=== PATIENT | female | born 1995 | race Caucasian/White ===

== ENCOUNTER 2017-09-26 09:38 | Day surgery (SDC) | payer BC, SELFPAY ==
[2017-09-26] VITALS (9 sets, daily range): BP systolic 124–154; BP diastolic 63–76; PULSE 87–98; RESP 14–16; TEMP 36.4–36.9; O2SAT 95–100; BMI 35.6
--- NOTE | 2017-09-26 | PILCYST_PTH ---
PATIENT: RENETTA DUONG LOC: [facility] [place] U#:[id number] AGE/SX: 22/F ROOM: RE09/26/[address]: Dr. Brenton Alegre MD : [id number] BED: DIS: 09/26/2017 SPEC #: [id number] RECD: 09/26/17 17:31 STATUS: ENRIQUE CARY #: [id number] JOSE C: 09/26/17 00:[address]: Brenton Alegre DEPT: SURGICAL PATHOLOGY RECD BY: Shahriar Patel ENTERED: 09/27/17 11:49 SP TYPE: Pilonidal OTHR DR: Dr. Mayito River MD Tissues: PILONIDAL TISSUE Procedures: Surgery Specimen Level III HEADER OPERATION: Excision pilonidal cyst PRE-OP DIAGNOSIS: Pilonidal cyst without abscess TISSUE SUBMITTED: Pilonidal cyst MICROSCOPIC DIAGNOSIS Pilonidal cyst, excision: Consistent with pilonidal cyst with associated acute and chronic inflammation and granulation. AM:paulette 09/28/17 MICROSCOPIC DESCRIPTION Slides are reviewed. GROSS DESCRIPTION Received in fixative is one container labeled with the patient's name and designated pilonidal cyst. The specimen consists of a piece of skin with underlying tissue measuring 10 x 1 cm and up to 3.5 cm in thickness. Sections reveal a congested, focally cystic area. No mass lesion is identified. Piece Marker [employer] sections are submitted in two cassettes. / SJ:paulette 09/27/17 TC:2 CPT: 80655
[2017-09-26 10:07] LABS: Internal QC Validated? YES +Cl - CLEAR BKGD; Pregnancy, Urine Negative Negative
[2017-09-26] MEDS: Clindamycin 900 MG/50 ML BAG 75 MG IV (11:11)
--- NOTE | 2017-09-26 11:21 | DCINST_ITS ---
Discharge Diet: Light diet - advance as tolerated - If you have questions about your diet instructions, please talk to your doctor. Discharge Activity: May Not Drive - for 1 week or while taking narcotic pain medicine. May shower in (days): 1 Lifting Restrictions: 10 pounds Call your doctor if your incision/area has: Continuous Slow Oozing, Sudden Increased Bleeding, Increased Pain/ Swelling, Increased Redness, Foul Smelling Discharge Call your doctor if you observe: Fever of 101 or Higher Suture Line Care: Avoid Pulling/Pushing, Avoid Pinching/Bending Additional Dressing/Incision Instructions:: Change or remove dressing in 4 days. Leave steri-strips in place for 1 week. Allergies/Adverse Reactions: Allergies amoxicillin Allergy (Mild, Verified 09/24/17 10:03) rash Medications to take at Discharge norethindrone-e.estradiol triphasic 0.5 mg/0.75 mg/1 mg-35 mcg tablet 1 tab PO QDAY 09/04/17 Oxycodone HCl/Acetaminophen [Percocet 5/325] 1 - 2 tab PO Q4H PRN PRN 4 Days # 30 tab 09/26/17 The following prescriptions were given: Oxycodone HCl/Acetaminophen [Percocet 5/325] 1 - 2 tab PO Q4H PRN PRN 4 Days # 30 tab PRN Reason: Pain Primary Care Physician: Mayito River MD [Primary Care Provider] - Please Follow Up With: Brenton Alegre MD - [phone] When: Call to make an appointment to be seen in about 10 days.
--- NOTE | 2017-09-26 11:21 | PCM.OPRPT ---
Problem List (1) Pilonidal cyst without abscess Status: Acute Report of Operation Date of Procedure: 09/26/17 Pre-Operative Diagnosis: L05.91 Pilonidal cyst without abscess Post-Operative Diagnosis: same Surgery/Procedure Performed:: Excision of pilonidal cyst Type of Anesthesia:: General Anesthesiologist: Lopez Hayes Estimated Blood Loss (mL): <25 cc Description of Procedure: Patient was brought into the operating room. Under excellent general endotracheal intubation the patient was then placed in the prone position properly padded. The buttocks was taped apart. It was sterilely prepped and draped in the usual fashion. A 14 cm elliptical incision was made around the pilonidal area. This dissection was carried down all the way to the tailbone and the fascia of the tailbone with the use of electrocautery. I sent the specimen to pathology for permanent sectioning. I injected Exparel all around the incision and deep into the incision. I irrigated out the wound I had good hemostasis. I brought the wound together with a deep layer of 0 Vicryl interrupted sutures in the deep dermal layer of 2-0 Vicryl. I did not feel it was necessary that I bring any further together the skin with Monocryl given the fact that it was so closely approximated. Steri-Strips are applied sterile dressings were applied and the patient tolerated the procedure well. - Admit VTE Documentation VTE Present on Admission: No VTE Mechan Device Prophylaxis: SCD's VTE Pharm Prophylaxis ordered?: No Reason prophylaxis not ordered:: Treatment Not Indicated
[2017-09-26] MEDS: BUPIVACAINE LIPOSOME/PF 20 ML VIAL OPERA.SITE (11:35)
== END 2017-09-26 17:03 | disposition home or self-care (01) ==
LOC: SDC 09:39 → AC 09:41
PROVIDERS: Family Provider Family Medicine; PCP Family Medicine; Visit Provider Surgery
PROC: (CPT 11771; principal; 2017-09-26 11:05)
DX: L05.91 Pilonidal cyst without abscess (principal); M54.5 Low back pain; G89.29 Other chronic pain; Z79.899 Other long term (current) drug therapy; Z86.2 Personal history of diseases of the blood and blood-forming organs and certain disorders involving the immune mechanism
CPT/HCPCS: 00300; 11771; 81025; 88304; J7120; J2405

== ENCOUNTER 2018-02-08 16:30 | Outpatient (RCR) | payer BC, SELFPAY ==
[2018-01-17 10:31] VITALS: BP 135/86; PULSE 87; RESP 18; TEMP 36.6
--- NOTE | 2018-01-17 13:15 | HP.PCM_ITS ---
(1) Non-healing surgical wound Status: Acute Current Visit: Yes Code(s): T81.89XA - Other complications of procedures, not elsewhere classified, initial encounter History of Present Illness Date of Service: 01/17/18 Chief Complaint: Non healing surgical wound. History of Wound: Ms. Ochoa is a 22yo in apparent stable health who presents to the wound center due to non healing post surgical wound. She had a pilonidal cyst surgery in september due to recurrent pilonidal cysyt however,since surgery, she has had problems with healing. She currently packs by herself with gauze and changes these daily. She still follows up with her primary care physician and general surgeon. She denies chills, fever or otherwise feeling of unwell. Past Medical History Allergies/Adverse Reactions: Allergies amoxicillin Allergy (Mild, Verified 01/17/18 10:50) rash Home Medications: Ambulatory Orders Medication Instructions Recorded Paroxetine [Paxil] 10 mg PO DAILY 01/17/18 Smoking Status: Never smoker Review of Systems Constitutional: Denies: Anorexia, Chills, Fever Eyes: Denies: Blurred vision, Pain, Redness HEENT: Denies: Difficulty Swallowing Cardiovascular: Denies: Chest Pain, Chest Tightness Respiratory: Denies: Cough, Shortness of Breath Gastrointestinal: Denies: Abdominal Pain, Hematemesis, Vomiting Skin: Denies: Jaundice - Physical Exam Vital Signs Temp Pulse Resp BP 97.9 F 87 18 135/86 H 01/17/18 10:31 01/17/18 10:31 01/17/18 10:31 01/17/18 10:31 General: Alert, Oriented x3, Cooperative, No apparent distress HEENT: Atraumatic Oral: Moist Mucosa Neck: Supple Lungs: Clear to auscultation, Normal air movement Cardiovascular: Regular rate, Regular Rhythm Abdomen: Soft Extremities: No cyanosis, No edema Skin: Ulcer/ Wound Wound Measurements and Assessment WC - Nurse 1 - General Ulcer Measurement Start: 01/17/18 09:09 Freq: Status: Active Protocol: Activity Type Activity Date Activity User E-Sign Co-Sign Detail Recorded Client Recorded Date Recorded By Document 01/17/18 10:31 DL [id number] 01/17/18 10:46 DL 01/17/18 10:31 Wound Center Nurse 1 [Ulcer Assessment] #1 Pilonidal -Current Size (cm) - Length 4 -Current Size (cm) - Width 1 -Current Size (cm) - Depth 4.4 -Total Square Cm 4 -Photo Taken Yes -Tunneling Yes -Tunneling Position (O'clock) 12 -Tunneling Distance (cm) 4 -Exudate Amt Large (67-100%) -Exudate Type Serosanguineous -Wound Margin Distinct, Outline Attached -Granulation Amt Large (67-100%) -Granulation Quality Red -Necrosis Amt None Present (0 %) -Structure Exposed N/A -Texture (Halima-wound Skin Appearance) No Abnormality -Moisture (Halima-wound Skin Appearance No Abnormality ) -Color (Halima-wound Skin Appearance) No Abnormality -Temperature (Halima-wound Skin No Abnormality Appearance) (Pt Warm) -Ulcer Cleansing Wound Cleanser -Foul Odor after Cleansing No -Anesthetic Used 4% Lidocaine Solution Musculoskeletal: No Muscle Wasting Neurological: Cranial nerves II-XII grossly intact Psych/Mental Status: Normal Affect Debridement Note Wound debrided: Midline Buttocks Wound Grade/Stage: Stage III Type of Debridement: Excisional debridement Anesthesia Used: 4% Lidocaine Solution Depth: Down to and including healthy tissue, in the subcutaneous layer Percentage of wound debrided: 100 Instrument Used: 5mm curette Tissue Removed: Biofilm and devitalized tissue Severity: Fat Layer Exposed Amount of bleeding with debridement: Mild Bleeding Controlled with: Pressure Patient tolerated procedure well Assessment/Plan Active Problems (Last Reviewed 12/31/17 @ 10:12 by Roopa Neil) Non-healing surgical wound (Acute) Assessment: Nonhealing postsurgical wound. Plan: As stated above patient presents with a nonhealing post pilonidal cyst removal wound. Surgery was said to be in September. Current measures so far has not helped. Debridement done as documented above. Procedure was well- tolerated. Sindhu daily with Adaptic over top for now however, I believe patient will most benefit from a wound VAC. Process is underway to get this. Increased protein intake/supplements. Follow-up in 1 week. Advised to call with any questions or concerns. This note was generated with [employer] software. It may contain incorrect words, spelling, and punctuation that were not noted in checking the note before signing.
[2018-01-23 11:56] VITALS: BP 136/69; PULSE 80; RESP 16; TEMP 36.9
--- NOTE | 2018-01-23 12:19 | PCM.WC.PN ---
(1) Non-healing surgical wound Status: Acute Current Visit: Yes Code(s): T81.89XA - Other complications of procedures, not elsewhere classified, initial encounter Type of Wound Date of Service: 01/23/18 Chief Complaint: Non healing surgical wound. History of Wound: Ms. Ochoa is a 22yo in apparent stable health who presents to the wound center due to non healing post surgical wound. She had a pilonidal cyst surgery in september due to recurrent pilonidal cysyt however,since surgery, she has had problems with healing. She currently packs by herself with gauze and changes these daily. She still follows up with her primary care physician and general surgeon. She denies chills, fever or otherwise feeling of unwell. Progress of Wound: Stable. No new complaints. - Physical Exam Vital Signs Temp Pulse Resp BP 98.4 F 80 16 136/69 H 01/23/18 11:56 01/23/18 11:56 01/23/18 11:56 01/23/18 11:56 General: Alert, Oriented x3, Cooperative, No apparent distress HEENT: Atraumatic Oral: Moist Mucosa Neck: Supple Lungs: Normal air movement Abdomen: Non Tender Extremities: No cyanosis Skin: Ulcer/ Wound Wound Measurements and Assessment WC - Nurse 1 - General Ulcer Measurement Start: 01/17/18 09:09 Freq: Status: Active Protocol: Activity Type Activity Date Activity User E-Sign Co-Sign Detail Recorded Client Recorded Date Recorded By Document 01/23/18 11:56 NV [email or web address] 01/23/18 12:03 NV 01/23/18 11:56 Wound Center Nurse 1 [Ulcer Assessment] #1 Pilonidal -Combined with other wound No -Current Size (cm) - Length 4 -Current Size (cm) - Width 1.0 -Current Size (cm) - Depth 1.8 -Total Square Cm 4.0 -Photo Taken No -Tunneling No -Undermining/Tunneling No -Circular Undermining No -Exudate Amt Small (1-33%) -Exudate Type Serosanguineous -Wound Margin Thickened -Granulation Amt Large (67-100%) -Granulation Quality Red -Slough/Fibrin No -Texture (Halima-wound Skin Appearance) Assessed -Moisture (Halima-wound Skin Appearance Assessed ) -Color (Halima-wound Skin Appearance) Assessed -Temperature (Halima-wound Skin No Abnormality Appearance) (Pt Warm) -Tenderness on Palpation (Halima-wound No Skin Appearance) -Ulcer Cleansing Rinsed/ Irrigated with Saline -Foul Odor after Cleansing No -Anesthetic Used 4% Lidocaine Solution - Nurse 2 - General Ulcer CM Notes Start: 01/17/18 09:09 Freq: Status: Active Protocol: Activity Type Activity Date Activity User E-Sign Co-Sign Detail Recorded Client Recorded Date Recorded By Document 01/23/18 12:13 [id number] 01/23/18 12:18 01/23/18 12:13 Wound Center Nurse 2 [Procedure/Treatment] -Time 12:14 -Correct Patient Yes -Correct Side, Site, Position Yes -Correct Procedure Yes -Procedure Performed Yes -Type of Procedure Debridement -Clinical Debridement Subcutaneous -Post Debridement Size (cm) - Length 5.0 -Post Debridement Size (cm) - Width 1.0 -Post Debridement Size (cm) - Depth 3.5 -Total Square Cm 5.00 -Wound/Ulcer Outcome Not Healed -Ulcer Cleansing Rinsed/ Irrigated with Saline -Foul Odor after Cleansing No -Bioengineered Tissue No -Bleeding Controlled with Pressure -Treatment Response Procedure Tolerated Well [See Physician Procedure note for Specifics] Pain Scale: 0-10 Numeric [Pain] -Is Patient Pain Free? Yes Musculoskeletal: No Muscle Wasting Neurological: Cranial nerves II-XII grossly intact Psych/Mental Status: Normal Affect Debridement Note Post-Debridement Measurements/Treatment - Nurse 2 - General Ulcer CM Notes Start: 01/17/18 09:09 Freq: Status: Active Protocol: Activity Type Activity Date Activity User E-Sign Co-Sign Detail Recorded Client Recorded Date Recorded By Document 01/23/18 12:13 [id number] 01/23/18 12:18 01/23/18 12:13 Wound Center Nurse 2 #1 Pilonidal -Time 12:14 -Correct Patient Yes -Correct Side, Site, Position Yes -Correct Procedure Yes -Procedure Performed Yes -Type of Procedure Debridement -Clinical Debridement Subcutaneous -Post Debridement Size (cm) - Length 5.0 -Post Debridement Size (cm) - Width 1.0 -Post Debridement Size (cm) - Depth 3.5 -Total Square Cm 5.00 -Wound/Ulcer Outcome Not Healed -Ulcer Cleansing Rinsed/ Irrigated with Saline -Foul Odor after Cleansing No -Bioengineered Tissue No -Bleeding Controlled with Pressure -Treatment Response Procedure Tolerated Well Pain Scale: 0-10 Numeric Is Patient Pain Free? Yes Wound debrided: Midline Buttocks Wound Grade/Stage: Stage II Type of Debridement: Excisional debridement Anesthesia Used: 4% Lidocaine Solution Depth: Down to and including healthy tissue, in the subcutaneous layer Percentage of wound debrided: 100 Instrument Used: 5mm curette Tissue Removed: Devitalized tissue and Biofilm Severity: Fat Layer Exposed Amount of bleeding with debridement: Mild Bleeding Controlled with: Pressure Patient tolerated procedure well Assessment/Plan Active Problems (Last Reviewed 12/31/17 @ 10:12 by Roopa Neil) Non-healing surgical wound (Acute) Assessment: Nonhealing postsurgical wound. Plan: Debridement done as documented above. Procedure was well-tolerated. Vac now available. Will start at 80mmHg. Adaptic over wound prior to foam placement. Follow up on sunday for vac change. May continue to work if she can accomodate Vac. Increased protein intake/supplements. Follow-up in 1 week. Advised to call with any questions or concerns. This note was generated with [employer] dictation software. It may contain incorrect words, spelling, and punctuation that were not noted in checking the note before signing.
--- NOTE | 2018-01-23 12:23 | PN.PCM_ITS ---
(1) Non-healing surgical wound Status: Acute Current Visit: Yes Code(s): T81.89XA - Other complications of procedures, not elsewhere classified, initial encounter Type of Wound Date of Service: 01/23/18 Chief Complaint: Non healing surgical wound. History of Wound: Ms. Ochoa is a 22yo in apparent stable health who presents to the wound center due to non healing post surgical wound. She had a pilonidal cyst surgery in september due to recurrent pilonidal cysyt however,since surgery, she has had problems with healing. She currently packs by herself with gauze and changes these daily. She still follows up with her primary care physician and general surgeon. She denies chills, fever or otherwise feeling of unwell. Progress of Wound: Stable. No new complaints. - Physical Exam Vital Signs Temp Pulse Resp BP 98.4 F 80 16 136/69 H 01/23/18 11:56 01/23/18 11:56 01/23/18 11:56 01/23/18 11:56 General: Alert, Oriented x3, Cooperative, No apparent distress HEENT: Atraumatic Oral: Moist Mucosa Neck: Supple Lungs: Normal air movement Abdomen: Non Tender Extremities: No cyanosis Skin: Ulcer/ Wound Wound Measurements and Assessment WC - Nurse 1 - General Ulcer Measurement Start: 01/17/18 09:09 Freq: Status: Active Protocol: Activity Type Activity Date Activity User E-Sign Co-Sign Detail Recorded Client Recorded Date Recorded By Document 01/23/18 11:56 [place] [id number] 01/23/18 12:03 [place] 01/23/18 11:56 Wound Center Nurse 1 [Ulcer Assessment] #1 Pilonidal -Combined with other wound No -Current Size (cm) - Length 4 -Current Size (cm) - Width 1.0 -Current Size (cm) - Depth 1.8 -Total Square Cm 4.0 -Photo Taken No -Tunneling No -Undermining/Tunneling No -Circular Undermining No -Exudate Amt Small (1-33%) -Exudate Type Serosanguineous -Wound Margin Thickened -Granulation Amt Large (67-100%) -Granulation Quality Red -Slough/Fibrin No -Texture (Halima-wound Skin Appearance) Assessed -Moisture (Halima-wound Skin Appearance Assessed ) -Color (Halima-wound Skin Appearance) Assessed -Temperature (Halima-wound Skin No Abnormality Appearance) (Pt Warm) -Tenderness on Palpation (Halima-wound No Skin Appearance) -Ulcer Cleansing Rinsed/ Irrigated with Saline -Foul Odor after Cleansing No -Anesthetic Used 4% Lidocaine Solution - Nurse 2 - General Ulcer CM Notes Start: 01/17/18 09:09 Freq: Status: Active Protocol: Activity Type Activity Date Activity User E-Sign Co-Sign Detail Recorded Client Recorded Date Recorded By Document 01/23/18 12:13 [id number] 01/23/18 12:18 01/23/18 12:13 Wound Center Nurse 2 [Procedure/Treatment] -Time 12:14 -Correct Patient Yes -Correct Side, Site, Position Yes -Correct Procedure Yes -Procedure Performed Yes -Type of Procedure Debridement -Clinical Debridement Subcutaneous -Post Debridement Size (cm) - Length 5.0 -Post Debridement Size (cm) - Width 1.0 -Post Debridement Size (cm) - Depth 3.5 -Total Square Cm 5.00 -Wound/Ulcer Outcome Not Healed -Ulcer Cleansing Rinsed/ Irrigated with Saline -Foul Odor after Cleansing No -Bioengineered Tissue No -Bleeding Controlled with Pressure -Treatment Response Procedure Tolerated Well [See Physician Procedure note for Specifics] Pain Scale: 0-10 Numeric [Pain] -Is Patient Pain Free? Yes Musculoskeletal: No Muscle Wasting Neurological: Cranial nerves II-XII grossly intact Psych/Mental Status: Normal Affect Debridement Note Post-Debridement Measurements/Treatment - Nurse 2 - General Ulcer CM Notes Start: 01/17/18 09:09 Freq: Status: Active Protocol: Activity Type Activity Date Activity User E-Sign Co-Sign Detail Recorded Client Recorded Date Recorded By Document 01/23/18 12:13 [email or web address] 01/23/18 12:18 01/23/18 12:13 Wound Center Nurse 2 #1 Pilonidal -Time 12:14 -Correct Patient Yes -Correct Side, Site, Position Yes -Correct Procedure Yes -Procedure Performed Yes -Type of Procedure Debridement -Clinical Debridement Subcutaneous -Post Debridement Size (cm) - Length 5.0 -Post Debridement Size (cm) - Width 1.0 -Post Debridement Size (cm) - Depth 3.5 -Total Square Cm 5.00 -Wound/Ulcer Outcome Not Healed -Ulcer Cleansing Rinsed/ Irrigated with Saline -Foul Odor after Cleansing No -Bioengineered Tissue No -Bleeding Controlled with Pressure -Treatment Response Procedure Tolerated Well Pain Scale: 0-10 Numeric Is Patient Pain Free? Yes Wound debrided: Midline Buttocks Wound Grade/Stage: Stage II Type of Debridement: Excisional debridement Anesthesia Used: 4% Lidocaine Solution Depth: Down to and including healthy tissue, in the subcutaneous layer Percentage of wound debrided: 100 Instrument Used: 5mm curette Tissue Removed: Devitalized tissue and Biofilm Severity: Fat Layer Exposed Amount of bleeding with debridement: Mild Bleeding Controlled with: Pressure Patient tolerated procedure well Assessment/Plan Active Problems (Last Reviewed 12/31/17 @ 10:12 by Roopa Neil) Non-healing surgical wound (Acute) Assessment: Nonhealing postsurgical wound. Plan: Debridement done as documented above. Procedure was well-tolerated. Vac now available. Will start at 80mmHg. Adaptic over wound prior to foam placement. Follow up on sunday for vac change. May continue to work if she can accomodate Vac. Increased protein intake/supplements. Follow-up in 1 week. Advised to call with any questions or concerns. This note was generated with [employer] dictation software. It may contain incorrect words, spelling, and punctuation that were not noted in checking the note before signing.
[2018-01-25 16:49] VITALS: BP 140/89; PULSE 96; RESP 18; TEMP 36.8
[2018-01-28 10:52] VITALS: BP 126/70; PULSE 94; RESP 18; TEMP 37.3
[2018-01-31 10:30] VITALS: BP 141/74; PULSE 88; RESP 18; TEMP 36.6
--- NOTE | 2018-01-31 11:28 | PCM.WC.PN ---
(1) Non-healing surgical wound Status: Acute Current Visit: Yes Code(s): T81.89XA - Other complications of procedures, not elsewhere classified, initial encounter Type of Wound Date of Service: 01/31/18 Chief Complaint: Non healing surgical wound. History of Wound: Ms. Ochoa is a 22yo in apparent stable health who presents to the wound center due to non healing post surgical wound. She had a pilonidal cyst surgery in september due to recurrent pilonidal cysyt however,since surgery, she has had problems with healing. She currently packs by herself with gauze and changes these daily. She still follows up with her primary care physician and general surgeon. She denies chills, fever or otherwise feeling of unwell. Progress of Wound: Stable. No new complaints. - Physical Exam Vital Signs Temp Pulse Resp BP 98 F 88 18 141/74 H 01/31/18 10:30 01/31/18 10:30 01/31/18 10:30 01/31/18 10:30 General: Alert, Oriented x3, Cooperative, No apparent distress HEENT: Atraumatic Oral: Moist Mucosa Neck: Supple Lungs: Normal air movement Abdomen: Non Tender Skin: Ulcer/ Wound Wound Measurements and Assessment WC - Nurse 1 - General Ulcer Measurement Start: 01/17/18 09:09 Freq: Status: Active Protocol: Activity Type Activity Date Activity User E-Sign Co-Sign Detail Recorded Client Recorded Date Recorded By Document 01/31/18 10:30 RB [id number] 01/31/18 10:33 RB 01/31/18 10:30 Wound Center Nurse 1 [Ulcer Assessment] #1 Pilonidal -Combined with other wound No -Current Size (cm) - Length 5.4 -Current Size (cm) - Width 1 -Current Size (cm) - Depth 1.5 -Total Square Cm 5.4 -Photo Taken No -Tunneling No -Undermining/Tunneling No -Circular Undermining No -Classification - Thickness Full Thickness without Exposed Support Structure -Exudate Amt Medium (34-66%) -Exudate Type Serosanguineous -Wound Margin Distinct, Outline Attached -Granulation Amt Large (67-100%) -Slough/Fibrin Yes -Necrosis Amt Small (1-33%) -Necrotic Tissue Type Adherent Slough -Structure Exposed N/A -Texture (Halima-wound Skin Appearance) Assessed -Moisture (Halima-wound Skin Appearance Assessed ) -Color (Halima-wound Skin Appearance) Assessed -Temperature (Halima-wound Skin No Abnormality Appearance) (Pt Warm) -Tenderness on Palpation (Halima-wound No Skin Appearance) -Ulcer Cleansing Wound Cleanser -Foul Odor after Cleansing No -Anesthetic Used 4% Lidocaine Solution - Nurse 2 - General Ulcer CM Notes Start: 01/17/18 09:09 Freq: Status: Active Protocol: Activity Type Activity Date Activity User E-Sign Co-Sign Detail Recorded Client Recorded Date Recorded By Document 01/31/18 10:55 MW [id number] 01/31/18 10:57 MW 01/31/18 10:55 Wound Center Nurse 2 [Procedure/Treatment] -Time 10:55 -Correct Patient Yes -Correct Side, Site, Position Yes -Correct Procedure Yes -Procedure Performed Yes -Type of Procedure Debridement -Clinical Debridement Subcutaneous -Post Debridement Size (cm) - Length 5.0 -Post Debridement Size (cm) - Width 1.7 -Post Debridement Size (cm) - Depth 2.0 -Total Square Cm 8.50 -Wound/Ulcer Outcome Not Healed -Ulcer Cleansing Rinsed/ Irrigated with Saline -Foul Odor after Cleansing No -Bioengineered Tissue No -Bleeding Controlled with Pressure -Treatment Response Procedure Tolerated Well [See Physician Procedure note for Specifics] Pain Scale: 0-10 Numeric [Pain] -Is Patient Pain Free? Yes Musculoskeletal: No Muscle Wasting Neurological: Cranial nerves II-XII grossly intact Psych/Mental Status: Normal Affect Debridement Note Post-Debridement Measurements/Treatment - Nurse 2 - General Ulcer CM Notes Start: 01/17/18 09:09 Freq: Status: Active Protocol: Activity Type Activity Date Activity User E-Sign Co-Sign Detail Recorded Client Recorded Date Recorded By Document 01/23/18 12:13 CS [id number] 01/23/18 12:18 CS Document 01/31/18 10:55 MW [id number] 01/31/18 10:57 MW 01/23/18 01/31/18 12:13 10:55 Wound Center Nurse 2 #1 Pilonidal -Time 12:14 10:55 -Correct Patient Yes Yes -Correct Side, Site, Position Yes Yes -Correct Procedure Yes Yes -Procedure Performed Yes Yes -Type of Procedure Debridement Debridement -Clinical Debridement Subcutaneous Subcutaneous -Post Debridement Size (cm) - Length 5.0 5.0 -Post Debridement Size (cm) - Width 1.0 1.7 -Post Debridement Size (cm) - Depth 3.5 2.0 -Total Square Cm 5.00 8.50 -Wound/Ulcer Outcome Not Healed Not Healed -Ulcer Cleansing Rinsed/ Rinsed/ Irrigated with Irrigated with Saline Saline -Foul Odor after Cleansing No No -Bioengineered Tissue No No -Bleeding Controlled with Pressure Pressure -Treatment Response Procedure Procedure Tolerated Well Tolerated Well Pain Scale: 0-10 Numeric Is Patient Pain Free? Yes Yes Wound debrided: Midline buttocks Wound Grade/Stage: Stage II Type of Debridement: Excisional debridement Anesthesia Used: 4% Lidocaine Solution Depth: Down to and including healthy tissue, in the subcutaneous layer Percentage of wound debrided: 100 Instrument Used: 5mm curette Tissue Removed: Slough and devitalized tissue Severity: Fat Layer Exposed Amount of bleeding with debridement: Mild Bleeding Controlled with: Pressure Patient tolerated procedure well Assessment/Plan Active Problems (Last Reviewed 12/31/17 @ 10:12 by Roopa Neil) Non-healing surgical wound (Acute) Assessment: Nonhealing postsurgical wound. Plan: Debridement done as documented above. Procedure was well-tolerated. Has tolerated wound vac at 80mmHg, will increase to 125mmHg. Adaptic over wound prior to foam placement. Follow up here for vac change. May continue to work if she can accomodate Vac. Increased protein intake/supplements. Follow-up in 1 week. Advised to call with any questions or concerns. This note was generated with [employer] software. It may contain incorrect words, spelling, and punctuation that were not noted in checking the note before signing.
--- NOTE | 2018-01-31 11:33 | PN.PCM_ITS ---
(1) Non-healing surgical wound Status: Acute Current Visit: Yes Code(s): T81.89XA - Other complications of procedures, not elsewhere classified, initial encounter Type of Wound Date of Service: 01/31/18 Chief Complaint: Non healing surgical wound. History of Wound: Ms. Ochoa is a 22yo in apparent stable health who presents to the wound center due to non healing post surgical wound. She had a pilonidal cyst surgery in september due to recurrent pilonidal cysyt however,since surgery, she has had problems with healing. She currently packs by herself with gauze and changes these daily. She still follows up with her primary care physician and general surgeon. She denies chills, fever or otherwise feeling of unwell. Progress of Wound: Stable. No new complaints. - Physical Exam Vital Signs Temp Pulse Resp BP 98 F 88 18 141/74 H 01/31/18 10:30 01/31/18 10:30 01/31/18 10:30 01/31/18 10:30 General: Alert, Oriented x3, Cooperative, No apparent distress HEENT: Atraumatic Oral: Moist Mucosa Neck: Supple Lungs: Normal air movement Abdomen: Non Tender Skin: Ulcer/ Wound Wound Measurements and Assessment WC - Nurse 1 - General Ulcer Measurement Start: 01/17/18 09:09 Freq: Status: Active Protocol: Activity Type Activity Date Activity User E-Sign Co-Sign Detail Recorded Client Recorded Date Recorded By Document 01/31/18 10:30 RB [id number] 01/31/18 10:33 RB 01/31/18 10:30 Wound Center Nurse 1 [Ulcer Assessment] #1 Pilonidal -Combined with other wound No -Current Size (cm) - Length 5.4 -Current Size (cm) - Width 1 -Current Size (cm) - Depth 1.5 -Total Square Cm 5.4 -Photo Taken No -Tunneling No -Undermining/Tunneling No -Circular Undermining No -Classification - Thickness Full Thickness without Exposed Support Structure -Exudate Amt Medium (34-66%) -Exudate Type Serosanguineous -Wound Margin Distinct, Outline Attached -Granulation Amt Large (67-100%) -Slough/Fibrin Yes -Necrosis Amt Small (1-33%) -Necrotic Tissue Type Adherent Slough -Structure Exposed N/A -Texture (Halima-wound Skin Appearance) Assessed -Moisture (Halima-wound Skin Appearance Assessed ) -Color (Halima-wound Skin Appearance) Assessed -Temperature (Halima-wound Skin No Abnormality Appearance) (Pt Warm) -Tenderness on Palpation (Halima-wound No Skin Appearance) -Ulcer Cleansing Wound Cleanser -Foul Odor after Cleansing No -Anesthetic Used 4% Lidocaine Solution - Nurse 2 - General Ulcer CM Notes Start: 01/17/18 09:09 Freq: Status: Active Protocol: Activity Type Activity Date Activity User E-Sign Co-Sign Detail Recorded Client Recorded Date Recorded By Document 01/31/18 10:55 MW [id number] 01/31/18 10:57 MW 01/31/18 10:55 Wound Center Nurse 2 [Procedure/Treatment] -Time 10:55 -Correct Patient Yes -Correct Side, Site, Position Yes -Correct Procedure Yes -Procedure Performed Yes -Type of Procedure Debridement -Clinical Debridement Subcutaneous -Post Debridement Size (cm) - Length 5.0 -Post Debridement Size (cm) - Width 1.7 -Post Debridement Size (cm) - Depth 2.0 -Total Square Cm 8.50 -Wound/Ulcer Outcome Not Healed -Ulcer Cleansing Rinsed/ Irrigated with Saline -Foul Odor after Cleansing No -Bioengineered Tissue No -Bleeding Controlled with Pressure -Treatment Response Procedure Tolerated Well [See Physician Procedure note for Specifics] Pain Scale: 0-10 Numeric [Pain] -Is Patient Pain Free? Yes Musculoskeletal: No Muscle Wasting Neurological: Cranial nerves II-XII grossly intact Psych/Mental Status: Normal Affect Debridement Note Post-Debridement Measurements/Treatment - Nurse 2 - General Ulcer CM Notes Start: 01/17/18 09:09 Freq: Status: Active Protocol: Activity Type Activity Date Activity User E-Sign Co-Sign Detail Recorded Client Recorded Date Recorded By Document 01/23/18 12:13 CS [id number] 01/23/18 12:18 CS Document 01/31/18 10:55 MW [id number] 01/31/18 10:57 MW 01/23/18 01/31/18 12:13 10:55 Wound Center Nurse 2 #1 Pilonidal -Time 12:14 10:55 -Correct Patient Yes Yes -Correct Side, Site, Position Yes Yes -Correct Procedure Yes Yes -Procedure Performed Yes Yes -Type of Procedure Debridement Debridement -Clinical Debridement Subcutaneous Subcutaneous -Post Debridement Size (cm) - Length 5.0 5.0 -Post Debridement Size (cm) - Width 1.0 1.7 -Post Debridement Size (cm) - Depth 3.5 2.0 -Total Square Cm 5.00 8.50 -Wound/Ulcer Outcome Not Healed Not Healed -Ulcer Cleansing Rinsed/ Rinsed/ Irrigated with Irrigated with Saline Saline -Foul Odor after Cleansing No No -Bioengineered Tissue No No -Bleeding Controlled with Pressure Pressure -Treatment Response Procedure Procedure Tolerated Well Tolerated Well Pain Scale: 0-10 Numeric Is Patient Pain Free? Yes Yes Wound debrided: Midline buttocks Wound Grade/Stage: Stage II Type of Debridement: Excisional debridement Anesthesia Used: 4% Lidocaine Solution Depth: Down to and including healthy tissue, in the subcutaneous layer Percentage of wound debrided: 100 Instrument Used: 5mm curette Tissue Removed: Slough and devitalized tissue Severity: Fat Layer Exposed Amount of bleeding with debridement: Mild Bleeding Controlled with: Pressure Patient tolerated procedure well Assessment/Plan Active Problems (Last Reviewed 12/31/17 @ 10:12 by Roopa Neil) Non-healing surgical wound (Acute) Assessment: Nonhealing postsurgical wound. Plan: Debridement done as documented above. Procedure was well-tolerated. Has tolerated wound vac at 80mmHg, will increase to 125mmHg. Adaptic over wound prior to foam placement. Follow up here for vac change. May continue to work if she can accomodate Vac. Increased protein intake/supplements. Follow-up in 1 week. Advised to call with any questions or concerns. This note was generated with [employer] software. It may contain incorrect words, spelling, and punctuation that were not noted in checking the note before signing.
[2018-02-04 12:46] VITALS: BP 139/77; PULSE 107; RESP 16; TEMP 37.3
[2018-02-06 10:12] VITALS: BP 132/76; PULSE 90; RESP 16; TEMP 37.1
--- NOTE | 2018-02-06 11:55 | PCM.WC.PN ---
(1) Non-healing surgical wound Status: Acute Current Visit: Yes Code(s): T81.89XA - Other complications of procedures, not elsewhere classified, initial encounter Type of Wound Date of Service: 02/06/18 Chief Complaint: Non healing surgical wound. History of Wound: Ms. Ochoa is a 22yo in apparent stable health who presents to the wound center due to non healing post surgical wound. She had a pilonidal cyst surgery in september due to recurrent pilonidal cysyt however,since surgery, she has had problems with healing. She currently packs by herself with gauze and changes these daily. She still follows up with her primary care physician and general surgeon. She denies chills, fever or otherwise feeling of unwell. Progress of Wound: Improving. - Physical Exam Vital Signs Temp Pulse Resp BP 98.7 F 90 16 132/76 H 02/06/18 10:12 02/06/18 10:12 02/06/18 10:12 02/06/18 10:12 General: Alert, Oriented x3, Cooperative, No apparent distress HEENT: Atraumatic Oral: Moist Mucosa Neck: Supple Lungs: Normal air movement Cardiovascular: Regular rate Abdomen: Non Tender Extremities: No cyanosis Skin: Ulcer/ Wound Wound Measurements and Assessment WC - Nurse 1 - General Ulcer Measurement Start: 01/17/18 09:09 Freq: Status: Active Protocol: Activity Type Activity Date Activity User E-Sign Co-Sign Detail Recorded Client Recorded Date Recorded By Document 02/06/18 10:12 [id number] 02/06/18 10:29 02/06/18 10:12 Wound Center Nurse 1 [Ulcer Assessment] #1 Pilonidal -Combined with other wound No -Current Size (cm) - Length 4.8 -Current Size (cm) - Width 1.4 -Current Size (cm) - Depth 1.7 -Total Square Cm 6.72 -Exudate Amt Medium (34-66%) -Exudate Type Serosanguineous -Granulation Amt Medium (34-66%) -Granulation Quality Red -Necrosis Amt Medium (34-66%) -Necrotic Tissue Type Adherent Slough -Structure Exposed None/Limited to Skin Breakdown -Texture (Halima-wound Skin Appearance) No Abnormality Assessed -Moisture (Halima-wound Skin Appearance No Abnormality ) Assessed -Color (Halima-wound Skin Appearance) No Abnormality Assessed -Temperature (Halima-wound Skin No Abnormality Appearance) (Pt Warm) [Edema Assessment] -Lower Limb Edema Present NA WC - Nurse 2 - General Ulcer CM Notes Start: 01/17/18 09:09 Freq: Status: Active Protocol: Activity Type Activity Date Activity User E-Sign Co-Sign Detail Recorded Client Recorded Date Recorded By Document 02/06/18 10:36 MW [id number] 02/06/18 10:38 MW 02/06/18 10:36 Wound Center Nurse 2 [Procedure/Treatment] #1 Pilonidal -Time 10:37 -Correct Patient Yes -Correct Side, Site, Position Yes -Correct Procedure Yes -Procedure Performed Yes -Type of Procedure Debridement -Clinical Debridement Subcutaneous -Post Debridement Size (cm) - Length 4.5 -Post Debridement Size (cm) - Width 1.5 -Post Debridement Size (cm) - Depth 1.9 -Total Square Cm 6.75 -Wound/Ulcer Outcome Not Healed -Ulcer Cleansing Rinsed/ Irrigated with Saline -Foul Odor after Cleansing No -Bioengineered Tissue No -Bleeding Controlled with Pressure -Treatment Response Procedure Tolerated Well [See Physician Procedure note for Specifics] Pain Scale: 0-10 Numeric [Pain] -Is Patient Pain Free? Yes Musculoskeletal: No Muscle Wasting Neurological: Cranial nerves II-XII grossly intact Psych/Mental Status: Normal Affect Debridement Note Post-Debridement Measurements/Treatment - Nurse 2 - General Ulcer CM Notes Start: 01/17/18 09:09 Freq: Status: Active Protocol: Activity Type Activity Date Activity User E-Sign Co-Sign Detail Recorded Client Recorded Date Recorded By Document 01/23/18 12:13 CS [id number] 01/23/18 12:18 CS Document 01/31/18 10:55 MW [id number] 01/31/18 10:57 MW Document 02/06/18 10:36 MW [id number] 02/06/18 10:38 MW 01/23/18 01/31/18 02/06/18 12:13 10:55 10:36 Wound Center Nurse 2 #1 Pilonidal -Time 12:14 10:55 10:37 -Correct Patient Yes Yes Yes -Correct Side, Site, Position Yes Yes Yes -Correct Procedure Yes Yes Yes -Procedure Performed Yes Yes Yes -Type of Procedure Debridement Debridement Debridement -Clinical Debridement Subcutaneous Subcutaneous Subcutaneous -Post Debridement Size (cm) - Length 5.0 5.0 4.5 -Post Debridement Size (cm) - Width 1.0 1.7 1.5 -Post Debridement Size (cm) - Depth 3.5 2.0 1.9 -Total Square Cm 5.00 8.50 6.75 -Wound/Ulcer Outcome Not Healed Not Healed Not Healed -Ulcer Cleansing Rinsed/ Rinsed/ Rinsed/ Irrigated with Irrigated with Irrigated with Saline Saline Saline -Foul Odor after Cleansing No No No -Bioengineered Tissue No No No -Bleeding Controlled with Pressure Pressure Pressure -Treatment Response Procedure Procedure Procedure Tolerated Well Tolerated Well Tolerated Well Pain Scale: 0-10 Numeric Is Patient Pain Free? Yes Yes Yes Wound debrided: Midline Buttock Wound Grade/Stage: Stage III Type of Debridement: Excisional debridement Anesthesia Used: 4% Lidocaine Solution Depth: Down to and including healthy tissue, in the subcutaneous layer Percentage of wound debrided: 100 Instrument Used: 5mm curette Tissue Removed: Biofilm and devitalized tissue Severity: Fat Layer Exposed Amount of bleeding with debridement: Mild Bleeding Controlled with: Pressure Patient tolerated procedure well Assessment/Plan Active Problems (Last Reviewed 12/31/17 @ 10:12 by Roopa Neil) Non-healing surgical wound (Acute) Assessment: Nonhealing postsurgical wound. Plan: Debridement done as documented above. Procedure was well-tolerated. Has tolerated wound vac at 125mmHg, will increase to 150mmHg. Adaptic over wound prior to foam placement. Follow up here for vac change. May continue to work if she can accomodate Vac. Increased protein intake/supplements. Follow-up in 1 week. Advised to call with any questions or concerns. This note was generated with [employer] software. It may contain incorrect words, spelling, and punctuation that were not noted in checking the note before signing.
[2018-02-08 16:40] VITALS: BP 161/75; PULSE 116; RESP 16; TEMP 37
== END 2018-02-08 23:59 ==
LOC: WC 16:30
PROVIDERS: Family Provider Family Medicine; PCP Family Medicine; Visit Provider Internal Medicine
DX: T81.89XA Other complications of procedures, not elsewhere classified, initial encounter (principal); L05.91 Pilonidal cyst without abscess
CPT/HCPCS: 11042; 97605; 99211; 99212; 99213; G0463

== ENCOUNTER 2018-02-27 10:00 | Outpatient (RCR) | payer BC, SELFPAY ==
[2018-02-09 01:42] VITALS: BP 161/75; PULSE 116; RESP 16; TEMP 37
[2018-02-13 10:23] VITALS: BP 142/81; PULSE 90; RESP 18; TEMP 37.2
--- NOTE | 2018-02-13 10:43 | PCM.WC.PN ---
(1) Non-healing surgical wound Status: Acute Current Visit: Yes Code(s): T81.89XA - Other complications of procedures, not elsewhere classified, initial encounter Type of Wound Date of Service: 02/13/18 Chief Complaint: Non healing surgical wound. History of Wound: Ms. Ochoa is a 22yo in apparent stable health who presents to the wound center due to non healing post surgical wound. She had a pilonidal cyst surgery in september due to recurrent pilonidal cysyt however,since surgery, she has had problems with healing. She currently packs by herself with gauze and changes these daily. She still follows up with her primary care physician and general surgeon. She denies chills, fever or otherwise feeling of unwell. Progress of Wound: Improving. - Physical Exam Vital Signs Temp Pulse Resp BP 98.9 F 90 18 142/81 H 02/13/18 10:23 02/13/18 10:23 02/13/18 10:23 02/13/18 10:23 General: Alert, Oriented x3, Cooperative, No apparent distress HEENT: Atraumatic Oral: Moist Mucosa Neck: Supple Lungs: Normal air movement Cardiovascular: Regular rate Extremities: No cyanosis Skin: Ulcer/ Wound Wound Measurements and Assessment WC - Nurse 1 - General Ulcer Measurement Start: 02/13/18 10:23 Freq: Status: Active Protocol: Activity Type Activity Date Activity User E-Sign Co-Sign Detail Recorded Client Recorded Date Recorded By Document 02/13/18 10:23 [id number] 02/13/18 10:32 RB 02/13/18 10:23 Wound Center Nurse 1 [Ulcer Assessment] #1 Pilonidal -Combined with other wound No -Current Size (cm) - Length 5 -Current Size (cm) - Width 1.5 -Current Size (cm) - Depth 1 -Total Square Cm 7.5 -Photo Taken No -Tunneling No -Undermining/Tunneling No -Circular Undermining No -Classification - Thickness Full Thickness without Exposed Support Structure -Exudate Amt Small (1-33%) -Exudate Type Serosanguineous -Wound Margin Distinct, Outline Attached -Granulation Amt Large (67-100%) -Granulation Quality Red -Slough/Fibrin Yes -Necrosis Amt Small (1-33%) -Necrotic Tissue Type Adherent Slough -Structure Exposed N/A -Texture (Halima-wound Skin Appearance) Assessed -Moisture (Halima-wound Skin Appearance Assessed ) -Color (Halima-wound Skin Appearance) Assessed -Temperature (Halima-wound Skin No Abnormality Appearance) (Pt Warm) -Tenderness on Palpation (Halima-wound No Skin Appearance) -Ulcer Cleansing Rinsed/ Irrigated with Saline -Foul Odor after Cleansing No -Anesthetic Used 5% Lidocaine Gel WC - Nurse 2 - General Ulcer CM Notes Start: 02/13/18 10:23 Freq: Status: Active Protocol: Activity Type Activity Date Activity User E-Sign Co-Sign Detail Recorded Client Recorded Date Recorded By Document 02/13/18 10:42 MW [id number] 02/13/18 10:43 MW 02/13/18 10:42 Wound Center Nurse 2 [Procedure/Treatment] -Time 10:42 -Correct Patient Yes -Correct Side, Site, Position Yes -Correct Procedure Yes -Procedure Performed Yes -Type of Procedure Debridement -Clinical Debridement Subcutaneous -Post Debridement Size (cm) - Length 4.7 -Post Debridement Size (cm) - Width 1.0 -Post Debridement Size (cm) - Depth 1.4 -Total Square Cm 4.70 -Wound/Ulcer Outcome Not Healed -Ulcer Cleansing Rinsed/ Irrigated with Saline -Foul Odor after Cleansing No -Bioengineered Tissue No -Bleeding Controlled with Pressure -Treatment Response Procedure Tolerated Well [See Physician Procedure note for Specifics] Pain Scale: 0-10 Numeric [Pain] -Is Patient Pain Free? Yes Musculoskeletal: No Muscle Wasting Neurological: Cranial nerves II-XII grossly intact Psych/Mental Status: Normal Affect Debridement Note Post-Debridement Measurements/Treatment WC - Nurse 2 - General Ulcer CM Notes Start: 02/13/18 10:23 Freq: Status: Active Protocol: Activity Type Activity Date Activity User E-Sign Co-Sign Detail Recorded Client Recorded Date Recorded By Document 02/13/18 10:42 MW [id number] 02/13/18 10:43 MW 02/13/18 10:42 Wound Center Nurse 2 #1 Pilonidal -Time 10:42 -Correct Patient Yes -Correct Side, Site, Position Yes -Correct Procedure Yes -Procedure Performed Yes -Type of Procedure Debridement -Clinical Debridement Subcutaneous -Post Debridement Size (cm) - Length 4.7 -Post Debridement Size (cm) - Width 1.0 -Post Debridement Size (cm) - Depth 1.4 -Total Square Cm 4.70 -Wound/Ulcer Outcome Not Healed -Ulcer Cleansing Rinsed/ Irrigated with Saline -Foul Odor after Cleansing No -Bioengineered Tissue No -Bleeding Controlled with Pressure -Treatment Response Procedure Tolerated Well Pain Scale: 0-10 Numeric Is Patient Pain Free? Yes Wound debrided: Midline Buttocks Wound Grade/Stage: Stage III Type of Debridement: Excisional debridement Anesthesia Used: 4% Lidocaine Solution Depth: Down to and including healthy tissue, in the subcutaneous layer Percentage of wound debrided: 100 Instrument Used: 5mm curette Tissue Removed: Biofilm and devitalized tissue Severity: Fat Layer Exposed Amount of bleeding with debridement: Mild Bleeding Controlled with: Pressure Patient tolerated procedure well Assessment/Plan Active Problems (Last Reviewed 12/31/17 @ 10:12 by Roopa Neil) Non-healing surgical wound (Acute) Assessment: Nonhealing postsurgical wound. Plan: Debridement done as documented above. Procedure was well-tolerated. Has tolerated wound vac at 150mmHg. Will continue. Continue adaptic over wound prior to foam placement. Follow up here for vac change. May continue to work if she can accomodate Vac. Has tolerated well so far. Increased protein intake/supplements. recommended. Follow-up in 1 week. Advised to call with any questions or concerns. This note was generated with [employer] dictation software. It may contain incorrect words, spelling, and punctuation that were not noted in checking the note before signing.
--- NOTE | 2018-02-13 10:46 | PN.PCM_ITS ---
(1) Non-healing surgical wound Status: Acute Current Visit: Yes Code(s): T81.89XA - Other complications of procedures, not elsewhere classified, initial encounter Type of Wound Date of Service: 02/13/18 Chief Complaint: Non healing surgical wound. History of Wound: Ms. Ochoa is a 22yo in apparent stable health who presents to the wound center due to non healing post surgical wound. She had a pilonidal cyst surgery in september due to recurrent pilonidal cysyt however,since surgery, she has had problems with healing. She currently packs by herself with gauze and changes these daily. She still follows up with her primary care physician and general surgeon. She denies chills, fever or otherwise feeling of unwell. Progress of Wound: Improving. - Physical Exam Vital Signs Temp Pulse Resp BP 98.9 F 90 18 142/81 H 02/13/18 10:23 02/13/18 10:23 02/13/18 10:23 02/13/18 10:23 General: Alert, Oriented x3, Cooperative, No apparent distress HEENT: Atraumatic Oral: Moist Mucosa Neck: Supple Lungs: Normal air movement Cardiovascular: Regular rate Extremities: No cyanosis Skin: Ulcer/ Wound Wound Measurements and Assessment WC - Nurse 1 - General Ulcer Measurement Start: 02/13/18 10:23 Freq: Status: Active Protocol: Activity Type Activity Date Activity User E-Sign Co-Sign Detail Recorded Client Recorded Date Recorded By Document 02/13/18 10:23 [id number] 02/13/18 10:32 RB 02/13/18 10:23 Wound Center Nurse 1 [Ulcer Assessment] #1 Pilonidal -Combined with other wound No -Current Size (cm) - Length 5 -Current Size (cm) - Width 1.5 -Current Size (cm) - Depth 1 -Total Square Cm 7.5 -Photo Taken No -Tunneling No -Undermining/Tunneling No -Circular Undermining No -Classification - Thickness Full Thickness without Exposed Support Structure -Exudate Amt Small (1-33%) -Exudate Type Serosanguineous -Wound Margin Distinct, Outline Attached -Granulation Amt Large (67-100%) -Granulation Quality Red -Slough/Fibrin Yes -Necrosis Amt Small (1-33%) -Necrotic Tissue Type Adherent Slough -Structure Exposed N/A -Texture (Halima-wound Skin Appearance) Assessed -Moisture (Halima-wound Skin Appearance Assessed ) -Color (Halima-wound Skin Appearance) Assessed -Temperature (Halima-wound Skin No Abnormality Appearance) (Pt Warm) -Tenderness on Palpation (Halima-wound No Skin Appearance) -Ulcer Cleansing Rinsed/ Irrigated with Saline -Foul Odor after Cleansing No -Anesthetic Used 5% Lidocaine Gel WC - Nurse 2 - General Ulcer CM Notes Start: 02/13/18 10:23 Freq: Status: Active Protocol: Activity Type Activity Date Activity User E-Sign Co-Sign Detail Recorded Client Recorded Date Recorded By Document 02/13/18 10:42 MW [id number] 02/13/18 10:43 MW 02/13/18 10:42 Wound Center Nurse 2 [Procedure/Treatment] -Time 10:42 -Correct Patient Yes -Correct Side, Site, Position Yes -Correct Procedure Yes -Procedure Performed Yes -Type of Procedure Debridement -Clinical Debridement Subcutaneous -Post Debridement Size (cm) - Length 4.7 -Post Debridement Size (cm) - Width 1.0 -Post Debridement Size (cm) - Depth 1.4 -Total Square Cm 4.70 -Wound/Ulcer Outcome Not Healed -Ulcer Cleansing Rinsed/ Irrigated with Saline -Foul Odor after Cleansing No -Bioengineered Tissue No -Bleeding Controlled with Pressure -Treatment Response Procedure Tolerated Well [See Physician Procedure note for Specifics] Pain Scale: 0-10 Numeric [Pain] -Is Patient Pain Free? Yes Musculoskeletal: No Muscle Wasting Neurological: Cranial nerves II-XII grossly intact Psych/Mental Status: Normal Affect Debridement Note Post-Debridement Measurements/Treatment WC - Nurse 2 - General Ulcer CM Notes Start: 02/13/18 10:23 Freq: Status: Active Protocol: Activity Type Activity Date Activity User E-Sign Co-Sign Detail Recorded Client Recorded Date Recorded By Document 02/13/18 10:42 MW [id number] 02/13/18 10:43 MW 02/13/18 10:42 Wound Center Nurse 2 #1 Pilonidal -Time 10:42 -Correct Patient Yes -Correct Side, Site, Position Yes -Correct Procedure Yes -Procedure Performed Yes -Type of Procedure Debridement -Clinical Debridement Subcutaneous -Post Debridement Size (cm) - Length 4.7 -Post Debridement Size (cm) - Width 1.0 -Post Debridement Size (cm) - Depth 1.4 -Total Square Cm 4.70 -Wound/Ulcer Outcome Not Healed -Ulcer Cleansing Rinsed/ Irrigated with Saline -Foul Odor after Cleansing No -Bioengineered Tissue No -Bleeding Controlled with Pressure -Treatment Response Procedure Tolerated Well Pain Scale: 0-10 Numeric Is Patient Pain Free? Yes Wound debrided: Midline Buttocks Wound Grade/Stage: Stage III Type of Debridement: Excisional debridement Anesthesia Used: 4% Lidocaine Solution Depth: Down to and including healthy tissue, in the subcutaneous layer Percentage of wound debrided: 100 Instrument Used: 5mm curette Tissue Removed: Biofilm and devitalized tissue Severity: Fat Layer Exposed Amount of bleeding with debridement: Mild Bleeding Controlled with: Pressure Patient tolerated procedure well Assessment/Plan Active Problems (Last Reviewed 12/31/17 @ 10:12 by Roopa Neil) Non-healing surgical wound (Acute) Assessment: Nonhealing postsurgical wound. Plan: Debridement done as documented above. Procedure was well-tolerated. Has tolerated wound vac at 150mmHg. Will continue. Continue adaptic over wound prior to foam placement. Follow up here for vac change. May continue to work if she can accomodate Vac. Has tolerated well so far. Increased protein intake/ supplements. recommended. Follow-up in 1 week. Advised to call with any questions or concerns. This note was generated with [employer] dictation software. It may contain incorrect words, spelling, and punctuation that were not noted in checking the note before signing.
[2018-02-15 11:05] VITALS: BP 129/82; PULSE 92; RESP 16; TEMP 36.4
[2018-02-18 15:33] VITALS: BP 117/70; PULSE 98; TEMP 37.2
[2018-02-20 10:18] VITALS: BP 136/79; PULSE 88; RESP 18; TEMP 36.4
--- NOTE | 2018-02-20 10:36 | PN.PCM_ITS ---
(1) Non-healing surgical wound Status: Acute Current Visit: Yes Code(s): T81.89XA - Other complications of procedures, not elsewhere classified, initial encounter Type of Wound Date of Service: 02/20/18 Chief Complaint: Non healing surgical wound. History of Wound: Ms. Ochoa is a 22yo in apparent stable health who presents to the wound center due to non healing post surgical wound. She had a pilonidal cyst surgery in september due to recurrent pilonidal cysyt however,since surgery, she has had problems with healing. She currently packs by herself with gauze and changes these daily. She still follows up with her primary care physician and general surgeon. She denies chills, fever or otherwise feeling of unwell. Progress of Wound: Improving. - Physical Exam Vital Signs Temp Pulse Resp BP 97.5 F L 88 18 136/79 H 02/20/18 10:18 02/20/18 10:18 02/20/18 10:18 02/20/18 10:18 General: Alert, Oriented x3, Cooperative, No apparent distress HEENT: Atraumatic Oral: Moist Mucosa Neck: Supple Lungs: Normal air movement Cardiovascular: Regular Rhythm Abdomen: Non Tender Extremities: No cyanosis Skin: Ulcer/ Wound Wound Measurements and Assessment WC - Nurse 1 - General Ulcer Measurement Start: 02/13/18 10:23 Freq: Status: Active Protocol: Activity Type Activity Date Activity User E-Sign Co-Sign Detail Recorded Client Recorded Date Recorded By Document 02/18/18 15:33 AN [id number] 02/18/18 15:49 AN Document 02/20/18 10:18 DL [id number] 02/20/18 10:25 DL 02/18/18 02/20/18 15:33 10:18 Wound Center Nurse 1 [Ulcer Assessment] #1 Pilonidal -Combined with other wound No -Current Size (cm) - Length 4 -Current Size (cm) - Width 0.8 -Current Size (cm) - Depth 0.1 -Total Square Cm 3.2 -Photo Taken No -Epithelialization None Present -Classification - Thickness Full Thickness with Exposed Support Structure -Exudate Amt Small (1-33%) Small (1-33%) -Exudate Type Serosanguineous Sanguineous -Wound Margin Distinct, Distinct, Outline Outline Attached Attached -Granulation Amt Large (67-100%) Large (67-100%) -Granulation Quality Red Red -Necrosis Amt None Present (0 None Present (0 %) %) -Structure Exposed None/Limited to N/A Skin Breakdown -Texture (Halima-wound Skin Appearance) Rash Scarring -Moisture (Halima-wound Skin Appearance No Abnormality No Abnormality ) -Color (Halima-wound Skin Appearance) Erythema No Abnormality -Temperature (Halima-wound Skin No Abnormality No Abnormality Appearance) (Pt Warm) (Pt Warm) -Tenderness on Palpation (Halima-wound Yes Skin Appearance) -Ulcer Cleansing Rinsed/ Wound Cleanser Irrigated with Saline -Foul Odor after Cleansing Yes, Due to No Product Use -Anesthetic Used 4% Lidocaine Solution WC - Nurse 2 - General Ulcer CM Notes Start: 02/13/18 10:23 Freq: Status: Active Protocol: Activity Type Activity Date Activity User E-Sign Co-Sign Detail Recorded Client Recorded Date Recorded By Document 02/20/18 10:30 MW [id number] 02/20/18 10:32 MW 02/20/18 10:30 Wound Center Nurse 2 [Procedure/Treatment] -Time 10:30 -Correct Patient Yes -Correct Side, Site, Position Yes -Correct Procedure Yes -Procedure Performed Yes -Type of Procedure Debridement -Clinical Debridement Subcutaneous -Post Debridement Size (cm) - Length 4.7 -Post Debridement Size (cm) - Width 0.6 -Post Debridement Size (cm) - Depth 1.0 -Total Square Cm 2.82 -Wound/Ulcer Outcome Not Healed -Ulcer Cleansing Rinsed/ Irrigated with Saline -Foul Odor after Cleansing No -Bioengineered Tissue No -Bleeding Controlled with Pressure -Treatment Response Procedure Tolerated Well [See Physician Procedure note for Specifics] Pain Scale: 0-10 Numeric [Pain] -Is Patient Pain Free? Yes Musculoskeletal: No Muscle Wasting Neurological: Cranial nerves II-XII grossly intact Psych/Mental Status: Normal Affect Debridement Note Post-Debridement Measurements/Treatment - Nurse 2 - General Ulcer CM Notes Start: 02/13/18 10:23 Freq: Status: Active Protocol: Activity Type Activity Date Activity User E-Sign Co-Sign Detail Recorded Client Recorded Date Recorded By Document 02/13/18 10:42 MW [id number] 02/13/18 10:43 MW Document 02/20/18 10:30 MW [id number] 02/20/18 10:32 MW 02/13/18 02/20/18 10:42 10:30 Wound Center Nurse 2 #1 Pilonidal -Time 10:42 10:30 -Correct Patient Yes Yes -Correct Side, Site, Position Yes Yes -Correct Procedure Yes Yes -Procedure Performed Yes Yes -Type of Procedure Debridement Debridement -Clinical Debridement Subcutaneous Subcutaneous -Post Debridement Size (cm) - Length 4.7 4.7 -Post Debridement Size (cm) - Width 1.0 0.6 -Post Debridement Size (cm) - Depth 1.4 1.0 -Total Square Cm 4.70 2.82 -Wound/Ulcer Outcome Not Healed Not Healed -Ulcer Cleansing Rinsed/ Rinsed/ Irrigated with Irrigated with Saline Saline -Foul Odor after Cleansing No No -Bioengineered Tissue No No -Bleeding Controlled with Pressure Pressure -Treatment Response Procedure Procedure Tolerated Well Tolerated Well Pain Scale: 0-10 Numeric Is Patient Pain Free? Yes Yes Wound debrided: Midline Buttocks Wound Grade/Stage: Stage III Type of Debridement: Excisional debridement Anesthesia Used: 4% Lidocaine Solution Depth: Down to and including healthy tissue, in the subcutaneous layer Percentage of wound debrided: 100 Instrument Used: 5mm curette Tissue Removed: Slough and devitalized tissue Severity: Fat Layer Exposed Amount of bleeding with debridement: Mild Bleeding Controlled with: Pressure Patient tolerated procedure well Assessment/Plan Active Problems (Last Reviewed 12/31/17 @ 10:12 by Roopa Neil) Non-healing surgical wound (Acute) Assessment: Nonhealing postsurgical wound. Plan: Wound is improving. Debridement done as documented above. Procedure was well-tolerated. Continue wound Vac at 150mmHg. Continue adaptic over wound prior to foam placement. Follow up here for vac change. May continue to work if she can accomodate Vac. Has tolerated well so far. Increased protein intake/ supplements. recommended. Follow-up in 1 week. Advised to call with any questions or concerns. This note was generated with [employer] software. It may contain incorrect words, spelling, and punctuation that were not noted in checking the note before signing.
[2018-02-22 11:37] VITALS: BP 118/80; PULSE 72; RESP 18; TEMP 36.6
[2018-02-25 11:14] VITALS: BP 125/86; PULSE 78; RESP 16; TEMP 36.6
[2018-02-27 10:11] VITALS: BP 126/86; PULSE 93; RESP 16; TEMP 37
--- NOTE | 2018-02-27 10:28 | PCM.WC.PN ---
(1) Non-healing surgical wound Status: Acute Current Visit: Yes Code(s): T81.89XA - Other complications of procedures, not elsewhere classified, initial encounter Type of Wound Date of Service: 02/27/18 Chief Complaint: Non healing surgical wound. History of Wound: Ms. Ochoa is a 22yo in apparent stable health who presents to the wound center due to non healing post surgical wound. She had a pilonidal cyst surgery in september due to recurrent pilonidal cysyt however,since surgery, she has had problems with healing. She currently packs by herself with gauze and changes these daily. She still follows up with her primary care physician and general surgeon. She denies chills, fever or otherwise feeling of unwell. Progress of Wound: Stable. Did not reapply wound vac on moanday due to damaris wound irritation. - Physical Exam Vital Signs Temp Pulse Resp BP 98.6 F 93 16 126/86 H 02/27/18 10:11 02/27/18 10:11 02/27/18 10:11 02/27/18 10:11 General: Alert, Oriented x3, Cooperative, No apparent distress HEENT: Atraumatic Oral: Moist Mucosa Neck: Supple Lungs: Normal air movement Cardiovascular: Regular rate, Regular Rhythm Abdomen: Soft, Non Tender Extremities: No cyanosis Skin: Ulcer/ Wound Wound Measurements and Assessment WC - Nurse 1 - General Ulcer Measurement Start: 02/13/18 10:23 Freq: Status: Active Protocol: Activity Type Activity Date Activity User E-Sign Co-Sign Detail Recorded Client Recorded Date Recorded By Document 02/25/18 11:14 DL [id number] 02/25/18 11:16 DL Document 02/27/18 10:11 DV [id number] 02/27/18 10:18 DV 02/25/18 02/27/18 11:14 10:11 Wound Center Nurse 1 [Ulcer Assessment] #1 Pilonidal -Combined with other wound No -Current Size (cm) - Length 4.7 -Current Size (cm) - Width 1.0 -Current Size (cm) - Depth 0.1 -Total Square Cm 4.70 -Date of Last Picture (Recall this 02/27/18 field) -Photo Taken Yes -Epithelialization Small 1-33% -Tunneling No -Undermining/Tunneling No -Classification - Thickness Full Thickness without Exposed Support Structure -Exudate Amt Small (1-33%) Small (1-33%) -Exudate Type Serosanguineous Serosanguineous -Wound Margin Distinct, Flat & Intact Outline Attached -Granulation Amt Large (67-100%) Large (67-100%) -Granulation Quality Red Red -Slough/Fibrin Yes -Necrosis Amt None Present (0 Medium (34-66%) %) -Necrotic Tissue Type Adherent Slough -Structure Exposed N/A None/Limited to Skin Breakdown -Texture (Damaris-wound Skin Appearance) Excoriation Assessed Scarring Scarring -Moisture (Damaris-wound Skin Appearance No Abnormality Assessed ) Weeping -Color (Damaris-wound Skin Appearance) No Abnormality No Abnormality Assessed -Temperature (Damaris-wound Skin No Abnormality No Abnormality Appearance) (Pt Warm) (Pt Warm) -Ulcer Cleansing Wound Cleanser Rinsed/ Irrigated with Saline -Foul Odor after Cleansing No No -Anesthetic Used 4% Lidocaine 5% Lidocaine Solution Gel [Edema Assessment] -Lower Limb Edema Present No WC - Nurse 2 - General Ulcer CM Notes Start: 02/13/18 10:23 Freq: Status: Active Protocol: Activity Type Activity Date Activity User E-Sign Co-Sign Detail Recorded Client Recorded Date Recorded By Document 02/27/18 10:24 MW [id number] 02/27/18 10:25 MW 02/27/18 10:24 Wound Center Nurse 2 [Procedure/Treatment] #1 Pilonidal -Time 10:24 -Correct Patient Yes -Correct Side, Site, Position Yes -Correct Procedure Yes -Procedure Performed Yes -Type of Procedure Debridement -Clinical Debridement Subcutaneous -Post Debridement Size (cm) - Length 4.5 -Post Debridement Size (cm) - Width 1.0 -Post Debridement Size (cm) - Depth 0.7 -Total Square Cm 4.50 -Wound/Ulcer Outcome Not Healed -Ulcer Cleansing Rinsed/ Irrigated with Saline -Foul Odor after Cleansing No -Bioengineered Tissue No -Bleeding Controlled with Pressure -Treatment Response Procedure Tolerated Well [See Physician Procedure note for Specifics] Pain Scale: 0-10 Numeric [Pain] -Is Patient Pain Free? Yes Musculoskeletal: No Muscle Wasting Neurological: Cranial nerves II-XII grossly intact Psych/Mental Status: Normal Affect Debridement Note Post-Debridement Measurements/Treatment WC - Nurse 2 - General Ulcer CM Notes Start: 02/13/18 10:23 Freq: Status: Active Protocol: Activity Type Activity Date Activity User E-Sign Co-Sign Detail Recorded Client Recorded Date Recorded By Document 02/13/18 10:42 MW [id number] 02/13/18 10:43 MW Document 02/20/18 10:30 MW [id number] 02/20/18 10:32 MW Document 02/27/18 10:24 MW [id number] 02/27/18 10:25 MW 02/13/18 02/20/18 02/27/18 10:42 10:30 10:24 Wound Center Nurse 2 #1 Pilonidal -Time 10:42 10:30 10:24 -Correct Patient Yes Yes Yes -Correct Side, Site, Position Yes Yes Yes -Correct Procedure Yes Yes Yes -Procedure Performed Yes Yes Yes -Type of Procedure Debridement Debridement Debridement -Clinical Debridement Subcutaneous Subcutaneous Subcutaneous -Post Debridement Size (cm) - Length 4.7 4.7 4.5 -Post Debridement Size (cm) - Width 1.0 0.6 1.0 -Post Debridement Size (cm) - Depth 1.4 1.0 0.7 -Total Square Cm 4.70 2.82 4.50 -Wound/Ulcer Outcome Not Healed Not Healed Not Healed -Ulcer Cleansing Rinsed/ Rinsed/ Rinsed/ Irrigated with Irrigated with Irrigated with Saline Saline Saline -Foul Odor after Cleansing No No No -Bioengineered Tissue No No No -Bleeding Controlled with Pressure Pressure Pressure -Treatment Response Procedure Procedure Procedure Tolerated Well Tolerated Well Tolerated Well Pain Scale: 0-10 Numeric Is Patient Pain Free? Yes Yes Yes Wound debrided: Midline Buttock Wound Grade/Stage: Stage III Type of Debridement: Excisional debridement Anesthesia Used: 4% Lidocaine Solution Depth: Down to and including healthy tissue, in the subcutaneous layer Percentage of wound debrided: 100 Instrument Used: 3mm curette Tissue Removed: Slough and devitalized tissue Severity: Fat Layer Exposed Amount of bleeding with debridement: Mild Bleeding Controlled with: Pressure Patient tolerated procedure well Assessment/Plan Active Problems (Last Reviewed 12/31/17 @ 10:12 by Roopa Neil) Non-healing surgical wound (Acute) Assessment: Nonhealing postsurgical wound. Plan: Wound is improving. Debridement done as documented above. Procedure was well-tolerated. DC wound Vac for now. May move to a Snap Vac. For now, wiill switch to pomogran with adaptic over top. Change every other day. Increased protein intake/supplements also recommended. Follow-up in 1 week. Advised to call with any questions or concerns. This note was generated with [employer] dictation software. It may contain incorrect words, spelling, and punctuation that were not noted in checking the note before signing.
--- NOTE | 2018-02-27 10:31 | PN.PCM_ITS ---
(1) Non-healing surgical wound Status: Acute Current Visit: Yes Code(s): T81.89XA - Other complications of procedures, not elsewhere classified, initial encounter Type of Wound Date of Service: 02/27/18 Chief Complaint: Non healing surgical wound. History of Wound: Ms. Ochoa is a 22yo in apparent stable health who presents to the wound center due to non healing post surgical wound. She had a pilonidal cyst surgery in september due to recurrent pilonidal cysyt however,since surgery, she has had problems with healing. She currently packs by herself with gauze and changes these daily. She still follows up with her primary care physician and general surgeon. She denies chills, fever or otherwise feeling of unwell. Progress of Wound: Stable. Did not reapply wound vac on moanday due to damaris wound irritation. - Physical Exam Vital Signs Temp Pulse Resp BP 98.6 F 93 16 126/86 H 02/27/18 10:11 02/27/18 10:11 02/27/18 10:11 02/27/18 10:11 General: Alert, Oriented x3, Cooperative, No apparent distress HEENT: Atraumatic Oral: Moist Mucosa Neck: Supple Lungs: Normal air movement Cardiovascular: Regular rate, Regular Rhythm Abdomen: Soft, Non Tender Extremities: No cyanosis Skin: Ulcer/ Wound Wound Measurements and Assessment WC - Nurse 1 - General Ulcer Measurement Start: 02/13/18 10:23 Freq: Status: Active Protocol: Activity Type Activity Date Activity User E-Sign Co-Sign Detail Recorded Client Recorded Date Recorded By Document 02/25/18 11:14 DL [id number] 02/25/18 11:16 DL Document 02/27/18 10:11 DV [id number] 02/27/18 10:18 DV 02/25/18 02/27/18 11:14 10:11 Wound Center Nurse 1 [Ulcer Assessment] #1 Pilonidal -Combined with other wound No -Current Size (cm) - Length 4.7 -Current Size (cm) - Width 1.0 -Current Size (cm) - Depth 0.1 -Total Square Cm 4.70 -Date of Last Picture (Recall this 02/27/18 field) -Photo Taken Yes -Epithelialization Small 1-33% -Tunneling No -Undermining/Tunneling No -Classification - Thickness Full Thickness without Exposed Support Structure -Exudate Amt Small (1-33%) Small (1-33%) -Exudate Type Serosanguineous Serosanguineous -Wound Margin Distinct, Flat & Intact Outline Attached -Granulation Amt Large (67-100%) Large (67-100%) -Granulation Quality Red Red -Slough/Fibrin Yes -Necrosis Amt None Present (0 Medium (34-66%) %) -Necrotic Tissue Type Adherent Slough -Structure Exposed N/A None/Limited to Skin Breakdown -Texture (Damaris-wound Skin Appearance) Excoriation Assessed Scarring Scarring -Moisture (Damaris-wound Skin Appearance No Abnormality Assessed ) Weeping -Color (Damaris-wound Skin Appearance) No Abnormality No Abnormality Assessed -Temperature (Damaris-wound Skin No Abnormality No Abnormality Appearance) (Pt Warm) (Pt Warm) -Ulcer Cleansing Wound Cleanser Rinsed/ Irrigated with Saline -Foul Odor after Cleansing No No -Anesthetic Used 4% Lidocaine 5% Lidocaine Solution Gel [Edema Assessment] -Lower Limb Edema Present No WC - Nurse 2 - General Ulcer CM Notes Start: 02/13/18 10:23 Freq: Status: Active Protocol: Activity Type Activity Date Activity User E-Sign Co-Sign Detail Recorded Client Recorded Date Recorded By Document 02/27/18 10:24 MW [id number] 02/27/18 10:25 MW 02/27/18 10:24 Wound Center Nurse 2 [Procedure/Treatment] #1 Pilonidal -Time 10:24 -Correct Patient Yes -Correct Side, Site, Position Yes -Correct Procedure Yes -Procedure Performed Yes -Type of Procedure Debridement -Clinical Debridement Subcutaneous -Post Debridement Size (cm) - Length 4.5 -Post Debridement Size (cm) - Width 1.0 -Post Debridement Size (cm) - Depth 0.7 -Total Square Cm 4.50 -Wound/Ulcer Outcome Not Healed -Ulcer Cleansing Rinsed/ Irrigated with Saline -Foul Odor after Cleansing No -Bioengineered Tissue No -Bleeding Controlled with Pressure -Treatment Response Procedure Tolerated Well [See Physician Procedure note for Specifics] Pain Scale: 0-10 Numeric [Pain] -Is Patient Pain Free? Yes Musculoskeletal: No Muscle Wasting Neurological: Cranial nerves II-XII grossly intact Psych/Mental Status: Normal Affect Debridement Note Post-Debridement Measurements/Treatment WC - Nurse 2 - General Ulcer CM Notes Start: 02/13/18 10:23 Freq: Status: Active Protocol: Activity Type Activity Date Activity User E-Sign Co-Sign Detail Recorded Client Recorded Date Recorded By Document 02/13/18 10:42 MW [id number] 02/13/18 10:43 MW Document 02/20/18 10:30 MW [id number] 02/20/18 10:32 MW Document 02/27/18 10:24 MW [id number] 02/27/18 10:25 MW 02/13/18 02/20/18 02/27/18 10:42 10:30 10:24 Wound Center Nurse 2 #1 Pilonidal -Time 10:42 10:30 10:24 -Correct Patient Yes Yes Yes -Correct Side, Site, Position Yes Yes Yes -Correct Procedure Yes Yes Yes -Procedure Performed Yes Yes Yes -Type of Procedure Debridement Debridement Debridement -Clinical Debridement Subcutaneous Subcutaneous Subcutaneous -Post Debridement Size (cm) - Length 4.7 4.7 4.5 -Post Debridement Size (cm) - Width 1.0 0.6 1.0 -Post Debridement Size (cm) - Depth 1.4 1.0 0.7 -Total Square Cm 4.70 2.82 4.50 -Wound/Ulcer Outcome Not Healed Not Healed Not Healed -Ulcer Cleansing Rinsed/ Rinsed/ Rinsed/ Irrigated with Irrigated with Irrigated with Saline Saline Saline -Foul Odor after Cleansing No No No -Bioengineered Tissue No No No -Bleeding Controlled with Pressure Pressure Pressure -Treatment Response Procedure Procedure Procedure Tolerated Well Tolerated Well Tolerated Well Pain Scale: 0-10 Numeric Is Patient Pain Free? Yes Yes Yes Wound debrided: Midline Buttock Wound Grade/Stage: Stage III Type of Debridement: Excisional debridement Anesthesia Used: 4% Lidocaine Solution Depth: Down to and including healthy tissue, in the subcutaneous layer Percentage of wound debrided: 100 Instrument Used: 3mm curette Tissue Removed: Slough and devitalized tissue Severity: Fat Layer Exposed Amount of bleeding with debridement: Mild Bleeding Controlled with: Pressure Patient tolerated procedure well Assessment/Plan Active Problems (Last Reviewed 12/31/17 @ 10:12 by Roopa Neil) Non-healing surgical wound (Acute) Assessment: Nonhealing postsurgical wound. Plan: Wound is improving. Debridement done as documented above. Procedure was well-tolerated. DC wound Vac for now. May move to a Snap Vac. For now, wiill switch to pomogran with adaptic over top. Change every other day. Increased protein intake/supplements also recommended. Follow-up in 1 week. Advised to call with any questions or concerns. This note was generated with [employer] dictation software. It may contain incorrect words, spelling, and punctuation that were not noted in checking the note before signing.
== END 2018-03-10 23:59 ==
LOC: WC 10:00
PROVIDERS: Family Provider Family Medicine; PCP Family Medicine; Visit Provider Internal Medicine
DX: T81.89XA Other complications of procedures, not elsewhere classified, initial encounter (principal); L05.91 Pilonidal cyst without abscess
CPT/HCPCS: 11042; 97605; 99211; 99212; 99213; G0463

== ENCOUNTER 2018-04-08 10:30 | Outpatient (RCR) | payer BC, SELFPAY ==
[2018-03-11 01:16] VITALS: BP 126/86; PULSE 93; RESP 16; TEMP 37
[2018-03-13 10:34] VITALS: BP 134/92; PULSE 84; RESP 18; TEMP 37.2
--- NOTE | 2018-03-13 11:27 | PCM.WC.PN ---
(1) Non-healing surgical wound Status: Acute Current Visit: No Code(s): T81.89XA - Other complications of procedures, not elsewhere classified, initial encounter Type of Wound Chief Complaint: Non healing surgical wound. History of Wound: Ms. Ochoa is a 22yo in apparent stable health who presents to the wound center due to non healing post surgical wound. She had a pilonidal cyst surgery in september due to recurrent pilonidal cysyt however,since surgery, she has had problems with healing. She currently packs by herself with gauze and changes these daily. She still follows up with her primary care physician and general surgeon. She denies chills, fever or otherwise feeling of unwell. Progress of Wound: Has not been here in 2 weeks due to her grandma passing. Wound appears to have worsened. Snap VAC now approved. - Physical Exam Vital Signs Temp Pulse Resp BP 98.9 F 84 18 134/92 H 03/13/18 10:34 03/13/18 10:34 03/13/18 10:34 03/13/18 10:34 General: Alert, Oriented x3, Cooperative, No apparent distress HEENT: Atraumatic Oral: Moist Mucosa Neck: Supple Lungs: Normal air movement Abdomen: Non Tender Extremities: No edema Skin: Ulcer/ Wound Wound Measurements and Assessment WC - Nurse 1 - General Ulcer Measurement Start: 03/13/18 10:34 Freq: Status: Active Protocol: Activity Type Activity Date Activity User E-Sign Co-Sign Detail Recorded Client Recorded Date Recorded By Document 03/13/18 10:34 [facility] [id number] 03/13/18 10:37 [facility] 03/13/18 10:34 Wound Center Nurse 1 [Ulcer Assessment] #1 Pilonidal -Combined with other wound No -Current Size (cm) - Length 4.8 -Current Size (cm) - Width 1.2 -Current Size (cm) - Depth 0.8 -Total Square Cm 5.76 -Photo Taken No -Epithelialization None Present -Tunneling Yes -Tunneling Position (O'clock) 12 -Tunneling Distance (cm) 3.5 -Undermining/Tunneling No -Circular Undermining No -Exudate Amt None Present (0 %) -Wound Margin Distinct, Outline Attached -Granulation Amt Large (67-100%) -Granulation Quality Red -Slough/Fibrin No -Necrosis Amt None Present (0 %) -Texture (Halima-wound Skin Appearance) Assessed Scarring -Moisture (Halima-wound Skin Appearance No Abnormality ) Assessed -Color (Halima-wound Skin Appearance) No Abnormality Assessed -Temperature (Halima-wound Skin No Abnormality Appearance) (Pt Warm) -Tenderness on Palpation (Halima-wound No Skin Appearance) -Ulcer Cleansing Rinsed/ Irrigated with Saline -Foul Odor after Cleansing No -Anesthetic Used 4% Lidocaine Solution 5% Lidocaine Gel WC - Nurse 2 - General Ulcer CM Notes Start: 03/13/18 10:34 Freq: Status: Active Protocol: Activity Type Activity Date Activity User E-Sign Co-Sign Detail Recorded Client Recorded Date Recorded By Document 03/13/18 10:50 MW [id number] 03/13/18 10:55 MW 03/13/18 10:50 Wound Center Nurse 2 [Procedure/Treatment] -Time 10:50 -Correct Patient Yes -Correct Side, Site, Position Yes -Correct Procedure Yes -Procedure Performed Yes -Type of Procedure Debridement -Clinical Debridement Subcutaneous -Post Debridement Size (cm) - Length 4.8 -Post Debridement Size (cm) - Width 1.0 -Post Debridement Size (cm) - Depth 1.5 -Total Square Cm 4.80 -Wound/Ulcer Outcome Not Healed -Ulcer Cleansing Rinsed/ Irrigated with Saline -Foul Odor after Cleansing No -Bioengineered Tissue No -Bleeding Controlled with Pressure -Other tunnel @12- 4. 0cm -Treatment Response Procedure Tolerated Well [See Physician Procedure note for Specifics] Pain Scale: 0-10 Numeric [Pain] -Is Patient Pain Free? Yes Musculoskeletal: No Muscle Wasting Neurological: Cranial nerves II-XII grossly intact Psych/Mental Status: Normal Affect Debridement Note Post-Debridement Measurements/Treatment WC - Nurse 2 - General Ulcer CM Notes Start: 03/13/18 10:34 Freq: Status: Active Protocol: Activity Type Activity Date Activity User E-Sign Co-Sign Detail Recorded Client Recorded Date Recorded By Document 03/13/18 10:50 MW [id number] 03/13/18 10:55 MW 03/13/18 10:50 Wound Center Nurse 2 #1 Pilonidal -Time 10:50 -Correct Patient Yes -Correct Side, Site, Position Yes -Correct Procedure Yes -Procedure Performed Yes -Type of Procedure Debridement -Clinical Debridement Subcutaneous -Post Debridement Size (cm) - Length 4.8 -Post Debridement Size (cm) - Width 1.0 -Post Debridement Size (cm) - Depth 1.5 -Total Square Cm 4.80 -Wound/Ulcer Outcome Not Healed -Ulcer Cleansing Rinsed/ Irrigated with Saline -Foul Odor after Cleansing No -Bioengineered Tissue No -Bleeding Controlled with Pressure -Other tunnel @12- 4. 0cm -Treatment Response Procedure Tolerated Well Pain Scale: 0-10 Numeric Is Patient Pain Free? Yes Wound debrided: Midline buttock Wound Grade/Stage: Stage III Type of Debridement: Excisional debridement Anesthesia Used: 4% Lidocaine Solution Depth: Down to and including healthy tissue, in the subcutaneous layer Percentage of wound debrided: 100 Instrument Used: 3mm curette Tissue Removed: Biofilm and devitalized tissue Severity: Fat Layer Exposed Amount of bleeding with debridement: Mild Bleeding Controlled with: Pressure Patient tolerated procedure well Assessment/Plan Assessment: Nonhealing postsurgical wound. Plan: Tunneling now present with deepest tunnel at 4cm. Has about 3 tunnels. Now approved for snap VAC. Debridement done as documented above. Procedure was well-tolerated. Apply snap with foam. Follow-up on Sunday for change and also on Sunday. Increased protein intake/supplements also recommended. Follow-up with me in 1 week. Advised to call with any questions or concerns. This note was generated with [employer] software. It may contain incorrect words, spelling, and punctuation that were not noted in checking the note before signing.
--- NOTE | 2018-03-13 11:32 | PN.PCM_ITS ---
(1) Non-healing surgical wound Status: Acute Current Visit: No Code(s): T81.89XA - Other complications of procedures, not elsewhere classified, initial encounter Type of Wound Chief Complaint: Non healing surgical wound. History of Wound: Ms. Ochoa is a 22yo in apparent stable health who presents to the wound center due to non healing post surgical wound. She had a pilonidal cyst surgery in september due to recurrent pilonidal cysyt however,since surgery, she has had problems with healing. She currently packs by herself with gauze and changes these daily. She still follows up with her primary care physician and general surgeon. She denies chills, fever or otherwise feeling of unwell. Progress of Wound: Has not been here in 2 weeks due to her grandma passing. Wound appears to have worsened. Snap VAC now approved. - Physical Exam Vital Signs Temp Pulse Resp BP 98.9 F 84 18 134/92 H 03/13/18 10:34 03/13/18 10:34 03/13/18 10:34 03/13/18 10:34 General: Alert, Oriented x3, Cooperative, No apparent distress HEENT: Atraumatic Oral: Moist Mucosa Neck: Supple Lungs: Normal air movement Abdomen: Non Tender Extremities: No edema Skin: Ulcer/ Wound Wound Measurements and Assessment WC - Nurse 1 - General Ulcer Measurement Start: 03/13/18 10:34 Freq: Status: Active Protocol: Activity Type Activity Date Activity User E-Sign Co-Sign Detail Recorded Client Recorded Date Recorded By Document 03/13/18 10:34 [facility] [id number] 03/13/18 10:37 [facility] 03/13/18 10:34 Wound Center Nurse 1 [Ulcer Assessment] #1 Pilonidal -Combined with other wound No -Current Size (cm) - Length 4.8 -Current Size (cm) - Width 1.2 -Current Size (cm) - Depth 0.8 -Total Square Cm 5.76 -Photo Taken No -Epithelialization None Present -Tunneling Yes -Tunneling Position (O'clock) 12 -Tunneling Distance (cm) 3.5 -Undermining/Tunneling No -Circular Undermining No -Exudate Amt None Present (0 %) -Wound Margin Distinct, Outline Attached -Granulation Amt Large (67-100%) -Granulation Quality Red -Slough/Fibrin No -Necrosis Amt None Present (0 %) -Texture (Halima-wound Skin Appearance) Assessed Scarring -Moisture (Halima-wound Skin Appearance No Abnormality ) Assessed -Color (Halima-wound Skin Appearance) No Abnormality Assessed -Temperature (Halima-wound Skin No Abnormality Appearance) (Pt Warm) -Tenderness on Palpation (Halima-wound No Skin Appearance) -Ulcer Cleansing Rinsed/ Irrigated with Saline -Foul Odor after Cleansing No -Anesthetic Used 4% Lidocaine Solution 5% Lidocaine Gel WC - Nurse 2 - General Ulcer CM Notes Start: 03/13/18 10:34 Freq: Status: Active Protocol: Activity Type Activity Date Activity User E-Sign Co-Sign Detail Recorded Client Recorded Date Recorded By Document 03/13/18 10:50 MW [id number] 03/13/18 10:55 MW 03/13/18 10:50 Wound Center Nurse 2 [Procedure/Treatment] -Time 10:50 -Correct Patient Yes -Correct Side, Site, Position Yes -Correct Procedure Yes -Procedure Performed Yes -Type of Procedure Debridement -Clinical Debridement Subcutaneous -Post Debridement Size (cm) - Length 4.8 -Post Debridement Size (cm) - Width 1.0 -Post Debridement Size (cm) - Depth 1.5 -Total Square Cm 4.80 -Wound/Ulcer Outcome Not Healed -Ulcer Cleansing Rinsed/ Irrigated with Saline -Foul Odor after Cleansing No -Bioengineered Tissue No -Bleeding Controlled with Pressure -Other tunnel @12- 4. 0cm -Treatment Response Procedure Tolerated Well [See Physician Procedure note for Specifics] Pain Scale: 0-10 Numeric [Pain] -Is Patient Pain Free? Yes Musculoskeletal: No Muscle Wasting Neurological: Cranial nerves II-XII grossly intact Psych/Mental Status: Normal Affect Debridement Note Post-Debridement Measurements/Treatment WC - Nurse 2 - General Ulcer CM Notes Start: 03/13/18 10:34 Freq: Status: Active Protocol: Activity Type Activity Date Activity User E-Sign Co-Sign Detail Recorded Client Recorded Date Recorded By Document 03/13/18 10:50 MW [id number] 03/13/18 10:55 MW 03/13/18 10:50 Wound Center Nurse 2 #1 Pilonidal -Time 10:50 -Correct Patient Yes -Correct Side, Site, Position Yes -Correct Procedure Yes -Procedure Performed Yes -Type of Procedure Debridement -Clinical Debridement Subcutaneous -Post Debridement Size (cm) - Length 4.8 -Post Debridement Size (cm) - Width 1.0 -Post Debridement Size (cm) - Depth 1.5 -Total Square Cm 4.80 -Wound/Ulcer Outcome Not Healed -Ulcer Cleansing Rinsed/ Irrigated with Saline -Foul Odor after Cleansing No -Bioengineered Tissue No -Bleeding Controlled with Pressure -Other tunnel @12- 4. 0cm -Treatment Response Procedure Tolerated Well Pain Scale: 0-10 Numeric Is Patient Pain Free? Yes Wound debrided: Midline buttock Wound Grade/Stage: Stage III Type of Debridement: Excisional debridement Anesthesia Used: 4% Lidocaine Solution Depth: Down to and including healthy tissue, in the subcutaneous layer Percentage of wound debrided: 100 Instrument Used: 3mm curette Tissue Removed: Biofilm and devitalized tissue Severity: Fat Layer Exposed Amount of bleeding with debridement: Mild Bleeding Controlled with: Pressure Patient tolerated procedure well Assessment/Plan Assessment: Nonhealing postsurgical wound. Plan: Tunneling now present with deepest tunnel at 4cm. Has about 3 tunnels. Now approved for snap VAC. Debridement done as documented above. Procedure was well-tolerated. Apply snap with foam. Follow-up on Sunday for change and also on Sunday. Increased protein intake/supplements also recommended. Follow-up with me in 1 week. Advised to call with any questions or concerns. This note was generated with [employer] software. It may contain incorrect words, spelling, and punctuation that were not noted in checking the note before signing.
[2018-03-15 15:37] VITALS: BP 126/75; RESP 18; TEMP 36.6
[2018-03-20 09:28] VITALS: BP 129/76; PULSE 96; RESP 16; TEMP 36.8
--- NOTE | 2018-03-20 09:53 | PCM.WC.PN ---
(1) Non-healing surgical wound Status: Acute Current Visit: No Code(s): T81.89XA - Other complications of procedures, not elsewhere classified, initial encounter Type of Wound Chief Complaint: Non healing surgical wound. History of Wound: Ms. Ochoa is a 22yo in apparent stable health who presents to the wound center due to non healing post surgical wound. She had a pilonidal cyst surgery in september due to recurrent pilonidal cysyt however,since surgery, she has had problems with healing. She currently packs by herself with gauze and changes these daily. She still follows up with her primary care physician and general surgeon. She denies chills, fever or otherwise feeling of unwell. Progress of Wound: Stable. Has tolereated the SNAP vac. - Physical Exam Vital Signs Temp Pulse Resp BP 98.2 F 96 16 129/76 H 03/20/18 09:28 03/20/18 09:28 03/20/18 09:28 03/20/18 09:28 General: Alert, Oriented x3, Cooperative, No apparent distress HEENT: Atraumatic Oral: Moist Mucosa Neck: Supple Lungs: Normal air movement Abdomen: Non Tender Extremities: No cyanosis Skin: Ulcer/ Wound Wound Measurements and Assessment WC - Nurse 1 - General Ulcer Measurement Start: 03/13/18 10:34 Freq: Status: Active Protocol: Activity Type Activity Date Activity User E-Sign Co-Sign Detail Recorded Client Recorded Date Recorded By Document 03/20/18 09:28 [id number] 03/20/18 09:33 03/20/18 09:28 Wound Center Nurse 1 [Ulcer Assessment] #1 Pilonidal -Combined with other wound No -Current Size (cm) - Length 4.8 -Current Size (cm) - Width 1.0 -Current Size (cm) - Depth 1.2 -Total Square Cm 4.80 -Photo Taken No -Epithelialization Small 1-33% -Tunneling Yes -Tunneling Position (O'clock) 12 -Tunneling Distance (cm) 1.2 -Undermining/Tunneling No -Circular Undermining No -Exudate Amt Medium (34-66%) -Exudate Type Serous -Wound Margin Distinct, Outline Attached -Granulation Amt Medium (34-66%) -Granulation Quality Red -Slough/Fibrin Yes -Necrosis Amt None Present (0 %) -Necrotic Tissue Type Adherent Slough -Structure Exposed None/Limited to Skin Breakdown -Texture (Halima-wound Skin Appearance) Scarring -Moisture (Halima-wound Skin Appearance No Abnormality ) Assessed -Color (Halima-wound Skin Appearance) No Abnormality Assessed -Temperature (Halima-wound Skin No Abnormality Appearance) (Pt Warm) -Tenderness on Palpation (Halima-wound Yes Skin Appearance) -Ulcer Cleansing Wound Cleanser -Foul Odor after Cleansing No -Anesthetic Used 5% Lidocaine Gel [Edema Assessment] -Lower Limb Edema Present NA - Nurse 2 - General Ulcer CM Notes Start: 03/13/18 10:34 Freq: Status: Active Protocol: Activity Type Activity Date Activity User E-Sign Co-Sign Detail Recorded Client Recorded Date Recorded By Document 03/20/18 09:42 MW [id number] 03/20/18 09:47 MW 03/20/18 09:42 Wound Center Nurse 2 [Procedure/Treatment] #1 Pilonidal -Time 09:44 -Correct Patient Yes -Correct Side, Site, Position Yes -Correct Procedure Yes -Procedure Performed Yes -Type of Procedure Debridement -Clinical Debridement Subcutaneous -Post Debridement Size (cm) - Length 5.0 -Post Debridement Size (cm) - Width 1.0 -Post Debridement Size (cm) - Depth 1.3 -Total Square Cm 5.00 -Wound/Ulcer Outcome Not Healed -Ulcer Cleansing Rinsed/ Irrigated with Saline -Foul Odor after Cleansing No -Bioengineered Tissue No -Bleeding Controlled with Pressure -Other tunnel @ 12, 3. 0cm -Treatment Response Procedure Tolerated Well [See Physician Procedure note for Specifics] Pain Scale: 0-10 Numeric [Pain] -Is Patient Pain Free? Yes Musculoskeletal: No Muscle Wasting Neurological: Cranial nerves II-XII grossly intact Psych/Mental Status: Normal Affect Debridement Note Post-Debridement Measurements/Treatment - Nurse 2 - General Ulcer CM Notes Start: 03/13/18 10:34 Freq: Status: Active Protocol: Activity Type Activity Date Activity User E-Sign Co-Sign Detail Recorded Client Recorded Date Recorded By Document 03/13/18 10:50 MW [id number] 03/13/18 10:55 MW Document 03/20/18 09:42 MW [id number] 03/20/18 09:47 MW 03/13/18 03/20/18 10:50 09:42 Wound Center Nurse 2 #1 Pilonidal -Time 10:50 09:44 -Correct Patient Yes Yes -Correct Side, Site, Position Yes Yes -Correct Procedure Yes Yes -Procedure Performed Yes Yes -Type of Procedure Debridement Debridement -Clinical Debridement Subcutaneous Subcutaneous -Post Debridement Size (cm) - Length 4.8 5.0 -Post Debridement Size (cm) - Width 1.0 1.0 -Post Debridement Size (cm) - Depth 1.5 1.3 -Total Square Cm 4.80 5.00 -Wound/Ulcer Outcome Not Healed Not Healed -Ulcer Cleansing Rinsed/ Rinsed/ Irrigated with Irrigated with Saline Saline -Foul Odor after Cleansing No No -Bioengineered Tissue No No -Bleeding Controlled with Pressure Pressure -Other tunnel @12- 4. tunnel @ 12, 3. 0cm 0cm -Treatment Response Procedure Procedure Tolerated Well Tolerated Well Pain Scale: 0-10 Numeric Is Patient Pain Free? Yes Yes Wound debrided: Midline Buttock Wound Grade/Stage: Stage III Type of Debridement: Excisional debridement Anesthesia Used: 4% Lidocaine Solution Depth: Down to and including healthy tissue, in the subcutaneous layer Percentage of wound debrided: 100 Instrument Used: 7mm curette Tissue Removed: Slough and devitalized tissue Severity: Fat Layer Exposed Amount of bleeding with debridement: Mild Bleeding Controlled with: Pressure Patient tolerated procedure well Assessment/Plan Assessment: Nonhealing postsurgical wound. Plan: Now down to 2 tunnels with deepest at 12'O clock measuring 3 cm. Debridement done as documented above. Procedure was well tolerated. Continue SNAP vac. Follow up on Sunday for change. Increased protein intake/supplements also recommended. Follow-up with me in 1 week. Advised to call with any questions or concerns. This note was generated with [employer] software. It may contain incorrect words, spelling, and punctuation that were not noted in checking the note before signing.
--- NOTE | 2018-03-20 09:58 | PN.PCM_ITS ---
(1) Non-healing surgical wound Status: Acute Current Visit: No Code(s): T81.89XA - Other complications of procedures, not elsewhere classified, initial encounter Type of Wound Chief Complaint: Non healing surgical wound. History of Wound: Ms. Ochoa is a 22yo in apparent stable health who presents to the wound center due to non healing post surgical wound. She had a pilonidal cyst surgery in september due to recurrent pilonidal cysyt however,since surgery, she has had problems with healing. She currently packs by herself with gauze and changes these daily. She still follows up with her primary care physician and general surgeon. She denies chills, fever or otherwise feeling of unwell. Progress of Wound: Stable. Has tolereated the SNAP vac. - Physical Exam Vital Signs Temp Pulse Resp BP 98.2 F 96 16 129/76 H 03/20/18 09:28 03/20/18 09:28 03/20/18 09:28 03/20/18 09:28 General: Alert, Oriented x3, Cooperative, No apparent distress HEENT: Atraumatic Oral: Moist Mucosa Neck: Supple Lungs: Normal air movement Abdomen: Non Tender Extremities: No cyanosis Skin: Ulcer/ Wound Wound Measurements and Assessment WC - Nurse 1 - General Ulcer Measurement Start: 03/13/18 10:34 Freq: Status: Active Protocol: Activity Type Activity Date Activity User E-Sign Co-Sign Detail Recorded Client Recorded Date Recorded By Document 03/20/18 09:28 [id number] 03/20/18 09:33 03/20/18 09:28 Wound Center Nurse 1 [Ulcer Assessment] #1 Pilonidal -Combined with other wound No -Current Size (cm) - Length 4.8 -Current Size (cm) - Width 1.0 -Current Size (cm) - Depth 1.2 -Total Square Cm 4.80 -Photo Taken No -Epithelialization Small 1-33% -Tunneling Yes -Tunneling Position (O'clock) 12 -Tunneling Distance (cm) 1.2 -Undermining/Tunneling No -Circular Undermining No -Exudate Amt Medium (34-66%) -Exudate Type Serous -Wound Margin Distinct, Outline Attached -Granulation Amt Medium (34-66%) -Granulation Quality Red -Slough/Fibrin Yes -Necrosis Amt None Present (0 %) -Necrotic Tissue Type Adherent Slough -Structure Exposed None/Limited to Skin Breakdown -Texture (Halima-wound Skin Appearance) Scarring -Moisture (Halima-wound Skin Appearance No Abnormality ) Assessed -Color (Halima-wound Skin Appearance) No Abnormality Assessed -Temperature (Halima-wound Skin No Abnormality Appearance) (Pt Warm) -Tenderness on Palpation (Halima-wound Yes Skin Appearance) -Ulcer Cleansing Wound Cleanser -Foul Odor after Cleansing No -Anesthetic Used 5% Lidocaine Gel [Edema Assessment] -Lower Limb Edema Present NA - Nurse 2 - General Ulcer CM Notes Start: 03/13/18 10:34 Freq: Status: Active Protocol: Activity Type Activity Date Activity User E-Sign Co-Sign Detail Recorded Client Recorded Date Recorded By Document 03/20/18 09:42 MW [id number] 03/20/18 09:47 MW 03/20/18 09:42 Wound Center Nurse 2 [Procedure/Treatment] #1 Pilonidal -Time 09:44 -Correct Patient Yes -Correct Side, Site, Position Yes -Correct Procedure Yes -Procedure Performed Yes -Type of Procedure Debridement -Clinical Debridement Subcutaneous -Post Debridement Size (cm) - Length 5.0 -Post Debridement Size (cm) - Width 1.0 -Post Debridement Size (cm) - Depth 1.3 -Total Square Cm 5.00 -Wound/Ulcer Outcome Not Healed -Ulcer Cleansing Rinsed/ Irrigated with Saline -Foul Odor after Cleansing No -Bioengineered Tissue No -Bleeding Controlled with Pressure -Other tunnel @ 12, 3. 0cm -Treatment Response Procedure Tolerated Well [See Physician Procedure note for Specifics] Pain Scale: 0-10 Numeric [Pain] -Is Patient Pain Free? Yes Musculoskeletal: No Muscle Wasting Neurological: Cranial nerves II-XII grossly intact Psych/Mental Status: Normal Affect Debridement Note Post-Debridement Measurements/Treatment - Nurse 2 - General Ulcer CM Notes Start: 03/13/18 10:34 Freq: Status: Active Protocol: Activity Type Activity Date Activity User E-Sign Co-Sign Detail Recorded Client Recorded Date Recorded By Document 03/13/18 10:50 MW [id number] 03/13/18 10:55 MW Document 03/20/18 09:42 MW [id number] 03/20/18 09:47 MW 03/13/18 03/20/18 10:50 09:42 Wound Center Nurse 2 #1 Pilonidal -Time 10:50 09:44 -Correct Patient Yes Yes -Correct Side, Site, Position Yes Yes -Correct Procedure Yes Yes -Procedure Performed Yes Yes -Type of Procedure Debridement Debridement -Clinical Debridement Subcutaneous Subcutaneous -Post Debridement Size (cm) - Length 4.8 5.0 -Post Debridement Size (cm) - Width 1.0 1.0 -Post Debridement Size (cm) - Depth 1.5 1.3 -Total Square Cm 4.80 5.00 -Wound/Ulcer Outcome Not Healed Not Healed -Ulcer Cleansing Rinsed/ Rinsed/ Irrigated with Irrigated with Saline Saline -Foul Odor after Cleansing No No -Bioengineered Tissue No No -Bleeding Controlled with Pressure Pressure -Other tunnel @12- 4. tunnel @ 12, 3. 0cm 0cm -Treatment Response Procedure Procedure Tolerated Well Tolerated Well Pain Scale: 0-10 Numeric Is Patient Pain Free? Yes Yes Wound debrided: Midline Buttock Wound Grade/Stage: Stage III Type of Debridement: Excisional debridement Anesthesia Used: 4% Lidocaine Solution Depth: Down to and including healthy tissue, in the subcutaneous layer Percentage of wound debrided: 100 Instrument Used: 7mm curette Tissue Removed: Slough and devitalized tissue Severity: Fat Layer Exposed Amount of bleeding with debridement: Mild Bleeding Controlled with: Pressure Patient tolerated procedure well Assessment/Plan Assessment: Nonhealing postsurgical wound. Plan: Now down to 2 tunnels with deepest at 12'O clock measuring 3 cm. Debridement done as documented above. Procedure was well tolerated. Continue SNAP vac. Follow up on Sunday for change. Increased protein intake/supplements also recommended. Follow-up with me in 1 week. Advised to call with any questions or concerns. This note was generated with [employer] software. It may contain incorrect words, spelling, and punctuation that were not noted in checking the note before signing.
[2018-03-25 10:43] VITALS: BP 125/83; PULSE 84; RESP 16; TEMP 36.4
[2018-03-27 10:51] VITALS: BP 128/90; PULSE 82; RESP 18; TEMP 36.8
--- NOTE | 2018-03-27 13:22 | PCM.WC.PN ---
(1) Non-healing surgical wound Status: Acute Current Visit: No Code(s): T81.89XA - Other complications of procedures, not elsewhere classified, initial encounter Type of Wound Chief Complaint: Non healing surgical wound. History of Wound: Ms. Ochoa is a 22yo in apparent stable health who presents to the wound center due to non healing post surgical wound. She had a pilonidal cyst surgery in september due to recurrent pilonidal cysyt however,since surgery, she has had problems with healing. She currently packs by herself with gauze and changes these daily. She still follows up with her primary care physician and general surgeon. She denies chills, fever or otherwise feeling of unwell. Progress of Wound: Stable. No new complaints at this time. - Physical Exam Vital Signs Temp Pulse Resp BP 98.2 F 82 18 128/90 H 03/27/18 10:51 03/27/18 10:51 03/27/18 10:51 03/27/18 10:51 General: Alert, Oriented x3, Cooperative, No apparent distress HEENT: Atraumatic Oral: Moist Mucosa Neck: Supple Lungs: Normal air movement Abdomen: Non Tender Extremities: No cyanosis Skin: Ulcer/ Wound Wound Measurements and Assessment WC - Nurse 1 - General Ulcer Measurement Start: 03/13/18 10:34 Freq: Status: Active Protocol: Activity Type Activity Date Activity User E-Sign Co-Sign Detail Recorded Client Recorded Date Recorded By Document 03/27/18 10:51 ESTHER [id number] 03/27/18 11:02 ESTHER 03/27/18 10:51 Wound Center Nurse 1 [Ulcer Assessment] #1 Pilonidal -Combined with other wound No -Current Size (cm) - Length 4.5 -Current Size (cm) - Width 1.0 -Current Size (cm) - Depth 0.2 -Total Square Cm 4.50 -Photo Taken Yes -Epithelialization Small 1-33% -Tunneling Yes -Tunneling Position (O'clock) 12 -Tunneling Distance (cm) 4 -Tunneling Position #2 (O'clock) 6 -Tunneling Distance #2 (cm) 0.9 -Undermining/Tunneling No -Circular Undermining No -Exudate Amt Large (67-100%) -Exudate Type Serosanguineous -Wound Margin Flat & Intact -Granulation Amt Large (67-100%) -Granulation Quality Red -Slough/Fibrin Yes -Necrosis Amt Small (1-33%) -Necrotic Tissue Type Adherent Slough -Structure Exposed N/A -Texture (Halima-wound Skin Appearance) Assessed -Moisture (Halima-wound Skin Appearance Assessed ) Dry/Scaly -Color (Halima-wound Skin Appearance) Assessed -Temperature (Halima-wound Skin No Abnormality Appearance) (Pt Warm) -Tenderness on Palpation (Halima-wound No Skin Appearance) -Ulcer Cleansing Wound Cleanser -Foul Odor after Cleansing No -Anesthetic Used 4% Lidocaine Solution [Edema Assessment] -Lower Limb Edema Present NA - Nurse 2 - General Ulcer CM Notes Start: 03/13/18 10:34 Freq: Status: Active Protocol: Activity Type Activity Date Activity User E-Sign Co-Sign Detail Recorded Client Recorded Date Recorded By Document 03/27/18 11:12 MW [id number] 03/27/18 11:14 MW 03/27/18 11:12 Wound Center Nurse 2 [Procedure/Treatment] #1 Pilonidal -Time 11:12 -Correct Patient Yes -Correct Side, Site, Position Yes -Correct Procedure Yes -Procedure Performed Yes -Type of Procedure Debridement -Clinical Debridement Subcutaneous -Post Debridement Size (cm) - Length 5.0 -Post Debridement Size (cm) - Width 0.7 -Post Debridement Size (cm) - Depth 1.5 -Total Square Cm 3.50 -Wound/Ulcer Outcome Not Healed -Ulcer Cleansing Rinsed/ Irrigated with Saline -Foul Odor after Cleansing No -Bioengineered Tissue No -Bleeding Controlled with Pressure -Other TUNNEL @ 12 - 1 .5CM -Treatment Response Procedure Tolerated Well [See Physician Procedure note for Specifics] Pain Scale: 0-10 Numeric [Pain] -Is Patient Pain Free? Yes Musculoskeletal: No Muscle Wasting Neurological: Cranial nerves II-XII grossly intact Psych/Mental Status: Normal Affect Debridement Note Post-Debridement Measurements/Treatment - Nurse 2 - General Ulcer CM Notes Start: 03/13/18 10:34 Freq: Status: Active Protocol: Activity Type Activity Date Activity User E-Sign Co-Sign Detail Recorded Client Recorded Date Recorded By Document 03/13/18 10:50 MW [id number] 03/13/18 10:55 MW Document 03/20/18 09:42 MW [id number] 03/20/18 09:47 MW Document 03/27/18 11:12 MW [id number] 03/27/18 11:14 MW 03/13/18 03/20/18 03/27/18 10:50 09:42 11:12 Wound Center Nurse 2 #1 Pilonidal -Time 10: 09:44 11:12 -Correct Patient Yes Yes Yes -Correct Side, Site, Position Yes Yes Yes -Correct Procedure Yes Yes Yes -Procedure Performed Yes Yes Yes -Type of Procedure Debridement Debridement Debridement -Clinical Debridement Subcutaneous Subcutaneous Subcutaneous -Post Debridement Size (cm) - Length 4.8 5.0 5.0 -Post Debridement Size (cm) - Width 1.0 1.0 0.7 -Post Debridement Size (cm) - Depth 1.5 1.3 1.5 -Total Square Cm 4.80 5.00 3.50 -Wound/Ulcer Outcome Not Healed Not Healed Not Healed -Ulcer Cleansing Rinsed/ Rinsed/ Rinsed/ Irrigated with Irrigated with Irrigated with Saline Saline Saline -Foul Odor after Cleansing No No No -Bioengineered Tissue No No No -Bleeding Controlled with Pressure Pressure Pressure -Other tunnel @12- 4. tunnel @ 12, 3. TUNNEL @ 12 - 1 0cm 0cm .5CM -Treatment Response Procedure Procedure Procedure Tolerated Well Tolerated Well Tolerated Well Pain Scale: 0-10 Numeric Is Patient Pain Free? Yes Yes Yes Wound debrided: Midline buttock Wound Grade/Stage: Stage III Type of Debridement: Excisional debridement Anesthesia Used: 4% Lidocaine Solution Depth: Down to and including healthy tissue, in the subcutaneous layer Percentage of wound debrided: 100 Instrument Used: 7mm curette Tissue Removed: Slough and devitalized tissue Severity: Fat Layer Exposed Amount of bleeding with debridement: Mild Bleeding Controlled with: Pressure Patient tolerated procedure well Assessment/Plan Assessment: Nonhealing postsurgical wound. Plan: No primarily down to 1 tunnel still at the 12 o'clock position measuring about 3.8 cm. Debridement done as documented above. Procedure was well tolerated. Continue SNAP vac. Follow up on Sunday for change. Increased protein intake/supplements also recommended. Follow-up with me in 1 week. Advised to call with any questions or concerns. This note was generated with [employer] software. It may contain incorrect words, spelling, and punctuation that were not noted in checking the note before signing.
[2018-04-01 11:25] VITALS: BP 158/69; PULSE 104; RESP 16; TEMP 36.8
--- NOTE | 2018-04-01 11:29 | WC ---
Applied new disposable vac with new plunger
[2018-04-04 10:30] VITALS: RESP 18; TEMP 37
--- NOTE | 2018-04-04 11:17 | PN.PCM_ITS ---
(1) Non-healing surgical wound Status: Chronic Current Visit: Yes Code(s): T81.89XA - Other complications of procedures, not elsewhere classified, initial encounter Type of Wound Chief Complaint: Non healing surgical wound. History of Wound: Ms. Ochoa is a 22yo in apparent stable health who presents to the wound center due to non healing post surgical wound. She had a pilonidal cyst surgery in september due to recurrent pilonidal cysyt however,since surgery, she has had problems with healing. She currently packs by herself with gauze and changes these daily. She still follows up with her primary care physician and general surgeon. She denies chills, fever or otherwise feeling of unwell. Progress of Wound: Snap VAC was not reapplied on Sunday due to problems with hold. Otherwise no complaints at this time. - Physical Exam Vital Signs Temp Pulse Resp BP 98.6 F 104 H 18 158/69 H 04/04/18 10:30 04/01/18 11:25 04/04/18 10:30 04/01/18 11:25 General: Alert, Oriented x3, Cooperative, No apparent distress HEENT: Atraumatic, Normocephalic Oral: Moist Mucosa Neck: Supple Lungs: Normal air movement Extremities: No cyanosis Skin: Ulcer/ Wound Wound Measurements and Assessment WC - Nurse 1 - General Ulcer Measurement Start: 03/13/18 10:34 Freq: Status: Active Protocol: Activity Type Activity Date Activity User E-Sign Co-Sign Detail Recorded Client Recorded Date Recorded By Document 04/04/18 10:30 [id number] 04/04/18 10:43 04/04/18 10:30 Wound Center Nurse 1 [Ulcer Assessment] #1 Pilonidal -Combined with other wound No -Photo Taken No -Epithelialization Small 1-33% -Tunneling No -Undermining/Tunneling No -Circular Undermining No -Classification - Thickness Full Thickness without Exposed Support Structure -Exudate Amt Small (1-33%) -Exudate Type Serosanguineous -Wound Margin Well Defined, Not Attached -Granulation Amt None Present (0 %) WC - Nurse 2 - General Ulcer CM Notes Start: 03/13/18 10:34 Freq: Status: Active Protocol: Activity Type Activity Date Activity User E-Sign Co-Sign Detail Recorded Client Recorded Date Recorded By Document 04/04/18 10:52 MW [id number] 04/04/18 10:56 MW 04/04/18 10:52 Wound Center Nurse 2 [Procedure/Treatment] -Time 10:53 -Correct Patient Yes -Correct Side, Site, Position Yes -Correct Procedure Yes -Procedure Performed Yes -Type of Procedure Debridement -Clinical Debridement Subcutaneous -Post Debridement Size (cm) - Length 5.0 -Post Debridement Size (cm) - Width 0.7 -Post Debridement Size (cm) - Depth 1.9 -Total Square Cm 3.50 -Wound/Ulcer Outcome Not Healed -Ulcer Cleansing Rinsed/ Irrigated with Saline -Foul Odor after Cleansing No -Bioengineered Tissue No -Bleeding Controlled with Pressure -Treatment Response Procedure Tolerated Well [See Physician Procedure note for Specifics] Pain Scale: 0-10 Numeric [Pain] -Is Patient Pain Free? Yes Neurological: Cranial nerves II-XII grossly intact Psych/Mental Status: Normal Affect Debridement Note Post-Debridement Measurements/Treatment WC - Nurse 2 - General Ulcer CM Notes Start: 03/13/18 10:34 Freq: Status: Active Protocol: Activity Type Activity Date Activity User E-Sign Co-Sign Detail Recorded Client Recorded Date Recorded By Document 03/13/18 10:50 MW [id number] 03/13/18 10:55 MW Document 03/20/18 09:42 MW [id number] 03/20/18 09:47 MW Document 03/27/18 11:12 MW [id number] 03/27/18 11:14 MW Document 04/04/18 10:52 MW [id number] 04/04/18 10:56 MW 03/13/18 03/20/18 03/27/18 10:50 09:42 11:12 Wound Center Nurse 2 #1 Pilonidal -Time 10:50 09:44 11:12 -Correct Patient Yes Yes Yes -Correct Side, Site, Position Yes Yes Yes -Correct Procedure Yes Yes Yes -Procedure Performed Yes Yes Yes -Type of Procedure Debridement Debridement Debridement -Clinical Debridement Subcutaneous Subcutaneous Subcutaneous -Post Debridement Size (cm) - Length 4.8 5.0 5.0 -Post Debridement Size (cm) - Width 1.0 1.0 0.7 -Post Debridement Size (cm) - Depth 1.5 1.3 1.5 -Total Square Cm 4.80 5.00 3.50 -Wound/Ulcer Outcome Not Healed Not Healed Not Healed -Ulcer Cleansing Rinsed/ Rinsed/ Rinsed/ Irrigated with Irrigated with Irrigated with Saline Saline Saline -Foul Odor after Cleansing No No No -Bioengineered Tissue No No No -Bleeding Controlled with Pressure Pressure Pressure -Other tunnel @12- 4. tunnel @ 12, 3. TUNNEL @ 12 - 1 0cm 0cm .5CM -Treatment Response Procedure Procedure Procedure Tolerated Well Tolerated Well Tolerated Well Pain Scale: 0-10 Numeric Is Patient Pain Free? Yes Yes Yes 04/04/18 10:52 Wound Center Nurse 2 #1 Pilonidal -Time 10:53 -Correct Patient Yes -Correct Side, Site, Position Yes -Correct Procedure Yes -Procedure Performed Yes -Type of Procedure Debridement -Clinical Debridement Subcutaneous -Post Debridement Size (cm) - Length 5.0 -Post Debridement Size (cm) - Width 0.7 -Post Debridement Size (cm) - Depth 1.9 -Total Square Cm 3.50 -Wound/Ulcer Outcome Not Healed -Ulcer Cleansing Rinsed/ Irrigated with Saline -Foul Odor after Cleansing No -Bioengineered Tissue No -Bleeding Controlled with Pressure -Other -Treatment Response Procedure Tolerated Well Pain Scale: 0-10 Numeric Is Patient Pain Free? Yes Wound debrided: Midline buttock Wound Grade/Stage: Stage III Type of Debridement: Excisional debridement Anesthesia Used: 4% Lidocaine Solution Depth: Down to and including healthy tissue, in the subcutaneous layer Percentage of wound debrided: 100 Instrument Used: 7mm curette Tissue Removed: Devitalized tissue and biofilm Severity: Fat Layer Exposed Amount of bleeding with debridement: Mild Bleeding Controlled with: Pressure Patient tolerated procedure well Assessment/Plan Active Problems (Last Reviewed 12/31/17 @ 10:12 by Roopa Neil) Non-healing surgical wound (Chronic) Assessment: Nonhealing postsurgical wound. Plan: Tunnel at 12:00 now down to 3 cm. Debridement done as documented above. Procedure was well tolerated. Continue SNAP vac. Follow up on Sunday for change. Increased protein intake/supplements also recommended. Follow-up with me in 1 week. Advised to call with any questions or concerns. This note was generated with [employer] software. It may contain incorrect words, spelling, and punctuation that were not noted in checking the note before signing.
[2018-04-08 10:46] VITALS: BP 127/76; PULSE 103; RESP 16; TEMP 36.9
== END 2018-04-10 23:59 ==
LOC: WC 10:30
PROVIDERS: Family Provider Family Medicine; PCP Family Medicine; Visit Provider Internal Medicine
DX: T81.89XA Other complications of procedures, not elsewhere classified, initial encounter (principal); L05.91 Pilonidal cyst without abscess
CPT/HCPCS: 11042; 97606; 97607; 99212; G0463

== ENCOUNTER 2018-05-08 10:30 | Outpatient (RCR) | payer BC, SELFPAY ==
[2018-04-11 01:16] VITALS: BP 127/76; PULSE 103; RESP 16; TEMP 36.9
[2018-04-11 09:13] VITALS: BP 129/80; PULSE 79; RESP 16; TEMP 37.2
--- NOTE | 2018-04-11 10:46 | PCM.WC.PN ---
(1) Non-healing surgical wound Status: Chronic Current Visit: No Code(s): T81.89XA - Other complications of procedures, not elsewhere classified, initial encounter Type of Wound Chief Complaint: Non healing surgical wound. History of Wound: Ms. Ochoa is a 22yo in apparent stable health who presents to the wound center due to non healing post surgical wound. She had a pilonidal cyst surgery in september due to recurrent pilonidal cysyt however,since surgery, she has had problems with healing. She currently packs by herself with gauze and changes these daily. She still follows up with her primary care physician and general surgeon. She denies chills, fever or otherwise feeling of unwell. Progress of Wound: Stable. Tolerating snap better. - Physical Exam Vital Signs Temp Pulse Resp BP 98.9 F 79 16 129/80 H 04/11/18 09:13 04/11/18 09:13 04/11/18 09:13 04/11/18 09:13 General: Alert, Oriented x3, Cooperative, No apparent distress HEENT: Atraumatic, Normocephalic Oral: Moist Mucosa Neck: Supple Lungs: Normal air movement Abdomen: Soft, Non Tender Extremities: No cyanosis Skin: Ulcer/ Wound Wound Measurements and Assessment WC - Nurse 1 - General Ulcer Measurement Start: 04/11/18 09:13 Freq: Status: Active Protocol: Activity Type Activity Date Activity User E-Sign Co-Sign Detail Recorded Client Recorded Date Recorded By Document 04/11/18 09:13 [id number] 04/11/18 09:24 04/11/18 09:13 Wound Center Nurse 1 [Ulcer Assessment] #1 Pilonidal -Combined with other wound No -Current Size (cm) - Length 4 -Current Size (cm) - Width 1.3 -Current Size (cm) - Depth 1.3 -Total Square Cm 5.2 -Photo Taken No -Epithelialization Small 1-33% -Tunneling No -Undermining/Tunneling Yes -Undermining/Tunneling Starts (O' 12 clock) -Undermining/Tunneling Ends (O'clock) 1 -Maximum Distance (cm) 1.6 -Circular Undermining No -Exudate Amt Medium (34-66%) -Exudate Type Serous -Wound Margin Distinct, Outline Attached -Granulation Amt Large (67-100%) -Granulation Quality [place] Red -Slough/Fibrin Yes -Necrosis Amt None Present (0 %) -Necrotic Tissue Type Adherent Slough -Structure Exposed None/Limited to Skin Breakdown -Texture (Halima-wound Skin Appearance) Assessed Scarring -Moisture (Halima-wound Skin Appearance No Abnormality ) Assessed -Color (Halima-wound Skin Appearance) No Abnormality Assessed -Temperature (Halima-wound Skin No Abnormality Appearance) (Pt Warm) -Tenderness on Palpation (Halima-wound Yes Skin Appearance) -Ulcer Cleansing Wound Cleanser -Foul Odor after Cleansing No -Anesthetic Used 4% Lidocaine Solution [Edema Assessment] -Lower Limb Edema Present NA - Nurse 2 - General Ulcer CM Notes Start: 04/11/18 09:13 Freq: Status: Active Protocol: Activity Type Activity Date Activity User E-Sign Co-Sign Detail Recorded Client Recorded Date Recorded By Document 04/11/18 09:31 MW [id number] 04/11/18 09:36 MW 04/11/18 09:31 Wound Center Nurse 2 [Procedure/Treatment] #1 Pilonidal -Time 09:31 -Correct Patient Yes -Correct Side, Site, Position Yes -Correct Procedure Yes -Procedure Performed Yes -Type of Procedure Debridement -Clinical Debridement Subcutaneous -Post Debridement Size (cm) - Length 4.5 -Post Debridement Size (cm) - Width 1.0 -Post Debridement Size (cm) - Depth 0.7 -Total Square Cm 4.50 -Wound/Ulcer Outcome Not Healed -Ulcer Cleansing Rinsed/ Irrigated with Saline -Foul Odor after Cleansing No -Bioengineered Tissue No -Bleeding Controlled with Pressure -Other TUNNEL @ 12 - 2 .8CM -Treatment Response Procedure Tolerated Well [See Physician Procedure note for Specifics] Pain Scale: 0-10 Numeric [Pain] -Is Patient Pain Free? Yes Musculoskeletal: No Muscle Wasting Neurological: Cranial nerves II-XII grossly intact Psych/Mental Status: Normal Affect Debridement Note Post-Debridement Measurements/Treatment - Nurse 2 - General Ulcer CM Notes Start: 04/11/18 09:13 Freq: Status: Active Protocol: Activity Type Activity Date Activity User E-Sign Co-Sign Detail Recorded Client Recorded Date Recorded By Document 04/11/18 09:31 MW [id number] 04/11/18 09:36 MW 04/11/18 09:31 Wound Center Nurse 2 #1 Pilonidal -Time 09:31 -Correct Patient Yes -Correct Side, Site, Position Yes -Correct Procedure Yes -Procedure Performed Yes -Type of Procedure Debridement -Clinical Debridement Subcutaneous -Post Debridement Size (cm) - Length 4.5 -Post Debridement Size (cm) - Width 1.0 -Post Debridement Size (cm) - Depth 0.7 -Total Square Cm 4.50 -Wound/Ulcer Outcome Not Healed -Ulcer Cleansing Rinsed/ Irrigated with Saline -Foul Odor after Cleansing No -Bioengineered Tissue No -Bleeding Controlled with Pressure -Other TUNNEL @ 12 - 2 .8CM -Treatment Response Procedure Tolerated Well Pain Scale: 0-10 Numeric Is Patient Pain Free? Yes Wound debrided: Midline buttock Wound Grade/Stage: Stage III Type of Debridement: Excisional debridement Anesthesia Used: 4% Lidocaine Solution Depth: Down to and including healthy tissue, in the subcutaneous layer Percentage of wound debrided: 100 Instrument Used: 7mm curette Tissue Removed: Slough and devitalized tissue Severity: Fat Layer Exposed Amount of bleeding with debridement: Mild Bleeding Controlled with: Pressure Patient tolerated procedure well Assessment/Plan Assessment: Nonhealing postsurgical wound. Plan: Debridement done as documented above. Procedure was well tolerated. Continue SNAP vac. Follow up on Sunday for change. Increased protein intake/supplements also recommended. Follow-up with me in 1 week. Advised to call with any questions or concerns. This note was generated with [employer] software. It may contain incorrect words, spelling, and punctuation that were not noted in checking the note before signing.
[2018-04-15 12:09] VITALS: BP 132/67; PULSE 73; RESP 18; TEMP 36.6
[2018-04-18 10:10] VITALS: BP 112/54; PULSE 87; RESP 16; TEMP 37.3
--- NOTE | 2018-04-18 11:31 | PN.PCM_ITS ---
(1) Non-healing surgical wound Status: Chronic Current Visit: Yes Code(s): T81.89XA - Other complications of procedures, not elsewhere classified, initial encounter Type of Wound Chief Complaint: Non healing surgical wound. History of Wound: Ms. Ochoa is a 22yo in apparent stable health who presents to the wound center due to non healing post surgical wound. She had a pilonidal cyst surgery in september due to recurrent pilonidal cysyt however,since surgery, she has had problems with healing. She currently packs by herself with gauze and changes these daily. She still follows up with her primary care physician and general surgeon. She denies chills, fever or otherwise feeling of unwell. Progress of Wound: Stable. No new complaints at this time - Physical Exam Vital Signs Temp Pulse Resp BP 99.1 F 87 16 112/54 L 04/18/18 10:10 04/18/18 10:10 04/18/18 10:10 04/18/18 10:10 General: Alert, Oriented x3, Cooperative, No apparent distress HEENT: Atraumatic Oral: Moist Mucosa Neck: Supple Lungs: Normal air movement Abdomen: Soft, Non Tender Extremities: No cyanosis Skin: Ulcer/ Wound Wound Measurements and Assessment WC - Nurse 1 - General Ulcer Measurement Start: 04/11/18 09:13 Freq: Status: Active Protocol: Activity Type Activity Date Activity User E-Sign Co-Sign Detail Recorded Client Recorded Date Recorded By Document 04/15/18 12:09 DL [id number] 04/15/18 12:11 DL Document 04/18/18 10:10 [id number] 04/18/18 10:17 CS 04/15/18 04/18/18 12:09 10:10 Wound Center Nurse 1 [Ulcer Assessment] #1 Pilonidal -Combined with other wound No -Current Size (cm) - Length 3.5 -Current Size (cm) - Width 1 -Current Size (cm) - Depth 0.3 -Total Square Cm 3.5 -Date of Last Picture (Recall this 04/18/18 field) -Photo Taken Yes -Epithelialization None Present -Tunneling No -Tunneling Position (O'clock) 12 -Tunneling Distance (cm) 0.9 -Tunneling Position #2 (O'clock) 1 -Undermining/Tunneling No -Circular Undermining No -Exudate Amt Medium (34-66%) -Exudate Type Serosanguineous -Wound Margin Distinct, Outline Attached -Granulation Amt Medium (34-66%) -Granulation Quality Red -Slough/Fibrin Yes -Necrosis Amt None Present (0 %) -Necrotic Tissue Type Adherent Slough -Structure Exposed None/Limited to Skin Breakdown -Texture (Halima-wound Skin Appearance) No Abnormality Scarring -Moisture (Halima-wound Skin Appearance No Abnormality No Abnormality ) Assessed -Color (Halima-wound Skin Appearance) No Abnormality No Abnormality Assessed -Temperature (Halima-wound Skin No Abnormality No Abnormality Appearance) (Pt Warm) (Pt Warm) -Tenderness on Palpation (Halima-wound Yes Skin Appearance) -Ulcer Cleansing Wound Cleanser soap -Foul Odor after Cleansing No No -Anesthetic Used 4% Lidocaine Solution [Edema Assessment] -Lower Limb Edema Present NA WC - Nurse 2 - General Ulcer CM Notes Start: 04/11/18 09:13 Freq: Status: Active Protocol: Activity Type Activity Date Activity User E-Sign Co-Sign Detail Recorded Client Recorded Date Recorded By Document 04/18/18 10:36 MW [id number] 04/18/18 10:44 MW 04/18/18 10:36 Wound Center Nurse 2 [Procedure/Treatment] #1 Pilonidal -Time 10:36 -Correct Patient Yes -Correct Side, Site, Position Yes -Correct Procedure Yes -Procedure Performed Yes -Type of Procedure Debridement -Clinical Debridement Subcutaneous -Post Debridement Size (cm) - Length 4.5 -Post Debridement Size (cm) - Width 1.0 -Post Debridement Size (cm) - Depth 1.0 -Total Square Cm 4.50 -Wound/Ulcer Outcome Not Healed -Ulcer Cleansing Rinsed/ Irrigated with Saline -Foul Odor after Cleansing No -Bioengineered Tissue No -Bleeding Controlled with Pressure -Other tunnel @ 12- 1. 7cm -Treatment Response Procedure Tolerated Well [See Physician Procedure note for Specifics] Pain Scale: 0-10 Numeric [Pain] -Is Patient Pain Free? Yes Musculoskeletal: No Muscle Wasting Neurological: Cranial nerves II-XII grossly intact Psych/Mental Status: Normal Affect Debridement Note Post-Debridement Measurements/Treatment WC - Nurse 2 - General Ulcer CM Notes Start: 04/11/18 09:13 Freq: Status: Active Protocol: Activity Type Activity Date Activity User E-Sign Co-Sign Detail Recorded Client Recorded Date Recorded By Document 04/11/18 09:31 MW [id number] 04/11/18 09:36 MW Document 04/18/18 10:36 MW [id number] 04/18/18 10:44 MW 04/11/18 04/18/18 09:31 10:36 Wound Center Nurse 2 #1 Pilonidal -Time 09:31 10:36 -Correct Patient Yes Yes -Correct Side, Site, Position Yes Yes -Correct Procedure Yes Yes -Procedure Performed Yes Yes -Type of Procedure Debridement Debridement -Clinical Debridement Subcutaneous Subcutaneous -Post Debridement Size (cm) - Length 4.5 4.5 -Post Debridement Size (cm) - Width 1.0 1.0 -Post Debridement Size (cm) - Depth 0.7 1.0 -Total Square Cm 4.50 4.50 -Wound/Ulcer Outcome Not Healed Not Healed -Ulcer Cleansing Rinsed/ Rinsed/ Irrigated with Irrigated with Saline Saline -Foul Odor after Cleansing No No -Bioengineered Tissue No No -Bleeding Controlled with Pressure Pressure -Other TUNNEL @ 12 - 2 tunnel @ 12- 1. .8CM 7cm -Treatment Response Procedure Procedure Tolerated Well Tolerated Well Pain Scale: 0-10 Numeric Is Patient Pain Free? Yes Yes Wound debrided: Midline buttock Wound Grade/Stage: Stage III Type of Debridement: Excisional debridement Anesthesia Used: 4% Lidocaine Solution Depth: Down to and including healthy tissue, in the subcutaneous layer Percentage of wound debrided: 100 Instrument Used: 3mm curette Tissue Removed: Devitalized tissue and biofilm Severity: Fat Layer Exposed Amount of bleeding with debridement: Mild Bleeding Controlled with: Pressure Patient tolerated procedure well Assessment/Plan Active Problems (Last Reviewed 12/31/17 @ 10:12 by Roopa Neil) Non-healing surgical wound (Chronic) Assessment: Nonhealing postsurgical wound. Plan: Improving. Now has an island. Tunnel also reducing in size. Debridement done as documented above. Procedure was well tolerated. Continue SNAP vac. Follow up on Sunday for change. Increased protein intake/supplements also recommended. Follow-up with me in 1 week. Advised to call with any questions or concerns. This note was generated with [employer] software. It may contain incorrect words, spelling, and punctuation that were not noted in checking the note before signing.
[2018-04-22 16:07] VITALS: BP 107/64; PULSE 78; RESP 18; TEMP 36
[2018-04-24 08:38] VITALS: BP 120/69; PULSE 84; RESP 18; TEMP 35.8
--- NOTE | 2018-04-24 10:34 | PCM.WC.PN ---
(1) Non-healing surgical wound Status: Chronic Current Visit: Yes Code(s): T81.89XA - Other complications of procedures, not elsewhere classified, initial encounter Type of Wound Chief Complaint: Non healing surgical wound. History of Wound: Ms. Ochoa is a 22yo in apparent stable health who presents to the wound center due to non healing post surgical wound. She had a pilonidal cyst surgery in september due to recurrent pilonidal cysyt however,since surgery, she has had problems with healing. She currently packs by herself with gauze and changes these daily. She still follows up with her primary care physician and general surgeon. She denies chills, fever or otherwise feeling of unwell. Progress of Wound: Stable. No new complaints at this time - Physical Exam Vital Signs Temp Pulse Resp BP 96.4 F L 84 18 120/69 04/24/18 08:38 04/24/18 08:38 04/24/18 08:38 04/24/18 08:38 General: Alert, Oriented x3, Cooperative, No apparent distress HEENT: Atraumatic Oral: Moist Mucosa Neck: Supple Lungs: Normal air movement Cardiovascular: Regular rate Extremities: No cyanosis Skin: Ulcer/ Wound Wound Measurements and Assessment WC - Nurse 1 - General Ulcer Measurement Start: 04/11/18 09:13 Freq: Status: Active Protocol: Activity Type Activity Date Activity User E-Sign Co-Sign Detail Recorded Client Recorded Date Recorded By Document 04/22/18 16:07 [id number] 04/22/18 16:11 Document 04/24/18 08:38 [id number] 04/24/18 08:43 04/22/18 04/24/18 16:07 08:38 Wound Center Nurse 1 [Ulcer Assessment] #1 Pilonidal -Combined with other wound No No -Current Size (cm) - Length 0.8 5.7 -Current Size (cm) - Width 0.7 0.5 -Current Size (cm) - Depth 1.5 1.3 -Total Square Cm 0.56 2.85 -Photo Taken No No -Epithelialization Large 67-100% -Tunneling No No -Undermining/Tunneling No No -Circular Undermining No No -Exudate Amt Large (67-100%) Medium (34-66%) -Exudate Type Serosanguineous Serosanguineous -Wound Margin Flat & Intact Distinct, Outline Attached -Granulation Amt Large (67-100%) Medium (34-66%) -Granulation Quality Red Red -Slough/Fibrin Yes Yes -Necrosis Amt Small (1-33%) Small (1-33%) -Necrotic Tissue Type Adherent Slough Adherent Slough -Structure Exposed N/A N/A -Texture (Halima-wound Skin Appearance) Assessed Assessed -Moisture (Halima-wound Skin Appearance Assessed Assessed ) Dry/Scaly -Color (Halima-wound Skin Appearance) Assessed Assessed -Temperature (Halima-wound Skin No Abnormality No Abnormality Appearance) (Pt Warm) (Pt Warm) -Tenderness on Palpation (Halima-wound No No Skin Appearance) -Ulcer Cleansing Wound Cleanser Wound Cleanser -Foul Odor after Cleansing No No -Anesthetic Used 4% Lidocaine 4% Lidocaine Solution Solution [Edema Assessment] -Lower Limb Edema Present NA NA - Nurse 2 - General Ulcer CM Notes Start: 04/11/18 09:13 Freq: Status: Active Protocol: Activity Type Activity Date Activity User E-Sign Co-Sign Detail Recorded Client Recorded Date Recorded By Document 04/24/18 09:27 [id number] 04/24/18 09:28 04/24/18 09:27 Wound Center Nurse 2 [Procedure/Treatment] #1 Pilonidal -Time 09:27 -Correct Patient Yes -Correct Side, Site, Position Yes -Correct Procedure Yes -Procedure Performed Yes -Type of Procedure Debridement -Clinical Debridement Subcutaneous -Post Debridement Size (cm) - Length 5 -Post Debridement Size (cm) - Width 0.5 -Post Debridement Size (cm) - Depth 1.5 -Total Square Cm 2.5 -Wound/Ulcer Outcome Not Healed -Ulcer Cleansing Not Cleansed -Foul Odor after Cleansing No -Bioengineered Tissue No -Bleeding Controlled with NA -Treatment Response Procedure Tolerated Well [See Physician Procedure note for Specifics] Pain Scale: 0-10 Numeric [Pain] -Is Patient Pain Free? Yes Musculoskeletal: No Muscle Wasting Neurological: Cranial nerves II-XII grossly intact Psych/Mental Status: Normal Affect Debridement Note Post-Debridement Measurements/Treatment WC - Nurse 2 - General Ulcer CM Notes Start: 04/11/18 09:13 Freq: Status: Active Protocol: Activity Type Activity Date Activity User E-Sign Co-Sign Detail Recorded Client Recorded Date Recorded By Document 04/11/18 09:31 MW [id number] 04/11/18 09:36 MW Document 04/18/18 10:36 MW [id number] 04/18/18 10:44 MW Document 04/24/18 09:27 CS [id number] 04/24/18 09:28 CS 04/11/18 04/18/18 04/24/18 09:31 10:36 09:27 Wound Center Nurse 2 #1 Pilonidal -Time 09: 10:36 09:27 -Correct Patient Yes Yes Yes -Correct Side, Site, Position Yes Yes Yes -Correct Procedure Yes Yes Yes -Procedure Performed Yes Yes Yes -Type of Procedure Debridement Debridement Debridement -Clinical Debridement Subcutaneous Subcutaneous Subcutaneous -Post Debridement Size (cm) - Length 4.5 4.5 5 -Post Debridement Size (cm) - Width 1.0 1.0 0.5 -Post Debridement Size (cm) - Depth 0.7 1.0 1.5 -Total Square Cm 4.50 4.50 2.5 -Wound/Ulcer Outcome Not Healed Not Healed Not Healed -Ulcer Cleansing Rinsed/ Rinsed/ Not Cleansed Irrigated with Irrigated with Saline Saline -Foul Odor after Cleansing No No No -Bioengineered Tissue No No No -Bleeding Controlled with Pressure Pressure NA -Other TUNNEL @ 12 - 2 tunnel @ 12- 1. .8CM 7cm -Treatment Response Procedure Procedure Procedure Tolerated Well Tolerated Well Tolerated Well Pain Scale: 0-10 Numeric Is Patient Pain Free? Yes Yes Yes Wound debrided: Midline buttock Wound Grade/Stage: Stage III Type of Debridement: Excisional debridement Anesthesia Used: 4% Lidocaine Solution Depth: Down to and including healthy tissue, in the subcutaneous layer Percentage of wound debrided: 100 Instrument Used: 3mm curette Tissue Removed: Slough and devitalized tissue Severity: Fat Layer Exposed Amount of bleeding with debridement: Mild Bleeding Controlled with: Pressure Patient tolerated procedure well Assessment/Plan Active Problems (Last Reviewed 12/31/17 @ 10:12 by Roopa Neil) Non-healing surgical wound (Chronic) Assessment: Nonhealing postsurgical wound. Plan: No significant concerns at this time. Stable wound. Debridement done as documented above. Procedure was well tolerated. Continue SNAP vac. Follow up on Sunday for change. Increased protein intake/supplements also recommended. Follow-up with me in 1 week. Advised to call with any questions or concerns. This note was generated with [employer] software. It may contain incorrect words, spelling, and punctuation that were not noted in checking the note before signing.
--- NOTE | 2018-04-24 10:45 | PN.PCM_ITS ---
(1) Non-healing surgical wound Status: Chronic Current Visit: Yes Code(s): T81.89XA - Other complications of procedures, not elsewhere classified, initial encounter Type of Wound Chief Complaint: Non healing surgical wound. History of Wound: Ms. Ochoa is a 22yo in apparent stable health who presents to the wound center due to non healing post surgical wound. She had a pilonidal cyst surgery in september due to recurrent pilonidal cysyt however,since surgery, she has had problems with healing. She currently packs by herself with gauze and changes these daily. She still follows up with her primary care physician and general surgeon. She denies chills, fever or otherwise feeling of unwell. Progress of Wound: Stable. No new complaints at this time - Physical Exam Vital Signs Temp Pulse Resp BP 96.4 F L 84 18 120/69 04/24/18 08:38 04/24/18 08:38 04/24/18 08:38 04/24/18 08:38 General: Alert, Oriented x3, Cooperative, No apparent distress HEENT: Atraumatic Oral: Moist Mucosa Neck: Supple Lungs: Normal air movement Cardiovascular: Regular rate Extremities: No cyanosis Skin: Ulcer/ Wound Wound Measurements and Assessment WC - Nurse 1 - General Ulcer Measurement Start: 04/11/18 09:13 Freq: Status: Active Protocol: Activity Type Activity Date Activity User E-Sign Co-Sign Detail Recorded Client Recorded Date Recorded By Document 04/22/18 16:07 [id number] 04/22/18 16:11 Document 04/24/18 08:38 [id number] 04/24/18 08:43 04/22/18 04/24/18 16:07 08:38 Wound Center Nurse 1 [Ulcer Assessment] #1 Pilonidal -Combined with other wound No No -Current Size (cm) - Length 0.8 5.7 -Current Size (cm) - Width 0.7 0.5 -Current Size (cm) - Depth 1.5 1.3 -Total Square Cm 0.56 2.85 -Photo Taken No No -Epithelialization Large 67-100% -Tunneling No No -Undermining/Tunneling No No -Circular Undermining No No -Exudate Amt Large (67-100%) Medium (34-66%) -Exudate Type Serosanguineous Serosanguineous -Wound Margin Flat & Intact Distinct, Outline Attached -Granulation Amt Large (67-100%) Medium (34-66%) -Granulation Quality Red Red -Slough/Fibrin Yes Yes -Necrosis Amt Small (1-33%) Small (1-33%) -Necrotic Tissue Type Adherent Slough Adherent Slough -Structure Exposed N/A N/A -Texture (Halima-wound Skin Appearance) Assessed Assessed -Moisture (Halima-wound Skin Appearance Assessed Assessed ) Dry/Scaly -Color (Halima-wound Skin Appearance) Assessed Assessed -Temperature (Halima-wound Skin No Abnormality No Abnormality Appearance) (Pt Warm) (Pt Warm) -Tenderness on Palpation (Halima-wound No No Skin Appearance) -Ulcer Cleansing Wound Cleanser Wound Cleanser -Foul Odor after Cleansing No No -Anesthetic Used 4% Lidocaine 4% Lidocaine Solution Solution [Edema Assessment] -Lower Limb Edema Present NA NA - Nurse 2 - General Ulcer CM Notes Start: 04/11/18 09:13 Freq: Status: Active Protocol: Activity Type Activity Date Activity User E-Sign Co-Sign Detail Recorded Client Recorded Date Recorded By Document 04/24/18 09:27 [id number] 04/24/18 09:28 04/24/18 09:27 Wound Center Nurse 2 [Procedure/Treatment] #1 Pilonidal -Time 09:27 -Correct Patient Yes -Correct Side, Site, Position Yes -Correct Procedure Yes -Procedure Performed Yes -Type of Procedure Debridement -Clinical Debridement Subcutaneous -Post Debridement Size (cm) - Length 5 -Post Debridement Size (cm) - Width 0.5 -Post Debridement Size (cm) - Depth 1.5 -Total Square Cm 2.5 -Wound/Ulcer Outcome Not Healed -Ulcer Cleansing Not Cleansed -Foul Odor after Cleansing No -Bioengineered Tissue No -Bleeding Controlled with NA -Treatment Response Procedure Tolerated Well [See Physician Procedure note for Specifics] Pain Scale: 0-10 Numeric [Pain] -Is Patient Pain Free? Yes Musculoskeletal: No Muscle Wasting Neurological: Cranial nerves II-XII grossly intact Psych/Mental Status: Normal Affect Debridement Note Post-Debridement Measurements/Treatment WC - Nurse 2 - General Ulcer CM Notes Start: 04/11/18 09:13 Freq: Status: Active Protocol: Activity Type Activity Date Activity User E-Sign Co-Sign Detail Recorded Client Recorded Date Recorded By Document 04/11/18 09:31 MW [id number] 04/11/18 09:36 MW Document 04/18/18 10:36 MW [id number] 04/18/18 10:44 MW Document 04/24/18 09:27 CS [id number] 04/24/18 09:28 CS 04/11/18 04/18/18 04/24/18 09:31 10:36 09:27 Wound Center Nurse 2 #1 Pilonidal -Time 09: 10:36 09:27 -Correct Patient Yes Yes Yes -Correct Side, Site, Position Yes Yes Yes -Correct Procedure Yes Yes Yes -Procedure Performed Yes Yes Yes -Type of Procedure Debridement Debridement Debridement -Clinical Debridement Subcutaneous Subcutaneous Subcutaneous -Post Debridement Size (cm) - Length 4.5 4.5 5 -Post Debridement Size (cm) - Width 1.0 1.0 0.5 -Post Debridement Size (cm) - Depth 0.7 1.0 1.5 -Total Square Cm 4.50 4.50 2.5 -Wound/Ulcer Outcome Not Healed Not Healed Not Healed -Ulcer Cleansing Rinsed/ Rinsed/ Not Cleansed Irrigated with Irrigated with Saline Saline -Foul Odor after Cleansing No No No -Bioengineered Tissue No No No -Bleeding Controlled with Pressure Pressure NA -Other TUNNEL @ 12 - 2 tunnel @ 12- 1. .8CM 7cm -Treatment Response Procedure Procedure Procedure Tolerated Well Tolerated Well Tolerated Well Pain Scale: 0-10 Numeric Is Patient Pain Free? Yes Yes Yes Wound debrided: Midline buttock Wound Grade/Stage: Stage III Type of Debridement: Excisional debridement Anesthesia Used: 4% Lidocaine Solution Depth: Down to and including healthy tissue, in the subcutaneous layer Percentage of wound debrided: 100 Instrument Used: 3mm curette Tissue Removed: Slough and devitalized tissue Severity: Fat Layer Exposed Amount of bleeding with debridement: Mild Bleeding Controlled with: Pressure Patient tolerated procedure well Assessment/Plan Active Problems (Last Reviewed 12/31/17 @ 10:12 by Roopa Neil) Non-healing surgical wound (Chronic) Assessment: Nonhealing postsurgical wound. Plan: No significant concerns at this time. Stable wound. Debridement done as documented above. Procedure was well tolerated. Continue SNAP vac. Follow up on Sunday for change. Increased protein intake/supplements also recommended. Follow-up with me in 1 week. Advised to call with any questions or concerns. This note was generated with [employer] software. It may contain incorrect words, spelling, and punctuation that were not noted in checking the note before signing.
[2018-04-29 12:41] VITALS: BP 139/75; PULSE 100; RESP 16; TEMP 37.6
[2018-05-01 08:42] VITALS: BP 119/61; PULSE 82; RESP 14; TEMP 36.5
--- NOTE | 2018-05-01 08:53 | PCM.WC.PN ---
(1) Non-healing surgical wound Status: Chronic Current Visit: Yes Code(s): T81.89XA - Other complications of procedures, not elsewhere classified, initial encounter Type of Wound Chief Complaint: Non healing surgical wound. History of Wound: Ms. Ochoa is a 22yo in apparent stable health who presents to the wound center due to non healing post surgical wound. She had a pilonidal cyst surgery in september due to recurrent pilonidal cysyt however,since surgery, she has had problems with healing. She currently packs by herself with gauze and changes these daily. She still follows up with her primary care physician and general surgeon. She denies chills, fever or otherwise feeling of unwell. Progress of Wound: Improving. No new complaints at this time. - Physical Exam Vital Signs Temp Pulse Resp BP 97.7 F L 82 14 119/61 05/01/18 08:42 05/01/18 08:42 05/01/18 08:42 05/01/18 08:42 General: Alert, Oriented x3, Cooperative, No apparent distress HEENT: Atraumatic Oral: Moist Mucosa Neck: Supple Lungs: Normal air movement Cardiovascular: Regular rate Abdomen: Bowel Sounds Present Extremities: No cyanosis Skin: Ulcer/ Wound Wound Measurements and Assessment WC - Nurse 1 - General Ulcer Measurement Start: 04/11/18 09:13 Freq: Status: Active Protocol: Activity Type Activity Date Activity User E-Sign Co-Sign Detail Recorded Client Recorded Date Recorded By Document 05/01/18 08:42 [id number] 05/01/18 08:44 05/01/18 08:42 Wound Center Nurse 1 [Ulcer Assessment] #1 Pilonidal -Combined with other wound No -Current Size (cm) - Length 4 -Current Size (cm) - Width 1.3 -Current Size (cm) - Depth 0.3 -Total Square Cm 5.2 -Photo Taken No -Epithelialization Medium 34-66% -Tunneling No -Undermining/Tunneling No -Circular Undermining No -Exudate Amt Medium (34-66%) -Exudate Type Serous -Wound Margin Distinct, Outline Attached -Granulation Amt Medium (34-66%) -Granulation Quality Red -Slough/Fibrin Yes -Necrosis Amt None Present (0 %) -Necrotic Tissue Type Adherent Slough -Structure Exposed None/Limited to Skin Breakdown -Texture (Halima-wound Skin Appearance) Scarring -Moisture (Halima-wound Skin Appearance No Abnormality ) Assessed -Color (Halima-wound Skin Appearance) No Abnormality Assessed -Temperature (Halima-wound Skin No Abnormality Appearance) (Pt Warm) -Tenderness on Palpation (Halima-wound Yes Skin Appearance) -Ulcer Cleansing Rinsed/ Irrigated with Saline -Foul Odor after Cleansing No -Anesthetic Used 4% Lidocaine Solution [Edema Assessment] -Lower Limb Edema Present NA - Nurse 2 - General Ulcer CM Notes Start: 04/11/18 09:13 Freq: Status: Active Protocol: Activity Type Activity Date Activity User E-Sign Co-Sign Detail Recorded Client Recorded Date Recorded By Document 05/01/18 08:51 MW [id number] 05/01/18 08:52 MW 05/01/18 08:51 Wound Center Nurse 2 [Procedure/Treatment] #1 Pilonidal -Time 08:51 -Correct Patient Yes -Correct Side, Site, Position Yes -Correct Procedure Yes -Procedure Performed Yes -Type of Procedure Debridement -Clinical Debridement Subcutaneous -Post Debridement Size (cm) - Length 4.0 -Post Debridement Size (cm) - Width 0.7 -Post Debridement Size (cm) - Depth 1.0 -Total Square Cm 2.80 -Wound/Ulcer Outcome Not Healed -Ulcer Cleansing Rinsed/ Irrigated with Saline -Foul Odor after Cleansing No -Bioengineered Tissue No -Bleeding Controlled with Pressure -Treatment Response Procedure Tolerated Well [See Physician Procedure note for Specifics] Pain Scale: 0-10 Numeric [Pain] -Is Patient Pain Free? Yes Musculoskeletal: No Muscle Wasting Neurological: Cranial nerves II-XII grossly intact Psych/Mental Status: Normal Affect Debridement Note Post-Debridement Measurements/Treatment - Nurse 2 - General Ulcer CM Notes Start: 04/11/18 09:13 Freq: Status: Active Protocol: Activity Type Activity Date Activity User E-Sign Co-Sign Detail Recorded Client Recorded Date Recorded By Document 04/11/18 09:31 MW [id number] 04/11/18 09:36 MW Document 04/18/18 10:36 MW [id number] 04/18/18 10:44 MW Document 04/24/18 09:27 CS [id number] 04/24/18 09:28 CS Document 05/01/18 08:51 MW [id number] 05/01/18 08:52 MW 04/11/18 04/18/18 04/24/18 09:31 10:36 09:27 Wound Center Nurse 2 #1 Pilonidal -Time 09:31 10:36 09:27 -Correct Patient Yes Yes Yes -Correct Side, Site, Position Yes Yes Yes -Correct Procedure Yes Yes Yes -Procedure Performed Yes Yes Yes -Type of Procedure Debridement Debridement Debridement -Clinical Debridement Subcutaneous Subcutaneous Subcutaneous -Post Debridement Size (cm) - Length 4.5 4.5 5 -Post Debridement Size (cm) - Width 1.0 1.0 0.5 -Post Debridement Size (cm) - Depth 0.7 1.0 1.5 -Total Square Cm 4.50 4.50 2.5 -Wound/Ulcer Outcome Not Healed Not Healed Not Healed -Ulcer Cleansing Rinsed/ Rinsed/ Not Cleansed Irrigated with Irrigated with Saline Saline -Foul Odor after Cleansing No No No -Bioengineered Tissue No No No -Bleeding Controlled with Pressure Pressure NA -Other TUNNEL @ 12 - 2 tunnel @ 12- 1. .8CM 7cm -Treatment Response Procedure Procedure Procedure Tolerated Well Tolerated Well Tolerated Well Pain Scale: 0-10 Numeric Is Patient Pain Free? Yes Yes Yes 05/01/18 08:51 Wound Center Nurse 2 #1 Pilonidal -Time 08:51 -Correct Patient Yes -Correct Side, Site, Position Yes -Correct Procedure Yes -Procedure Performed Yes -Type of Procedure Debridement -Clinical Debridement Subcutaneous -Post Debridement Size (cm) - Length 4.0 -Post Debridement Size (cm) - Width 0.7 -Post Debridement Size (cm) - Depth 1.0 -Total Square Cm 2.80 -Wound/Ulcer Outcome Not Healed -Ulcer Cleansing Rinsed/ Irrigated with Saline -Foul Odor after Cleansing No -Bioengineered Tissue No -Bleeding Controlled with Pressure -Other -Treatment Response Procedure Tolerated Well Pain Scale: 0-10 Numeric Is Patient Pain Free? Yes Wound debrided: Midline Buttock Wound Grade/Stage: Stage II Type of Debridement: Excisional debridement Anesthesia Used: 4% Lidocaine Solution Depth: Down to and including healthy tissue, in the subcutaneous layer Percentage of wound debrided: 100 Instrument Used: 3mm curette Tissue Removed: Slough and devitalized tissue Severity: Fat Layer Exposed Amount of bleeding with debridement: Mild Bleeding Controlled with: Pressure Patient tolerated procedure well Assessment/Plan Active Problems (Last Reviewed 12/31/17 @ 10:12 by Roopa Neil) Non-healing surgical wound (Chronic) Assessment: Nonhealing postsurgical wound. Plan: Improving. Tunnel at 12 is closed. Debridement done as documented above. Procedure was well tolerated. Continue SNAP vac until completely healed. Follow up on Sunday for change. She had regressed in the past on discontinuing the wound Vac. Increased protein intake/supplements also recommended. Follow-up with me in 1 week. Advised to call with any questions or concerns. This note was generated with [employer] dictation software. It may contain incorrect words, spelling, and punctuation that were not noted in checking the note before signing.
--- NOTE | 2018-05-01 08:57 | PN.PCM_ITS ---
(1) Non-healing surgical wound Status: Chronic Current Visit: Yes Code(s): T81.89XA - Other complications of procedures, not elsewhere classified, initial encounter Type of Wound Chief Complaint: Non healing surgical wound. History of Wound: Ms. Ochoa is a 22yo in apparent stable health who presents to the wound center due to non healing post surgical wound. She had a pilonidal cyst surgery in september due to recurrent pilonidal cysyt however,since surgery, she has had problems with healing. She currently packs by herself with gauze and changes these daily. She still follows up with her primary care physician and general surgeon. She denies chills, fever or otherwise feeling of unwell. Progress of Wound: Improving. No new complaints at this time. - Physical Exam Vital Signs Temp Pulse Resp BP 97.7 F L 82 14 119/61 05/01/18 08:42 05/01/18 08:42 05/01/18 08:42 05/01/18 08:42 General: Alert, Oriented x3, Cooperative, No apparent distress HEENT: Atraumatic Oral: Moist Mucosa Neck: Supple Lungs: Normal air movement Cardiovascular: Regular rate Abdomen: Bowel Sounds Present Extremities: No cyanosis Skin: Ulcer/ Wound Wound Measurements and Assessment WC - Nurse 1 - General Ulcer Measurement Start: 04/11/18 09:13 Freq: Status: Active Protocol: Activity Type Activity Date Activity User E-Sign Co-Sign Detail Recorded Client Recorded Date Recorded By Document 05/01/18 08:42 [id number] 05/01/18 08:44 05/01/18 08:42 Wound Center Nurse 1 [Ulcer Assessment] #1 Pilonidal -Combined with other wound No -Current Size (cm) - Length 4 -Current Size (cm) - Width 1.3 -Current Size (cm) - Depth 0.3 -Total Square Cm 5.2 -Photo Taken No -Epithelialization Medium 34-66% -Tunneling No -Undermining/Tunneling No -Circular Undermining No -Exudate Amt Medium (34-66%) -Exudate Type Serous -Wound Margin Distinct, Outline Attached -Granulation Amt Medium (34-66%) -Granulation Quality Red -Slough/Fibrin Yes -Necrosis Amt None Present (0 %) -Necrotic Tissue Type Adherent Slough -Structure Exposed None/Limited to Skin Breakdown -Texture (Halima-wound Skin Appearance) Scarring -Moisture (Halima-wound Skin Appearance No Abnormality ) Assessed -Color (Halima-wound Skin Appearance) No Abnormality Assessed -Temperature (Halima-wound Skin No Abnormality Appearance) (Pt Warm) -Tenderness on Palpation (Halima-wound Yes Skin Appearance) -Ulcer Cleansing Rinsed/ Irrigated with Saline -Foul Odor after Cleansing No -Anesthetic Used 4% Lidocaine Solution [Edema Assessment] -Lower Limb Edema Present NA - Nurse 2 - General Ulcer CM Notes Start: 04/11/18 09:13 Freq: Status: Active Protocol: Activity Type Activity Date Activity User E-Sign Co-Sign Detail Recorded Client Recorded Date Recorded By Document 05/01/18 08:51 MW [id number] 05/01/18 08:52 MW 05/01/18 08:51 Wound Center Nurse 2 [Procedure/Treatment] #1 Pilonidal -Time 08:51 -Correct Patient Yes -Correct Side, Site, Position Yes -Correct Procedure Yes -Procedure Performed Yes -Type of Procedure Debridement -Clinical Debridement Subcutaneous -Post Debridement Size (cm) - Length 4.0 -Post Debridement Size (cm) - Width 0.7 -Post Debridement Size (cm) - Depth 1.0 -Total Square Cm 2.80 -Wound/Ulcer Outcome Not Healed -Ulcer Cleansing Rinsed/ Irrigated with Saline -Foul Odor after Cleansing No -Bioengineered Tissue No -Bleeding Controlled with Pressure -Treatment Response Procedure Tolerated Well [See Physician Procedure note for Specifics] Pain Scale: 0-10 Numeric [Pain] -Is Patient Pain Free? Yes Musculoskeletal: No Muscle Wasting Neurological: Cranial nerves II-XII grossly intact Psych/Mental Status: Normal Affect Debridement Note Post-Debridement Measurements/Treatment - Nurse 2 - General Ulcer CM Notes Start: 04/11/18 09:13 Freq: Status: Active Protocol: Activity Type Activity Date Activity User E-Sign Co-Sign Detail Recorded Client Recorded Date Recorded By Document 04/11/18 09:31 MW [id number] 04/11/18 09:36 MW Document 04/18/18 10:36 MW [id number] 04/18/18 10:44 MW Document 04/24/18 09:27 CS [id number] 04/24/18 09:28 CS Document 05/01/18 08:51 MW [id number] 05/01/18 08:52 MW 04/11/18 04/18/18 04/24/18 09:31 10:36 09:27 Wound Center Nurse 2 #1 Pilonidal -Time 09:31 10:36 09:27 -Correct Patient Yes Yes Yes -Correct Side, Site, Position Yes Yes Yes -Correct Procedure Yes Yes Yes -Procedure Performed Yes Yes Yes -Type of Procedure Debridement Debridement Debridement -Clinical Debridement Subcutaneous Subcutaneous Subcutaneous -Post Debridement Size (cm) - Length 4.5 4.5 5 -Post Debridement Size (cm) - Width 1.0 1.0 0.5 -Post Debridement Size (cm) - Depth 0.7 1.0 1.5 -Total Square Cm 4.50 4.50 2.5 -Wound/Ulcer Outcome Not Healed Not Healed Not Healed -Ulcer Cleansing Rinsed/ Rinsed/ Not Cleansed Irrigated with Irrigated with Saline Saline -Foul Odor after Cleansing No No No -Bioengineered Tissue No No No -Bleeding Controlled with Pressure Pressure NA -Other TUNNEL @ 12 - 2 tunnel @ 12- 1. .8CM 7cm -Treatment Response Procedure Procedure Procedure Tolerated Well Tolerated Well Tolerated Well Pain Scale: 0-10 Numeric Is Patient Pain Free? Yes Yes Yes 05/01/18 08:51 Wound Center Nurse 2 #1 Pilonidal -Time 08:51 -Correct Patient Yes -Correct Side, Site, Position Yes -Correct Procedure Yes -Procedure Performed Yes -Type of Procedure Debridement -Clinical Debridement Subcutaneous -Post Debridement Size (cm) - Length 4.0 -Post Debridement Size (cm) - Width 0.7 -Post Debridement Size (cm) - Depth 1.0 -Total Square Cm 2.80 -Wound/Ulcer Outcome Not Healed -Ulcer Cleansing Rinsed/ Irrigated with Saline -Foul Odor after Cleansing No -Bioengineered Tissue No -Bleeding Controlled with Pressure -Other -Treatment Response Procedure Tolerated Well Pain Scale: 0-10 Numeric Is Patient Pain Free? Yes Wound debrided: Midline Buttock Wound Grade/Stage: Stage II Type of Debridement: Excisional debridement Anesthesia Used: 4% Lidocaine Solution Depth: Down to and including healthy tissue, in the subcutaneous layer Percentage of wound debrided: 100 Instrument Used: 3mm curette Tissue Removed: Slough and devitalized tissue Severity: Fat Layer Exposed Amount of bleeding with debridement: Mild Bleeding Controlled with: Pressure Patient tolerated procedure well Assessment/Plan Active Problems (Last Reviewed 12/31/17 @ 10:12 by Roopa Neil) Non-healing surgical wound (Chronic) Assessment: Nonhealing postsurgical wound. Plan: Improving. Tunnel at 12 is closed. Debridement done as documented above. Procedure was well tolerated. Continue SNAP vac until completely healed. Follow up on Sunday for change. She had regressed in the past on discontinuing the wound Vac. Increased protein intake/supplements also recommended. Follow-up with me in 1 week. Advised to call with any questions or concerns. This note was generated with [employer] dictation software. It may contain incorrect words, spelling, and punctuation that were not noted in checking the note before signing.
[2018-05-06 15:33] VITALS: BP 141/71; PULSE 98; RESP 18; TEMP 36.3
[2018-05-08 10:42] VITALS: BP 107/69; PULSE 85; RESP 14; TEMP 37.7
--- NOTE | 2018-05-08 12:19 | PCM.WC.PN ---
(1) Non-healing surgical wound Status: Chronic Current Visit: Yes Code(s): T81.89XA - Other complications of procedures, not elsewhere classified, initial encounter Type of Wound Chief Complaint: Non healing surgical wound. History of Wound: Ms. Ochoa is a 22yo in apparent stable health who presents to the wound center due to non healing post surgical wound. She had a pilonidal cyst surgery in september due to recurrent pilonidal cysyt however,since surgery, she has had problems with healing. She currently packs by herself with gauze and changes these daily. She still follows up with her primary care physician and general surgeon. She denies chills, fever or otherwise feeling of unwell. Progress of Wound: Improving. No new complaints at this time. - Physical Exam Vital Signs Temp Pulse Resp BP 99.8 F H 85 14 107/69 05/08/18 10:42 05/08/18 10:42 05/08/18 10:42 05/08/18 10:42 General: Alert, Oriented x3, Cooperative, No apparent distress HEENT: Atraumatic, Normocephalic Oral: Moist Mucosa Neck: Supple Lungs: Normal air movement Cardiovascular: Regular rate Abdomen: Non Tender Extremities: No cyanosis Skin: Ulcer/ Wound Wound Measurements and Assessment WC - Nurse 1 - General Ulcer Measurement Start: 04/11/18 09:13 Freq: Status: Active Protocol: Activity Type Activity Date Activity User E-Sign Co-Sign Detail Recorded Client Recorded Date Recorded By Document 05/06/18 15:33 DL [id number] 05/06/18 15:58 DL Document 05/08/18 10:42 [id number] 05/08/18 10:48 05/06/18 05/08/18 15:33 10:42 Wound Center Nurse 1 [Ulcer Assessment] #1 Pilonidal -Combined with other wound No -Current Size (cm) - Length 2.1 -Current Size (cm) - Width 1.7 -Current Size (cm) - Depth 0.1 -Total Square Cm 3.57 -Photo Taken No No -Epithelialization Medium 34-66% -Tunneling No -Undermining/Tunneling No -Circular Undermining No -Exudate Amt Small (1-33%) -Exudate Type Serosanguineous Sanguineous -Wound Margin Flat & Intact Distinct, Outline Attached -Granulation Amt Large (67-100%) Large (67-100%) -Granulation Quality Red Pale Red -Slough/Fibrin Yes -Necrosis Amt None Present (0 None Present (0 %) %) -Necrotic Tissue Type Adherent Slough -Structure Exposed N/A None/Limited to Skin Breakdown -Texture (Halima-wound Skin Appearance) Scarring Scarring -Moisture (Halima-wound Skin Appearance No Abnormality No Abnormality ) Assessed -Color (Halima-wound Skin Appearance) No Abnormality No Abnormality Assessed -Temperature (Halima-wound Skin No Abnormality No Abnormality Appearance) (Pt Warm) (Pt Warm) -Tenderness on Palpation (Halima-wound Yes No Skin Appearance) -Ulcer Cleansing Wound Cleanser soap -Foul Odor after Cleansing Yes No -Anesthetic Used 4% Lidocaine Solution [Edema Assessment] -Lower Limb Edema Present NA WC - Nurse 2 - General Ulcer CM Notes Start: 04/11/18 09:13 Freq: Status: Active Protocol: Activity Type Activity Date Activity User E-Sign Co-Sign Detail Recorded Client Recorded Date Recorded By Document 05/08/18 11:05 MW [id number] 05/08/18 11:09 MW 05/08/18 11:05 Wound Center Nurse 2 [Procedure/Treatment] #1 Pilonidal -Time 11:06 -Correct Patient Yes -Correct Side, Site, Position Yes -Correct Procedure Yes -Procedure Performed Yes -Type of Procedure Debridement -Clinical Debridement Subcutaneous -Post Debridement Size (cm) - Length 2.2 -Post Debridement Size (cm) - Width 1.1 -Post Debridement Size (cm) - Depth 0.8 -Total Square Cm 2.42 -Wound/Ulcer Outcome Not Healed -Ulcer Cleansing Rinsed/ Irrigated with Saline -Foul Odor after Cleansing No -Bioengineered Tissue No -Bleeding Controlled with Pressure -Treatment Response Procedure Tolerated Well [See Physician Procedure note for Specifics] Pain Scale: 0-10 Numeric [Pain] -Is Patient Pain Free? Yes Musculoskeletal: No Muscle Wasting Neurological: Cranial nerves II-XII grossly intact Psych/Mental Status: Normal Affect Debridement Note Post-Debridement Measurements/Treatment WC - Nurse 2 - General Ulcer CM Notes Start: 04/11/18 09:13 Freq: Status: Active Protocol: Activity Type Activity Date Activity User E-Sign Co-Sign Detail Recorded Client Recorded Date Recorded By Document 04/11/18 09:31 MW [id number] 04/11/18 09:36 MW Document 04/18/18 10:36 MW [id number] 04/18/18 10:44 MW Document 04/24/18 09:27 CS [id number] 04/24/18 09:28 CS Document 05/01/18 08:51 MW [id number] 05/01/18 08:52 MW Document 05/08/18 11:05 MW [id number] 05/08/18 11:09 MW 04/11/18 04/18/18 04/24/18 09:31 10:36 09:27 Wound Center Nurse 2 #1 Pilonidal -Time 09:31 10:36 09:27 -Correct Patient Yes Yes Yes -Correct Side, Site, Position Yes Yes Yes -Correct Procedure Yes Yes Yes -Procedure Performed Yes Yes Yes -Type of Procedure Debridement Debridement Debridement -Clinical Debridement Subcutaneous Subcutaneous Subcutaneous -Post Debridement Size (cm) - Length 4.5 4.5 5 -Post Debridement Size (cm) - Width 1.0 1.0 0.5 -Post Debridement Size (cm) - Depth 0.7 1.0 1.5 -Total Square Cm 4.50 4.50 2.5 -Wound/Ulcer Outcome Not Healed Not Healed Not Healed -Ulcer Cleansing Rinsed/ Rinsed/ Not Cleansed Irrigated with Irrigated with Saline Saline -Foul Odor after Cleansing No No No -Bioengineered Tissue No No No -Bleeding Controlled with Pressure Pressure NA -Other TUNNEL @ 12 - 2 tunnel @ 12- 1. .8CM 7cm -Treatment Response Procedure Procedure Procedure Tolerated Well Tolerated Well Tolerated Well Pain Scale: 0-10 Numeric Is Patient Pain Free? Yes Yes Yes 05/01/18 05/08/18 08:51 11:05 Wound Center Nurse 2 #1 Pilonidal -Time 08:51 11:06 -Correct Patient Yes Yes -Correct Side, Site, Position Yes Yes -Correct Procedure Yes Yes -Procedure Performed Yes Yes -Type of Procedure Debridement Debridement -Clinical Debridement Subcutaneous Subcutaneous -Post Debridement Size (cm) - Length 4.0 2.2 -Post Debridement Size (cm) - Width 0.7 1.1 -Post Debridement Size (cm) - Depth 1.0 0.8 -Total Square Cm 2.80 2.42 -Wound/Ulcer Outcome Not Healed Not Healed -Ulcer Cleansing Rinsed/ Rinsed/ Irrigated with Irrigated with Saline Saline -Foul Odor after Cleansing No No -Bioengineered Tissue No No -Bleeding Controlled with Pressure Pressure -Other -Treatment Response Procedure Procedure Tolerated Well Tolerated Well Pain Scale: 0-10 Numeric Is Patient Pain Free? Yes Yes Wound debrided: Midline Buttocks Wound Grade/Stage: Stage III Type of Debridement: Excisional debridement Anesthesia Used: 4% Lidocaine Solution Depth: Down to and including healthy tissue, in the subcutaneous layer Percentage of wound debrided: 100 Instrument Used: 3mm curette Tissue Removed: Slough and devitalized Severity: Fat Layer Exposed Amount of bleeding with debridement: Mild Bleeding Controlled with: Pressure Patient tolerated procedure well Assessment/Plan Active Problems (Last Reviewed 12/31/17 @ 10:12 by Roopa Neil) Non-healing surgical wound (Chronic) Assessment: Nonhealing postsurgical wound. Plan: Continues to show good improvement. Tunnel remains closed. Debridement done as documented above. Procedure was well tolerated. Continue SNAP vac until completely healed. Follow up on Sunday for change. She had regressed in the past on discontinuing the wound Vac. Increased protein intake/supplements also recommended. Follow-up with me in 2 weeks. Advised to call with any questions or concerns. This note was generated with [employer] dictation software. It may contain incorrect words, spelling, and punctuation that were not noted in checking the note before signing.
--- NOTE | 2018-05-08 12:24 | PN.PCM_ITS ---
(1) Non-healing surgical wound Status: Chronic Current Visit: Yes Code(s): T81.89XA - Other complications of procedures, not elsewhere classified, initial encounter Type of Wound Chief Complaint: Non healing surgical wound. History of Wound: Ms. Ochoa is a 22yo in apparent stable health who presents to the wound center due to non healing post surgical wound. She had a pilonidal cyst surgery in september due to recurrent pilonidal cysyt however,since surgery, she has had problems with healing. She currently packs by herself with gauze and changes these daily. She still follows up with her primary care physician and general surgeon. She denies chills, fever or otherwise feeling of unwell. Progress of Wound: Improving. No new complaints at this time. - Physical Exam Vital Signs Temp Pulse Resp BP 99.8 F H 85 14 107/69 05/08/18 10:42 05/08/18 10:42 05/08/18 10:42 05/08/18 10:42 General: Alert, Oriented x3, Cooperative, No apparent distress HEENT: Atraumatic, Normocephalic Oral: Moist Mucosa Neck: Supple Lungs: Normal air movement Cardiovascular: Regular rate Abdomen: Non Tender Extremities: No cyanosis Skin: Ulcer/ Wound Wound Measurements and Assessment WC - Nurse 1 - General Ulcer Measurement Start: 04/11/18 09:13 Freq: Status: Active Protocol: Activity Type Activity Date Activity User E-Sign Co-Sign Detail Recorded Client Recorded Date Recorded By Document 05/06/18 15:33 DL [id number] 05/06/18 15:58 DL Document 05/08/18 10:42 [id number] 05/08/18 10:48 05/06/18 05/08/18 15:33 10:42 Wound Center Nurse 1 [Ulcer Assessment] #1 Pilonidal -Combined with other wound No -Current Size (cm) - Length 2.1 -Current Size (cm) - Width 1.7 -Current Size (cm) - Depth 0.1 -Total Square Cm 3.57 -Photo Taken No No -Epithelialization Medium 34-66% -Tunneling No -Undermining/Tunneling No -Circular Undermining No -Exudate Amt Small (1-33%) -Exudate Type Serosanguineous Sanguineous -Wound Margin Flat & Intact Distinct, Outline Attached -Granulation Amt Large (67-100%) Large (67-100%) -Granulation Quality Red Pale Red -Slough/Fibrin Yes -Necrosis Amt None Present (0 None Present (0 %) %) -Necrotic Tissue Type Adherent Slough -Structure Exposed N/A None/Limited to Skin Breakdown -Texture (Halima-wound Skin Appearance) Scarring Scarring -Moisture (Halima-wound Skin Appearance No Abnormality No Abnormality ) Assessed -Color (Halima-wound Skin Appearance) No Abnormality No Abnormality Assessed -Temperature (Halima-wound Skin No Abnormality No Abnormality Appearance) (Pt Warm) (Pt Warm) -Tenderness on Palpation (Halima-wound Yes No Skin Appearance) -Ulcer Cleansing Wound Cleanser soap -Foul Odor after Cleansing Yes No -Anesthetic Used 4% Lidocaine Solution [Edema Assessment] -Lower Limb Edema Present NA WC - Nurse 2 - General Ulcer CM Notes Start: 04/11/18 09:13 Freq: Status: Active Protocol: Activity Type Activity Date Activity User E-Sign Co-Sign Detail Recorded Client Recorded Date Recorded By Document 05/08/18 11:05 MW [id number] 05/08/18 11:09 MW 05/08/18 11:05 Wound Center Nurse 2 [Procedure/Treatment] #1 Pilonidal -Time 11:06 -Correct Patient Yes -Correct Side, Site, Position Yes -Correct Procedure Yes -Procedure Performed Yes -Type of Procedure Debridement -Clinical Debridement Subcutaneous -Post Debridement Size (cm) - Length 2.2 -Post Debridement Size (cm) - Width 1.1 -Post Debridement Size (cm) - Depth 0.8 -Total Square Cm 2.42 -Wound/Ulcer Outcome Not Healed -Ulcer Cleansing Rinsed/ Irrigated with Saline -Foul Odor after Cleansing No -Bioengineered Tissue No -Bleeding Controlled with Pressure -Treatment Response Procedure Tolerated Well [See Physician Procedure note for Specifics] Pain Scale: 0-10 Numeric [Pain] -Is Patient Pain Free? Yes Musculoskeletal: No Muscle Wasting Neurological: Cranial nerves II-XII grossly intact Psych/Mental Status: Normal Affect Debridement Note Post-Debridement Measurements/Treatment WC - Nurse 2 - General Ulcer CM Notes Start: 04/11/18 09:13 Freq: Status: Active Protocol: Activity Type Activity Date Activity User E-Sign Co-Sign Detail Recorded Client Recorded Date Recorded By Document 04/11/18 09:31 MW [id number] 04/11/18 09:36 MW Document 04/18/18 10:36 MW [id number] 04/18/18 10:44 MW Document 04/24/18 09:27 CS [id number] 04/24/18 09:28 CS Document 05/01/18 08:51 MW [id number] 05/01/18 08:52 MW Document 05/08/18 11:05 MW [id number] 05/08/18 11:09 MW 04/11/18 04/18/18 04/24/18 09:31 10:36 09:27 Wound Center Nurse 2 #1 Pilonidal -Time 09:31 10:36 09:27 -Correct Patient Yes Yes Yes -Correct Side, Site, Position Yes Yes Yes -Correct Procedure Yes Yes Yes -Procedure Performed Yes Yes Yes -Type of Procedure Debridement Debridement Debridement -Clinical Debridement Subcutaneous Subcutaneous Subcutaneous -Post Debridement Size (cm) - Length 4.5 4.5 5 -Post Debridement Size (cm) - Width 1.0 1.0 0.5 -Post Debridement Size (cm) - Depth 0.7 1.0 1.5 -Total Square Cm 4.50 4.50 2.5 -Wound/Ulcer Outcome Not Healed Not Healed Not Healed -Ulcer Cleansing Rinsed/ Rinsed/ Not Cleansed Irrigated with Irrigated with Saline Saline -Foul Odor after Cleansing No No No -Bioengineered Tissue No No No -Bleeding Controlled with Pressure Pressure NA -Other TUNNEL @ 12 - 2 tunnel @ 12- 1. .8CM 7cm -Treatment Response Procedure Procedure Procedure Tolerated Well Tolerated Well Tolerated Well Pain Scale: 0-10 Numeric Is Patient Pain Free? Yes Yes Yes 05/01/18 05/08/18 08:51 11:05 Wound Center Nurse 2 #1 Pilonidal -Time 08:51 11:06 -Correct Patient Yes Yes -Correct Side, Site, Position Yes Yes -Correct Procedure Yes Yes -Procedure Performed Yes Yes -Type of Procedure Debridement Debridement -Clinical Debridement Subcutaneous Subcutaneous -Post Debridement Size (cm) - Length 4.0 2.2 -Post Debridement Size (cm) - Width 0.7 1.1 -Post Debridement Size (cm) - Depth 1.0 0.8 -Total Square Cm 2.80 2.42 -Wound/Ulcer Outcome Not Healed Not Healed -Ulcer Cleansing Rinsed/ Rinsed/ Irrigated with Irrigated with Saline Saline -Foul Odor after Cleansing No No -Bioengineered Tissue No No -Bleeding Controlled with Pressure Pressure -Other -Treatment Response Procedure Procedure Tolerated Well Tolerated Well Pain Scale: 0-10 Numeric Is Patient Pain Free? Yes Yes Wound debrided: Midline Buttocks Wound Grade/Stage: Stage III Type of Debridement: Excisional debridement Anesthesia Used: 4% Lidocaine Solution Depth: Down to and including healthy tissue, in the subcutaneous layer Percentage of wound debrided: 100 Instrument Used: 3mm curette Tissue Removed: Slough and devitalized Severity: Fat Layer Exposed Amount of bleeding with debridement: Mild Bleeding Controlled with: Pressure Patient tolerated procedure well Assessment/Plan Active Problems (Last Reviewed 12/31/17 @ 10:12 by Roopa Neil) Non-healing surgical wound (Chronic) Assessment: Nonhealing postsurgical wound. Plan: Continues to show good improvement. Tunnel remains closed. Debridement done as documented above. Procedure was well tolerated. Continue SNAP vac until completely healed. Follow up on Sunday for change. She had regressed in the past on discontinuing the wound Vac. Increased protein intake/supplements also recommended. Follow-up with me in 2 weeks. Advised to call with any questions or concerns. This note was generated with [employer] dictation software. It may contain incorrect words, spelling, and punctuation that were not noted in checking the note before signing.
== END 2018-05-10 23:59 ==
LOC: WC 10:30
PROVIDERS: Family Provider Family Medicine; PCP Family Medicine; Visit Provider Internal Medicine
DX: L05.91 Pilonidal cyst without abscess (principal); T81.89XA Other complications of procedures, not elsewhere classified, initial encounter; Y83.8 Other surgical procedures as the cause of abnormal reaction of the patient, or of later complication, without mention of misadventure at the time of the procedure
CPT/HCPCS: 11042; 97607; 99211; 99213; G0463

== ENCOUNTER 2018-06-10 10:30 | Outpatient (RCR) | payer SELFPAY ==
[2018-05-11 01:06] VITALS: BP 107/69; PULSE 85; RESP 14; TEMP 37.7
[2018-05-13 12:39] VITALS: BP 131/67; PULSE 78; RESP 18; TEMP 37.3
[2018-05-17 10:03] VITALS: BP 134/77; PULSE 83; RESP 16; TEMP 37
[2018-05-20 11:22] VITALS: BP 126/67; PULSE 68; RESP 16; TEMP 36.5
[2018-05-24 10:58] VITALS: BP 124/65; PULSE 79; RESP 18; TEMP 37.2
--- NOTE | 2018-05-24 17:50 | PCM.WC.PN ---
(1) Non-healing surgical wound Status: Chronic Current Visit: Yes Code(s): T81.89XA - Other complications of procedures, not elsewhere classified, initial encounter Type of Wound Date of Service: 05/24/18 Chief Complaint: Non healing surgical wound. History of Wound: Ms. Ochoa is a 22yo in apparent stable health who presents to the wound center due to non healing post surgical wound. She had a pilonidal cyst surgery in september due to recurrent pilonidal cysyt however,since surgery, she has had problems with healing. She currently packs by herself with gauze and changes these daily. She still follows up with her primary care physician and general surgeon. She denies chills, fever or otherwise feeling of unwell. Progress of Wound: Improving. This is a courtesy visit today since she has not been able to make her appointments with Dr. Baker due to her work schedule. - Physical Exam Vital Signs Temp Pulse Resp BP 98.9 F 79 18 124/65 H 05/24/18 10:58 05/24/18 10:58 05/24/18 10:58 05/24/18 10:58 General: Alert, Oriented x3, Cooperative HEENT: Atraumatic Oral: Moist Mucosa Extremities: No edema Skin: Ulcer/ Wound - pilonidal area Wound Measurements and Assessment WC - Nurse 1 - General Ulcer Measurement Start: 05/13/18 12:39 Freq: Status: Active Protocol: Activity Type Activity Date Activity User E-Sign Co-Sign Detail Recorded Client Recorded Date Recorded By Document 05/24/18 10:58 [id number] 05/24/18 11:04 05/24/18 10:58 Wound Center Nurse 1 [Ulcer Assessment] #1 Pilonidal -Combined with other wound No -Current Size (cm) - Length 1.1 -Current Size (cm) - Width 0.5 -Current Size (cm) - Depth 0.1 -Total Square Cm 0.55 -Photo Taken No -Tunneling No -Undermining/Tunneling No -Circular Undermining No -Exudate Amt Small (1-33%) -Exudate Type Serosanguineous -Wound Margin Distinct, Outline Attached -Granulation Amt Medium (34-66%) -Granulation Quality [place] -Slough/Fibrin Yes -Necrosis Amt Small (1-33%) -Necrotic Tissue Type Adherent Slough -Structure Exposed N/A -Texture (Halima-wound Skin Appearance) Assessed Scarring -Moisture (Halima-wound Skin Appearance Assessed ) -Color (Halima-wound Skin Appearance) Assessed -Temperature (Halima-wound Skin No Abnormality Appearance) (Pt Warm) -Tenderness on Palpation (Halima-wound No Skin Appearance) -Ulcer Cleansing Rinsed/ Irrigated with Saline -Foul Odor after Cleansing No -Anesthetic Used 5% Lidocaine Gel - Nurse 2 - General Ulcer CM Notes Start: 05/13/18 12:39 Freq: Status: Active Protocol: Activity Type Activity Date Activity User E-Sign Co-Sign Detail Recorded Client Recorded Date Recorded By Document 05/24/18 11:35 [email or web address] [id number] 05/24/18 11:37 VENKAT 05/24/18 11:35 Wound Center Nurse 2 [Procedure/Treatment] -Time 11:36 -Correct Patient Yes -Correct Side, Site, Position Yes -Correct Procedure Yes -Procedure Performed Yes -Type of Procedure Debridement -Clinical Debridement Subcutaneous -Post Debridement Size (cm) - Length 1.0 -Post Debridement Size (cm) - Width 0.7 -Post Debridement Size (cm) - Depth 0.1 -Total Square Cm 0.70 -Wound/Ulcer Outcome Not Healed -Ulcer Cleansing Rinsed/ Irrigated with Saline -Foul Odor after Cleansing No -Bioengineered Tissue No -Topical Lidocaine (%) 4 -Lidocaine (ml) 5 -Bleeding Controlled with NA -Offloading No -Treatment Response Procedure Tolerated Well [See Physician Procedure note for Specifics] Pain Scale: 0-10 Numeric [Pain] -Is Patient Pain Free? Yes Musculoskeletal: No Tenderness to Palpation of Joints or Extremities Neurological: Neuro grossly intact Psych/Mental Status: Normal Affect, Appropriate Debridement Note Post-Debridement Measurements/Treatment WC - Nurse 2 - General Ulcer CM Notes Start: 05/13/18 12:39 Freq: Status: Active Protocol: Activity Type Activity Date Activity User E-Sign Co-Sign Detail Recorded Client Recorded Date Recorded By Document 05/24/18 11:35 [id number] 05/24/18 11:37 05/24/18 11:35 Wound Center Nurse 2 #1 Pilonidal -Time 11:36 -Correct Patient Yes -Correct Side, Site, Position Yes -Correct Procedure Yes -Procedure Performed Yes -Type of Procedure Debridement -Clinical Debridement Subcutaneous -Post Debridement Size (cm) - Length 1.0 -Post Debridement Size (cm) - Width 0.7 -Post Debridement Size (cm) - Depth 0.1 -Total Square Cm 0.70 -Wound/Ulcer Outcome Not Healed -Ulcer Cleansing Rinsed/ Irrigated with Saline -Foul Odor after Cleansing No -Bioengineered Tissue No -Topical Lidocaine (%) 4 -Lidocaine (ml) 5 -Bleeding Controlled with NA -Offloading No -Treatment Response Procedure Tolerated Well Pain Scale: 0-10 Numeric Is Patient Pain Free? Yes Wound debrided: coccyx Type of Debridement: Excisional debridement Anesthesia Used: 4% Lidocaine Solution Depth: Down to and including healthy tissue, in the subcutaneous layer Percentage of wound debrided: 100 Instrument Used: 3mm curette Tissue Removed: Subcutaneous tissue and small amount of slough Severity: Limited To Skin Breakdown Amount of bleeding with debridement: Mild Bleeding Controlled with: Pressure Patient tolerated procedure well Assessment/Plan Active Problems (Last Reviewed 12/31/17 @ 10:12 by Roopa Neil) Non-healing surgical wound (Chronic) Pilonidal cyst without abscess (Acute) Assessment: Nonhealing postsurgical wound. Plan: Continues to show good improvement. Tunnel remains closed. Debridement done as documented above. Procedure was well tolerated. Will discontinue SNAP vac today and start Sindhu daily dressing changes due to the small, shallow opening that remains. Increased protein intake/supplements also recommended. Follow-up with Dr. Baker in 1 week. Advised to call with any questions or concerns. This note was generated with [employer] software. It may contain incorrect words, spelling, and punctuation that were not noted in checking the note before signing. Code Visit 111xxx-113xx: [id number] Delores subq tissue 20 sq cm/<
--- NOTE | 2018-05-24 17:55 | PN.PCM_ITS ---
(1) Non-healing surgical wound Status: Chronic Current Visit: Yes Code(s): T81.89XA - Other complications of procedures, not elsewhere classified, initial encounter Type of Wound Date of Service: 05/24/18 Chief Complaint: Non healing surgical wound. History of Wound: Ms. Ochoa is a 22yo in apparent stable health who presents to the wound center due to non healing post surgical wound. She had a pilonidal cyst surgery in september due to recurrent pilonidal cysyt however,since surgery, she has had problems with healing. She currently packs by herself with gauze and changes these daily. She still follows up with her primary care physician and general surgeon. She denies chills, fever or otherwise feeling of unwell. Progress of Wound: Improving. This is a courtesy visit today since she has not been able to make her appointments with Dr. Baker due to her work schedule. - Physical Exam Vital Signs Temp Pulse Resp BP 98.9 F 79 18 124/65 H 05/24/18 10:58 05/24/18 10:58 05/24/18 10:58 05/24/18 10:58 General: Alert, Oriented x3, Cooperative HEENT: Atraumatic Oral: Moist Mucosa Extremities: No edema Skin: Ulcer/ Wound - pilonidal area Wound Measurements and Assessment WC - Nurse 1 - General Ulcer Measurement Start: 05/13/18 12:39 Freq: Status: Active Protocol: Activity Type Activity Date Activity User E-Sign Co-Sign Detail Recorded Client Recorded Date Recorded By Document 05/24/18 10:58 [id number] 05/24/18 11:04 05/24/18 10:58 Wound Center Nurse 1 [Ulcer Assessment] #1 Pilonidal -Combined with other wound No -Current Size (cm) - Length 1.1 -Current Size (cm) - Width 0.5 -Current Size (cm) - Depth 0.1 -Total Square Cm 0.55 -Photo Taken No -Tunneling No -Undermining/Tunneling No -Circular Undermining No -Exudate Amt Small (1-33%) -Exudate Type Serosanguineous -Wound Margin Distinct, Outline Attached -Granulation Amt Medium (34-66%) -Granulation Quality [place] -Slough/Fibrin Yes -Necrosis Amt Small (1-33%) -Necrotic Tissue Type Adherent Slough -Structure Exposed N/A -Texture (Halima-wound Skin Appearance) Assessed Scarring -Moisture (Halima-wound Skin Appearance Assessed ) -Color (Halima-wound Skin Appearance) Assessed -Temperature (Halima-wound Skin No Abnormality Appearance) (Pt Warm) -Tenderness on Palpation (Halima-wound No Skin Appearance) -Ulcer Cleansing Rinsed/ Irrigated with Saline -Foul Odor after Cleansing No -Anesthetic Used 5% Lidocaine Gel - Nurse 2 - General Ulcer CM Notes Start: 05/13/18 12:39 Freq: Status: Active Protocol: Activity Type Activity Date Activity User E-Sign Co-Sign Detail Recorded Client Recorded Date Recorded By Document 05/24/18 11:35 [email or web address] [id number] 05/24/18 11:37 VENKAT 05/24/18 11:35 Wound Center Nurse 2 [Procedure/Treatment] -Time 11:36 -Correct Patient Yes -Correct Side, Site, Position Yes -Correct Procedure Yes -Procedure Performed Yes -Type of Procedure Debridement -Clinical Debridement Subcutaneous -Post Debridement Size (cm) - Length 1.0 -Post Debridement Size (cm) - Width 0.7 -Post Debridement Size (cm) - Depth 0.1 -Total Square Cm 0.70 -Wound/Ulcer Outcome Not Healed -Ulcer Cleansing Rinsed/ Irrigated with Saline -Foul Odor after Cleansing No -Bioengineered Tissue No -Topical Lidocaine (%) 4 -Lidocaine (ml) 5 -Bleeding Controlled with NA -Offloading No -Treatment Response Procedure Tolerated Well [See Physician Procedure note for Specifics] Pain Scale: 0-10 Numeric [Pain] -Is Patient Pain Free? Yes Musculoskeletal: No Tenderness to Palpation of Joints or Extremities Neurological: Neuro grossly intact Psych/Mental Status: Normal Affect, Appropriate Debridement Note Post-Debridement Measurements/Treatment WC - Nurse 2 - General Ulcer CM Notes Start: 05/13/18 12:39 Freq: Status: Active Protocol: Activity Type Activity Date Activity User E-Sign Co-Sign Detail Recorded Client Recorded Date Recorded By Document 05/24/18 11:35 [id number] 05/24/18 11:37 05/24/18 11:35 Wound Center Nurse 2 #1 Pilonidal -Time 11:36 -Correct Patient Yes -Correct Side, Site, Position Yes -Correct Procedure Yes -Procedure Performed Yes -Type of Procedure Debridement -Clinical Debridement Subcutaneous -Post Debridement Size (cm) - Length 1.0 -Post Debridement Size (cm) - Width 0.7 -Post Debridement Size (cm) - Depth 0.1 -Total Square Cm 0.70 -Wound/Ulcer Outcome Not Healed -Ulcer Cleansing Rinsed/ Irrigated with Saline -Foul Odor after Cleansing No -Bioengineered Tissue No -Topical Lidocaine (%) 4 -Lidocaine (ml) 5 -Bleeding Controlled with NA -Offloading No -Treatment Response Procedure Tolerated Well Pain Scale: 0-10 Numeric Is Patient Pain Free? Yes Wound debrided: coccyx Type of Debridement: Excisional debridement Anesthesia Used: 4% Lidocaine Solution Depth: Down to and including healthy tissue, in the subcutaneous layer Percentage of wound debrided: 100 Instrument Used: 3mm curette Tissue Removed: Subcutaneous tissue and small amount of slough Severity: Limited To Skin Breakdown Amount of bleeding with debridement: Mild Bleeding Controlled with: Pressure Patient tolerated procedure well Assessment/Plan Active Problems (Last Reviewed 12/31/17 @ 10:12 by Roopa Neil) Non-healing surgical wound (Chronic) Pilonidal cyst without abscess (Acute) Assessment: Nonhealing postsurgical wound. Plan: Continues to show good improvement. Tunnel remains closed. Debridement done as documented above. Procedure was well tolerated. Will discontinue SNAP vac today and start Sindhu daily dressing changes due to the small, shallow opening that remains. Increased protein intake/supplements also recommended. Follow-up with Dr. Baker in 1 week. Advised to call with any questions or concerns. This note was generated with [employer] software. It may contain incorrect words, spelling, and punctuation that were not noted in checking the note before signing. Code Visit 111xxx-113xx: [id number] Delores subq tissue 20 sq cm/<
[2018-05-30 10:05] VITALS: BP 135/69; PULSE 103; RESP 18; TEMP 37.1
--- NOTE | 2018-05-30 11:08 | PCM.WC.PN ---
(1) Non-healing surgical wound Status: Chronic Current Visit: Yes Code(s): T81.89XA - Other complications of procedures, not elsewhere classified, initial encounter Type of Wound Chief Complaint: Non healing surgical wound. History of Wound: Ms. Ochoa is a 22yo in apparent stable health who presents to the wound center due to non healing post surgical wound. She had a pilonidal cyst surgery in september due to recurrent pilonidal cysyt however,since surgery, she has had problems with healing. She currently packs by herself with gauze and changes these daily. She still follows up with her primary care physician and general surgeon. She denies chills, fever or otherwise feeling of unwell. Progress of Wound: Had Snap Dced last week and wound has worsened. - Physical Exam Vital Signs Temp Pulse Resp BP 98.7 F 103 H 18 135/69 H 05/30/18 10:05 05/30/18 10:05 05/30/18 10:05 05/30/18 10:05 General: Alert, Oriented x3, Cooperative, No apparent distress HEENT: Atraumatic, Normocephalic Oral: Moist Mucosa Neck: Supple Lungs: Normal air movement Abdomen: Non Tender Extremities: No cyanosis Skin: Ulcer/ Wound Wound Measurements and Assessment WC - Nurse 1 - General Ulcer Measurement Start: 05/13/18 12:39 Freq: Status: Active Protocol: Activity Type Activity Date Activity User E-Sign Co-Sign Detail Recorded Client Recorded Date Recorded By Document 05/30/18 10:05 DL [id number] 05/30/18 10:11 DL 05/30/18 10:05 Wound Center Nurse 1 [Ulcer Assessment] #1 Pilonidal -Current Size (cm) - Length 1.2 -Current Size (cm) - Width 0.6 -Current Size (cm) - Depth 0.4 -Total Square Cm 0.72 -Photo Taken No -Exudate Amt Small (1-33%) -Exudate Type Serosanguineous -Wound Margin Distinct, Outline Attached -Granulation Amt Large (67-100%) -Granulation Quality Red -Necrosis Amt None Present (0 %) -Structure Exposed N/A -Texture (Halima-wound Skin Appearance) Scarring -Moisture (Halima-wound Skin Appearance No Abnormality ) -Color (Halima-wound Skin Appearance) No Abnormality -Temperature (Halima-wound Skin No Abnormality Appearance) (Pt Warm) -Ulcer Cleansing Rinsed/ Irrigated with Saline -Foul Odor after Cleansing No -Anesthetic Used 5% Lidocaine Gel WC - Nurse 2 - General Ulcer CM Notes Start: 05/13/18 12:39 Freq: Status: Active Protocol: Activity Type Activity Date Activity User E-Sign Co-Sign Detail Recorded Client Recorded Date Recorded By Document 05/30/18 10:35 MW [id number] 05/30/18 10:37 MW 05/30/18 10:35 Wound Center Nurse 2 [Procedure/Treatment] -Time 10:35 -Correct Patient Yes -Correct Side, Site, Position Yes -Correct Procedure Yes -Procedure Performed Yes -Type of Procedure Debridement -Clinical Debridement Subcutaneous -Post Debridement Size (cm) - Length 1.5 -Post Debridement Size (cm) - Width 0.6 -Post Debridement Size (cm) - Depth 0.5 -Total Square Cm 0.90 -Wound/Ulcer Outcome Not Healed -Ulcer Cleansing Rinsed/ Irrigated with Saline -Foul Odor after Cleansing No -Bioengineered Tissue No -Bleeding Controlled with Pressure -Offloading No -Treatment Response Procedure Tolerated Well [See Physician Procedure note for Specifics] Pain Scale: 0-10 Numeric [Pain] -Is Patient Pain Free? Yes Musculoskeletal: No Muscle Wasting Neurological: Cranial nerves II-XII grossly intact Psych/Mental Status: Normal Affect Debridement Note Post-Debridement Measurements/Treatment - Nurse 2 - General Ulcer CM Notes Start: 05/13/18 12:39 Freq: Status: Active Protocol: Activity Type Activity Date Activity User E-Sign Co-Sign Detail Recorded Client Recorded Date Recorded By Document 05/24/18 11:35 [id number] 05/24/18 11:37 Document 05/30/18 10:35 MW [id number] 05/30/18 10:37 MW 05/24/18 05/30/18 11:35 10:35 Wound Center Nurse 2 #1 Pilonidal -Time 11:36 10:35 -Correct Patient Yes Yes -Correct Side, Site, Position Yes Yes -Correct Procedure Yes Yes -Procedure Performed Yes Yes -Type of Procedure Debridement Debridement -Clinical Debridement Subcutaneous Subcutaneous -Post Debridement Size (cm) - Length 1.0 1.5 -Post Debridement Size (cm) - Width 0.7 0.6 -Post Debridement Size (cm) - Depth 0.1 0.5 -Total Square Cm 0.70 0.90 -Wound/Ulcer Outcome Not Healed Not Healed -Ulcer Cleansing Rinsed/ Rinsed/ Irrigated with Irrigated with Saline Saline -Foul Odor after Cleansing No No -Bioengineered Tissue No No -Topical Lidocaine (%) 4 -Lidocaine (ml) 5 -Bleeding Controlled with NA Pressure -Offloading No No -Treatment Response Procedure Procedure Tolerated Well Tolerated Well Pain Scale: 0-10 Numeric Is Patient Pain Free? Yes Yes Wound debrided: Midline Buttock Wound Grade/Stage: Stage II Type of Debridement: Excisional debridement Anesthesia Used: 4% Lidocaine Solution Depth: Down to and including healthy tissue, in the subcutaneous layer Percentage of wound debrided: 100 Instrument Used: 3mm curette Tissue Removed: Slough and devitalized tissue Severity: Fat Layer Exposed Amount of bleeding with debridement: Mild Bleeding Controlled with: Pressure Patient tolerated procedure well Assessment/Plan Active Problems (Last Reviewed 12/31/17 @ 10:12 by Roopa Neil) Non-healing surgical wound (Chronic) Pilonidal cyst without abscess (Acute) Assessment: Nonhealing postsurgical wound. Plan: Wound has worsened. Largely due to location/ sheering. Without a Vac, this is expected. Had similar experience when [employer] Vac was dced before the SNAP was started. Restart Snap Vac and continue untill the wound is completely closed. Due to the holiday, will continue for a week. Increased protein intake recommended. Advised to call with any questions or concerns. Follow up in 1 week. This note was generated with [employer] software. It may contain incorrect words, spelling, and punctuation that were not noted in checking the note before signing.
--- NOTE | 2018-05-30 11:12 | PN.PCM_ITS ---
(1) Non-healing surgical wound Status: Chronic Current Visit: Yes Code(s): T81.89XA - Other complications of procedures, not elsewhere classified, initial encounter Type of Wound Chief Complaint: Non healing surgical wound. History of Wound: Ms. Ochoa is a 22yo in apparent stable health who presents to the wound center due to non healing post surgical wound. She had a pilonidal cyst surgery in september due to recurrent pilonidal cysyt however,since surgery, she has had problems with healing. She currently packs by herself with gauze and changes these daily. She still follows up with her primary care physician and general surgeon. She denies chills, fever or otherwise feeling of unwell. Progress of Wound: Had Snap Dced last week and wound has worsened. - Physical Exam Vital Signs Temp Pulse Resp BP 98.7 F 103 H 18 135/69 H 05/30/18 10:05 05/30/18 10:05 05/30/18 10:05 05/30/18 10:05 General: Alert, Oriented x3, Cooperative, No apparent distress HEENT: Atraumatic, Normocephalic Oral: Moist Mucosa Neck: Supple Lungs: Normal air movement Abdomen: Non Tender Extremities: No cyanosis Skin: Ulcer/ Wound Wound Measurements and Assessment WC - Nurse 1 - General Ulcer Measurement Start: 05/13/18 12:39 Freq: Status: Active Protocol: Activity Type Activity Date Activity User E-Sign Co-Sign Detail Recorded Client Recorded Date Recorded By Document 05/30/18 10:05 DL [id number] 05/30/18 10:11 DL 05/30/18 10:05 Wound Center Nurse 1 [Ulcer Assessment] #1 Pilonidal -Current Size (cm) - Length 1.2 -Current Size (cm) - Width 0.6 -Current Size (cm) - Depth 0.4 -Total Square Cm 0.72 -Photo Taken No -Exudate Amt Small (1-33%) -Exudate Type Serosanguineous -Wound Margin Distinct, Outline Attached -Granulation Amt Large (67-100%) -Granulation Quality Red -Necrosis Amt None Present (0 %) -Structure Exposed N/A -Texture (Halima-wound Skin Appearance) Scarring -Moisture (Halima-wound Skin Appearance No Abnormality ) -Color (Halima-wound Skin Appearance) No Abnormality -Temperature (Halima-wound Skin No Abnormality Appearance) (Pt Warm) -Ulcer Cleansing Rinsed/ Irrigated with Saline -Foul Odor after Cleansing No -Anesthetic Used 5% Lidocaine Gel WC - Nurse 2 - General Ulcer CM Notes Start: 05/13/18 12:39 Freq: Status: Active Protocol: Activity Type Activity Date Activity User E-Sign Co-Sign Detail Recorded Client Recorded Date Recorded By Document 05/30/18 10:35 MW [id number] 05/30/18 10:37 MW 05/30/18 10:35 Wound Center Nurse 2 [Procedure/Treatment] -Time 10:35 -Correct Patient Yes -Correct Side, Site, Position Yes -Correct Procedure Yes -Procedure Performed Yes -Type of Procedure Debridement -Clinical Debridement Subcutaneous -Post Debridement Size (cm) - Length 1.5 -Post Debridement Size (cm) - Width 0.6 -Post Debridement Size (cm) - Depth 0.5 -Total Square Cm 0.90 -Wound/Ulcer Outcome Not Healed -Ulcer Cleansing Rinsed/ Irrigated with Saline -Foul Odor after Cleansing No -Bioengineered Tissue No -Bleeding Controlled with Pressure -Offloading No -Treatment Response Procedure Tolerated Well [See Physician Procedure note for Specifics] Pain Scale: 0-10 Numeric [Pain] -Is Patient Pain Free? Yes Musculoskeletal: No Muscle Wasting Neurological: Cranial nerves II-XII grossly intact Psych/Mental Status: Normal Affect Debridement Note Post-Debridement Measurements/Treatment - Nurse 2 - General Ulcer CM Notes Start: 05/13/18 12:39 Freq: Status: Active Protocol: Activity Type Activity Date Activity User E-Sign Co-Sign Detail Recorded Client Recorded Date Recorded By Document 05/24/18 11:35 [id number] 05/24/18 11:37 Document 05/30/18 10:35 MW [id number] 05/30/18 10:37 MW 05/24/18 05/30/18 11:35 10:35 Wound Center Nurse 2 #1 Pilonidal -Time 11:36 10:35 -Correct Patient Yes Yes -Correct Side, Site, Position Yes Yes -Correct Procedure Yes Yes -Procedure Performed Yes Yes -Type of Procedure Debridement Debridement -Clinical Debridement Subcutaneous Subcutaneous -Post Debridement Size (cm) - Length 1.0 1.5 -Post Debridement Size (cm) - Width 0.7 0.6 -Post Debridement Size (cm) - Depth 0.1 0.5 -Total Square Cm 0.70 0.90 -Wound/Ulcer Outcome Not Healed Not Healed -Ulcer Cleansing Rinsed/ Rinsed/ Irrigated with Irrigated with Saline Saline -Foul Odor after Cleansing No No -Bioengineered Tissue No No -Topical Lidocaine (%) 4 -Lidocaine (ml) 5 -Bleeding Controlled with NA Pressure -Offloading No No -Treatment Response Procedure Procedure Tolerated Well Tolerated Well Pain Scale: 0-10 Numeric Is Patient Pain Free? Yes Yes Wound debrided: Midline Buttock Wound Grade/Stage: Stage II Type of Debridement: Excisional debridement Anesthesia Used: 4% Lidocaine Solution Depth: Down to and including healthy tissue, in the subcutaneous layer Percentage of wound debrided: 100 Instrument Used: 3mm curette Tissue Removed: Slough and devitalized tissue Severity: Fat Layer Exposed Amount of bleeding with debridement: Mild Bleeding Controlled with: Pressure Patient tolerated procedure well Assessment/Plan Active Problems (Last Reviewed 12/31/17 @ 10:12 by Roopa Neil) Non-healing surgical wound (Chronic) Pilonidal cyst without abscess (Acute) Assessment: Nonhealing postsurgical wound. Plan: Wound has worsened. Largely due to location/ sheering. Without a Vac, this is expected. Had similar experience when [employer] Vac was dced before the SNAP was started. Restart Snap Vac and continue untill the wound is completely closed. Due to the holiday, will continue for a week. Increased protein intake recommended. Advised to call with any questions or concerns. Follow up in 1 week. This note was generated with [employer] software. It may contain incorrect words, spelling, and punctuation that were not noted in checking the note before signing.
[2018-06-05 10:32] VITALS: BP 115/58; PULSE 87; RESP 16; TEMP 36.7
--- NOTE | 2018-06-05 11:12 | PCM.WC.PN ---
(1) Non-healing surgical wound Status: Chronic Current Visit: Yes Code(s): T81.89XA - Other complications of procedures, not elsewhere classified, initial encounter Type of Wound Chief Complaint: Non healing surgical wound. History of Wound: Ms. Ochoa is a 22yo in apparent stable health who presents to the wound center due to non healing post surgical wound. She had a pilonidal cyst surgery in september due to recurrent pilonidal cysyt however,since surgery, she has had problems with healing. She currently packs by herself with gauze and changes these daily. She still follows up with her primary care physician and general surgeon. She denies chills, fever or otherwise feeling of unwell. Progress of Wound: New opening. Had problems with the Vac. - Physical Exam Vital Signs Temp Pulse Resp BP 98.0 F 87 16 115/58 L 06/05/18 10:32 06/05/18 10:32 06/05/18 10:32 06/05/18 10:32 General: Alert, Oriented x3, Cooperative, No apparent distress HEENT: Atraumatic, Normocephalic Oral: Moist Mucosa Neck: Supple Lungs: Normal air movement Abdomen: Non Tender Extremities: No cyanosis Skin: Ulcer/ Wound Wound Measurements and Assessment WC - Nurse 1 - General Ulcer Measurement Start: 05/13/18 12:39 Freq: Status: Active Protocol: Activity Type Activity Date Activity User E-Sign Co-Sign Detail Recorded Client Recorded Date Recorded By Document 06/05/18 10:32 DV [id number] 06/05/18 10:38 DV 06/05/18 10:32 Wound Center Nurse 1 [Ulcer Assessment] #1 Pilonidal -Combined with other wound No -Current Size (cm) - Length 2.0 -Current Size (cm) - Width 0.5 -Current Size (cm) - Depth 0.2 -Total Square Cm 1.00 -Photo Taken No -Epithelialization None Present -Tunneling No -Undermining/Tunneling No -Circular Undermining No -Classification - Thickness Full Thickness without Exposed Support Structure -Exudate Amt Small (1-33%) -Exudate Type Serosanguineous -Wound Margin Flat & Intact -Granulation Amt Small (1-33%) -Granulation Quality Red -Slough/Fibrin Yes -Necrosis Amt Small (1-33%) -Necrotic Tissue Type Adherent Slough -Structure Exposed None/Limited to Skin Breakdown -Texture (Halima-wound Skin Appearance) Assessed Scarring -Moisture (Halima-wound Skin Appearance Assessed ) Weeping -Color (Halima-wound Skin Appearance) Assessed Erythema -Temperature (Halima-wound Skin No Abnormality Appearance) (Pt Warm) -Tenderness on Palpation (Halima-wound Yes Skin Appearance) -Ulcer Cleansing Rinsed/ Irrigated with Saline -Foul Odor after Cleansing No -Anesthetic Used 5% Lidocaine Gel WC - Nurse 2 - General Ulcer CM Notes Start: 05/13/18 12:39 Freq: Status: Active Protocol: Activity Type Activity Date Activity User E-Sign Co-Sign Detail Recorded Client Recorded Date Recorded By Document 06/05/18 10:59 JS [id number] 06/05/18 11:03 06/05/18 10:59 Wound Center Nurse 2 [Procedure/Treatment] -Time 11:03 -Correct Patient Yes -Correct Side, Site, Position Yes -Correct Procedure Yes -Procedure Performed Yes -Type of Procedure Debridement -Clinical Debridement Subcutaneous -Post Debridement Size (cm) - Length 2.5 -Post Debridement Size (cm) - Width 0.6 -Post Debridement Size (cm) - Depth 0.5 -Total Square Cm 1.50 -Wound/Ulcer Outcome Not Healed -Ulcer Cleansing Rinsed/ Irrigated with Saline -Foul Odor after Cleansing No -Bioengineered Tissue No -Bleeding Controlled with NA -Offloading Yes -Treatment Response Procedure Tolerated Well [See Physician Procedure note for Specifics] Pain Scale: 0-10 Numeric [Pain] -Is Patient Pain Free? Yes Musculoskeletal: No Muscle Wasting Neurological: Cranial nerves II-XII grossly intact Psych/Mental Status: Normal Affect Debridement Note Post-Debridement Measurements/Treatment WC - Nurse 2 - General Ulcer CM Notes Start: 05/13/18 12:39 Freq: Status: Active Protocol: Activity Type Activity Date Activity User E-Sign Co-Sign Detail Recorded Client Recorded Date Recorded By Document 05/24/18 11:35 JS [id number] 05/24/18 11:37 JS Document 05/30/18 10:35 MW [id number] 05/30/18 10:37 MW Document 06/05/18 10:59 JS [id number] 06/05/18 11:03 JS 12/14/18 12/20/18 12/26/18 11:35 10:35 10:59 Wound Center Nurse 2 #1 Pilonidal -Time 11:36 10:35 11:03 -Correct Patient Yes Yes Yes -Correct Side, Site, Position Yes Yes Yes -Correct Procedure Yes Yes Yes -Procedure Performed Yes Yes Yes -Type of Procedure Debridement Debridement Debridement -Clinical Debridement Subcutaneous Subcutaneous Subcutaneous -Post Debridement Size (cm) - Length 1.0 1.5 2.5 -Post Debridement Size (cm) - Width 0.7 0.6 0.6 -Post Debridement Size (cm) - Depth 0.1 0.5 0.5 -Total Square Cm 0.70 0.90 1.50 -Wound/Ulcer Outcome Not Healed Not Healed Not Healed -Ulcer Cleansing Rinsed/ Rinsed/ Rinsed/ Irrigated with Irrigated with Irrigated with Saline Saline Saline -Foul Odor after Cleansing No No No -Bioengineered Tissue No No No -Topical Lidocaine (%) 4 -Lidocaine (ml) 5 -Bleeding Controlled with NA Pressure NA -Offloading No No Yes -Treatment Response Procedure Procedure Procedure Tolerated Well Tolerated Well Tolerated Well Pain Scale: 0-10 Numeric Is Patient Pain Free? Yes Yes Yes Wound debrided: Midline Buttock Wound Grade/Stage: Stage II Type of Debridement: Excisional debridement Anesthesia Used: 4% Lidocaine Solution Depth: Down to and including healthy tissue, in the subcutaneous layer Percentage of wound debrided: 100 Instrument Used: 3mm curette Tissue Removed: slough and devitalized tissue Severity: Fat Layer Exposed Amount of bleeding with debridement: Mild Bleeding Controlled with: Pressure Patient tolerated procedure well Assessment/Plan Active Problems (Last Reviewed 12/31/17 @ 10:12 by Roopa Neil) Non-healing surgical wound (Chronic) Pilonidal cyst without abscess (Acute) Assessment: Nonhealing postsurgical wound. Plan: Problems with Snap over the last week. took it off yesterday. Debridement done as documented above, procedure was well tolerated. Continue Snap Vac and continue untill the wound is completely closed. Follow up on sunday, sunday, sunday, sunday and sunday for nurse change. Increased protein intake recommended. Advised to call with any questions or concerns. Follow up with me in 2 weeks. This note was generated with [employer] dictation software. It may contain incorrect words, spelling, and punctuation that were not noted in checking the note before signing.
--- NOTE | 2018-06-05 11:16 | PN.PCM_ITS ---
(1) Non-healing surgical wound Status: Chronic Current Visit: Yes Code(s): T81.89XA - Other complications of procedures, not elsewhere classified, initial encounter Type of Wound Chief Complaint: Non healing surgical wound. History of Wound: Ms. Ochoa is a 22yo in apparent stable health who presents to the wound center due to non healing post surgical wound. She had a pilonidal cyst surgery in september due to recurrent pilonidal cysyt however,since surgery, she has had problems with healing. She currently packs by herself with gauze and changes these daily. She still follows up with her primary care physician and general surgeon. She denies chills, fever or otherwise feeling of unwell. Progress of Wound: New opening. Had problems with the Vac. - Physical Exam Vital Signs Temp Pulse Resp BP 98.0 F 87 16 115/58 L 06/05/18 10:32 06/05/18 10:32 06/05/18 10:32 06/05/18 10:32 General: Alert, Oriented x3, Cooperative, No apparent distress HEENT: Atraumatic, Normocephalic Oral: Moist Mucosa Neck: Supple Lungs: Normal air movement Abdomen: Non Tender Extremities: No cyanosis Skin: Ulcer/ Wound Wound Measurements and Assessment WC - Nurse 1 - General Ulcer Measurement Start: 05/13/18 12:39 Freq: Status: Active Protocol: Activity Type Activity Date Activity User E-Sign Co-Sign Detail Recorded Client Recorded Date Recorded By Document 06/05/18 10:32 DV [id number] 06/05/18 10:38 DV 06/05/18 10:32 Wound Center Nurse 1 [Ulcer Assessment] #1 Pilonidal -Combined with other wound No -Current Size (cm) - Length 2.0 -Current Size (cm) - Width 0.5 -Current Size (cm) - Depth 0.2 -Total Square Cm 1.00 -Photo Taken No -Epithelialization None Present -Tunneling No -Undermining/Tunneling No -Circular Undermining No -Classification - Thickness Full Thickness without Exposed Support Structure -Exudate Amt Small (1-33%) -Exudate Type Serosanguineous -Wound Margin Flat & Intact -Granulation Amt Small (1-33%) -Granulation Quality Red -Slough/Fibrin Yes -Necrosis Amt Small (1-33%) -Necrotic Tissue Type Adherent Slough -Structure Exposed None/Limited to Skin Breakdown -Texture (Halima-wound Skin Appearance) Assessed Scarring -Moisture (Halima-wound Skin Appearance Assessed ) Weeping -Color (Halima-wound Skin Appearance) Assessed Erythema -Temperature (Halima-wound Skin No Abnormality Appearance) (Pt Warm) -Tenderness on Palpation (Halima-wound Yes Skin Appearance) -Ulcer Cleansing Rinsed/ Irrigated with Saline -Foul Odor after Cleansing No -Anesthetic Used 5% Lidocaine Gel WC - Nurse 2 - General Ulcer CM Notes Start: 05/13/18 12:39 Freq: Status: Active Protocol: Activity Type Activity Date Activity User E-Sign Co-Sign Detail Recorded Client Recorded Date Recorded By Document 06/05/18 10:59 JS [id number] 06/05/18 11:03 06/05/18 10:59 Wound Center Nurse 2 [Procedure/Treatment] -Time 11:03 -Correct Patient Yes -Correct Side, Site, Position Yes -Correct Procedure Yes -Procedure Performed Yes -Type of Procedure Debridement -Clinical Debridement Subcutaneous -Post Debridement Size (cm) - Length 2.5 -Post Debridement Size (cm) - Width 0.6 -Post Debridement Size (cm) - Depth 0.5 -Total Square Cm 1.50 -Wound/Ulcer Outcome Not Healed -Ulcer Cleansing Rinsed/ Irrigated with Saline -Foul Odor after Cleansing No -Bioengineered Tissue No -Bleeding Controlled with NA -Offloading Yes -Treatment Response Procedure Tolerated Well [See Physician Procedure note for Specifics] Pain Scale: 0-10 Numeric [Pain] -Is Patient Pain Free? Yes Musculoskeletal: No Muscle Wasting Neurological: Cranial nerves II-XII grossly intact Psych/Mental Status: Normal Affect Debridement Note Post-Debridement Measurements/Treatment WC - Nurse 2 - General Ulcer CM Notes Start: 05/13/18 12:39 Freq: Status: Active Protocol: Activity Type Activity Date Activity User E-Sign Co-Sign Detail Recorded Client Recorded Date Recorded By Document 05/24/18 11:35 JS [id number] 05/24/18 11:37 JS Document 05/30/18 10:35 MW [id number] 05/30/18 10:37 MW Document 06/05/18 10:59 JS [id number] 06/05/18 11:03 JS 12/14/18 12/20/18 12/26/18 11:35 10:35 10:59 Wound Center Nurse 2 #1 Pilonidal -Time 11:36 10:35 11:03 -Correct Patient Yes Yes Yes -Correct Side, Site, Position Yes Yes Yes -Correct Procedure Yes Yes Yes -Procedure Performed Yes Yes Yes -Type of Procedure Debridement Debridement Debridement -Clinical Debridement Subcutaneous Subcutaneous Subcutaneous -Post Debridement Size (cm) - Length 1.0 1.5 2.5 -Post Debridement Size (cm) - Width 0.7 0.6 0.6 -Post Debridement Size (cm) - Depth 0.1 0.5 0.5 -Total Square Cm 0.70 0.90 1.50 -Wound/Ulcer Outcome Not Healed Not Healed Not Healed -Ulcer Cleansing Rinsed/ Rinsed/ Rinsed/ Irrigated with Irrigated with Irrigated with Saline Saline Saline -Foul Odor after Cleansing No No No -Bioengineered Tissue No No No -Topical Lidocaine (%) 4 -Lidocaine (ml) 5 -Bleeding Controlled with NA Pressure NA -Offloading No No Yes -Treatment Response Procedure Procedure Procedure Tolerated Well Tolerated Well Tolerated Well Pain Scale: 0-10 Numeric Is Patient Pain Free? Yes Yes Yes Wound debrided: Midline Buttock Wound Grade/Stage: Stage II Type of Debridement: Excisional debridement Anesthesia Used: 4% Lidocaine Solution Depth: Down to and including healthy tissue, in the subcutaneous layer Percentage of wound debrided: 100 Instrument Used: 3mm curette Tissue Removed: slough and devitalized tissue Severity: Fat Layer Exposed Amount of bleeding with debridement: Mild Bleeding Controlled with: Pressure Patient tolerated procedure well Assessment/Plan Active Problems (Last Reviewed 12/31/17 @ 10:12 by Roopa Neil) Non-healing surgical wound (Chronic) Pilonidal cyst without abscess (Acute) Assessment: Nonhealing postsurgical wound. Plan: Problems with Snap over the last week. took it off yesterday. Debridement done as documented above, procedure was well tolerated. Continue Snap Vac and continue untill the wound is completely closed. Follow up on sunday, sunday, sunday, sunday and sunday for nurse change. Increased protein intake recommended. Advised to call with any questions or concerns. Follow up with me in 2 weeks. This note was generated with [employer] dictation software. It may contain incorrect words, spelling, and punctuation that were not noted in checking the note before signing.
[2018-06-10 10:19] VITALS: BP 125/82; PULSE 84; RESP 18; TEMP 36.9
--- NOTE | 2018-06-12 13:55 | PCM.WC.PN ---
(1) Non-healing surgical wound Status: Chronic Code(s): T81.89XA - Other complications of procedures, not elsewhere classified, initial encounter (2) Abscess of buttock Status: Acute Code(s): L02.31 - Cutaneous abscess of buttock Type of Wound Date of Service: 06/10/18 Chief Complaint: Non healing surgical wound. History of Wound: Ms. Ochoa is a 22yo in apparent stable health who presents to the wound center due to non healing post surgical wound. She had a pilonidal cyst surgery in september due to recurrent pilonidal cysyt however,since surgery, she has had problems with healing. She currently packs by herself with gauze and changes these daily. She still follows up with her primary care physician and general surgeon. She denies chills, fever or otherwise feeling of unwell. Progress of Wound: New small round opening in buttocks cleft. Pilonidal wound is healing well with the SNAP vac. - Physical Exam Vital Signs Temp Pulse Resp BP 98.4 F 84 18 125/82 H 06/10/18 10:19 06/10/18 10:19 06/10/18 10:19 06/10/18 10:19 General: Alert, Oriented x3, Cooperative HEENT: Atraumatic Oral: Moist Mucosa Extremities: No edema Skin: Ulcer/ Wound - Buttocks with opened area on left buttocks. Wound Measurements and Assessment WC - Nurse 1 - General Ulcer Measurement Start: 05/13/18 12:39 Freq: Status: Active Protocol: Activity Type Activity Date Activity User E-Sign Co-Sign Detail Recorded Client Recorded Date Recorded By Document 06/10/18 10:19 [id number] 06/10/18 10:22 DL 06/10/18 10:19 Wound Center Nurse 1 [Ulcer Assessment] #2 L Buttocks -Current Size (cm) - Length 0.8 -Current Size (cm) - Width 2 -Current Size (cm) - Depth 0.2 -Total Square Cm 1.6 -Photo Taken Yes -Exudate Amt Medium (34-66%) -Exudate Type Purulent -Wound Margin Distinct, Outline Attached -Granulation Amt Large (67-100%) -Granulation Quality [place] Red -Necrosis Amt None Present (0 %) -Structure Exposed N/A -Texture (Halima-wound Skin Appearance) Localized Edema -Moisture (Halima-wound Skin Appearance Weeping ) -Color (Halima-wound Skin Appearance) Hemosiderin Staining -Temperature (Halima-wound Skin No Abnormality Appearance) (Pt Warm) -Ulcer Cleansing Wound Cleanser -Foul Odor after Cleansing No -Anesthetic Used 4% Lidocaine Solution Musculoskeletal: No Tenderness to Palpation of Joints or Extremities Neurological: Neuro grossly intact Psych/Mental Status: Normal Affect, Appropriate Debridement Note Post-Debridement Measurements/Treatment WC - Nurse 2 - General Ulcer CM Notes Start: 05/13/18 12:39 Freq: Status: Active Protocol: Activity Type Activity Date Activity User E-Sign Co-Sign Detail Recorded Client Recorded Date Recorded By Document 05/24/18 11:35 JS [id number] 05/24/18 11:37 JS Document 05/30/18 10:35 MW [id number] 05/30/18 10:37 MW Document 06/05/18 10:59 JS [id number] 06/05/18 11:03 JS 05/24/18 05/30/18 06/05/18 11:35 10:35 10:59 Wound Center Nurse 2 #1 Pilonidal -Time 11:36 10:35 11:03 -Correct Patient Yes Yes Yes -Correct Side, Site, Position Yes Yes Yes -Correct Procedure Yes Yes Yes -Procedure Performed Yes Yes Yes -Type of Procedure Debridement Debridement Debridement -Clinical Debridement Subcutaneous Subcutaneous Subcutaneous -Post Debridement Size (cm) - Length 1.0 1.5 2.5 -Post Debridement Size (cm) - Width 0.7 0.6 0.6 -Post Debridement Size (cm) - Depth 0.1 0.5 0.5 -Total Square Cm 0.70 0.90 1.50 -Wound/Ulcer Outcome Not Healed Not Healed Not Healed -Ulcer Cleansing Rinsed/ Rinsed/ Rinsed/ Irrigated with Irrigated with Irrigated with Saline Saline Saline -Foul Odor after Cleansing No No No -Bioengineered Tissue No No No -Topical Lidocaine (%) 4 -Lidocaine (ml) 5 -Bleeding Controlled with NA Pressure NA -Offloading No No Yes -Treatment Response Procedure Procedure Procedure Tolerated Well Tolerated Well Tolerated Well Pain Scale: 0-10 Numeric Is Patient Pain Free? Yes Yes Yes No debridement was completed today Assessment/Plan Assessment: Nonhealing postsurgical wound. Plan: Patient came in for a Snap Vac change today. Her pilonidal area looks clean and pink. I was asked to evaluate a new opened area on left buttocks. Patient has several small pimple like lesions. The lesion on her left buttocks is open and approx 8 mm. Wound cultures obtained. Will not start her on antibiotics at this time. She denies any fever, chills and area has no redness. She has an appointment with Dr. Baker later this week. Continue Snap Vac and continue untill the wound is completely closed. Increased protein intake recommended. Advised to call with any questions or concerns. This note was generated with [employer] dictation software. It may contain incorrect words, spelling, and punctuation that were not noted in checking the note before signing. Code Visit Office Visits / Consults: [id number] OV L2 Est
--- NOTE | 2018-06-12 14:04 | PN.PCM_ITS ---
(1) Non-healing surgical wound Status: Chronic Code(s): T81.89XA - Other complications of procedures, not elsewhere classified, initial encounter (2) Abscess of buttock Status: Acute Code(s): L02.31 - Cutaneous abscess of buttock Type of Wound Date of Service: 06/10/18 Chief Complaint: Non healing surgical wound. History of Wound: Ms. Ochoa is a 22yo in apparent stable health who presents to the wound center due to non healing post surgical wound. She had a pilonidal cyst surgery in september due to recurrent pilonidal cysyt however,since surgery, she has had problems with healing. She currently packs by herself with gauze and changes these daily. She still follows up with her primary care physician and general surgeon. She denies chills, fever or otherwise feeling of unwell. Progress of Wound: New small round opening in buttocks cleft. Pilonidal wound is healing well with the SNAP vac. - Physical Exam Vital Signs Temp Pulse Resp BP 98.4 F 84 18 125/82 H 06/10/18 10:19 06/10/18 10:19 06/10/18 10:19 06/10/18 10:19 General: Alert, Oriented x3, Cooperative HEENT: Atraumatic Oral: Moist Mucosa Extremities: No edema Skin: Ulcer/ Wound - Buttocks with opened area on left buttocks. Wound Measurements and Assessment WC - Nurse 1 - General Ulcer Measurement Start: 05/13/18 12:39 Freq: Status: Active Protocol: Activity Type Activity Date Activity User E-Sign Co-Sign Detail Recorded Client Recorded Date Recorded By Document 06/10/18 10:19 [id number] 06/10/18 10:22 DL 06/10/18 10:19 Wound Center Nurse 1 [Ulcer Assessment] #2 L Buttocks -Current Size (cm) - Length 0.8 -Current Size (cm) - Width 2 -Current Size (cm) - Depth 0.2 -Total Square Cm 1.6 -Photo Taken Yes -Exudate Amt Medium (34-66%) -Exudate Type Purulent -Wound Margin Distinct, Outline Attached -Granulation Amt Large (67-100%) -Granulation Quality [place] Red -Necrosis Amt None Present (0 %) -Structure Exposed N/A -Texture (Halima-wound Skin Appearance) Localized Edema -Moisture (Halima-wound Skin Appearance Weeping ) -Color (Halima-wound Skin Appearance) Hemosiderin Staining -Temperature (Halima-wound Skin No Abnormality Appearance) (Pt Warm) -Ulcer Cleansing Wound Cleanser -Foul Odor after Cleansing No -Anesthetic Used 4% Lidocaine Solution Musculoskeletal: No Tenderness to Palpation of Joints or Extremities Neurological: Neuro grossly intact Psych/Mental Status: Normal Affect, Appropriate Debridement Note Post-Debridement Measurements/Treatment WC - Nurse 2 - General Ulcer CM Notes Start: 05/13/18 12:39 Freq: Status: Active Protocol: Activity Type Activity Date Activity User E-Sign Co-Sign Detail Recorded Client Recorded Date Recorded By Document 05/24/18 11:35 JS [id number] 05/24/18 11:37 JS Document 05/30/18 10:35 MW [id number] 05/30/18 10:37 MW Document 06/05/18 10:59 JS [id number] 06/05/18 11:03 JS 05/24/18 05/30/18 06/05/18 11:35 10:35 10:59 Wound Center Nurse 2 #1 Pilonidal -Time 11:36 10:35 11:03 -Correct Patient Yes Yes Yes -Correct Side, Site, Position Yes Yes Yes -Correct Procedure Yes Yes Yes -Procedure Performed Yes Yes Yes -Type of Procedure Debridement Debridement Debridement -Clinical Debridement Subcutaneous Subcutaneous Subcutaneous -Post Debridement Size (cm) - Length 1.0 1.5 2.5 -Post Debridement Size (cm) - Width 0.7 0.6 0.6 -Post Debridement Size (cm) - Depth 0.1 0.5 0.5 -Total Square Cm 0.70 0.90 1.50 -Wound/Ulcer Outcome Not Healed Not Healed Not Healed -Ulcer Cleansing Rinsed/ Rinsed/ Rinsed/ Irrigated with Irrigated with Irrigated with Saline Saline Saline -Foul Odor after Cleansing No No No -Bioengineered Tissue No No No -Topical Lidocaine (%) 4 -Lidocaine (ml) 5 -Bleeding Controlled with NA Pressure NA -Offloading No No Yes -Treatment Response Procedure Procedure Procedure Tolerated Well Tolerated Well Tolerated Well Pain Scale: 0-10 Numeric Is Patient Pain Free? Yes Yes Yes No debridement was completed today Assessment/Plan Assessment: Nonhealing postsurgical wound. Plan: Patient came in for a Snap Vac change today. Her pilonidal area looks clean and pink. I was asked to evaluate a new opened area on left buttocks. Patient has several small pimple like lesions. The lesion on her left buttocks is open and approx 8 mm. Wound cultures obtained. Will not start her on antibiotics at this time. She denies any fever, chills and area has no redness. She has an appointment with Dr. Baker later this week. Continue Snap Vac and continue untill the wound is completely closed. Increased protein intake recommended. Advised to call with any questions or concerns. This note was generated with [employer] dictation software. It may contain incorrect words, spelling, and punctuation that were not noted in checking the note before signing. Code Visit Office Visits / Consults: [id number] OV L2 Est
== END 2018-06-10 23:59 ==
LOC: WC 10:30
PROVIDERS: Family Provider Family Medicine; PCP Family Medicine; Visit Provider Internal Medicine
DX: L05.91 Pilonidal cyst without abscess (principal); T81.89XA Other complications of procedures, not elsewhere classified, initial encounter; Y83.8 Other surgical procedures as the cause of abnormal reaction of the patient, or of later complication, without mention of misadventure at the time of the procedure
CPT/HCPCS: 11042; 87070; 87075; 87205; 97607; 99212; G0463

== ENCOUNTER 2018-07-11 10:00 | Outpatient (RCR) | payer BC, SELFPAY ==
[2018-06-11 00:49] VITALS: BP 125/82; PULSE 84; RESP 18; TEMP 36.9
[2018-06-27 10:13] VITALS: BP 137/75; PULSE 101; RESP 20; TEMP 36.8
--- NOTE | 2018-06-27 11:31 | PN.PCM_ITS ---
(1) Non-healing surgical wound Status: Chronic Current Visit: No Code(s): T81.89XA - Other complications of procedures, not elsewhere classified, initial encounter Type of Wound Chief Complaint: Non healing surgical wound. History of Wound: Ms. Ochoa is a 22yo in apparent stable health who presents to the wound center due to non healing post surgical wound. She had a pilonidal cyst surgery in september due to recurrent pilonidal cysyt however,since surgery, she has had problems with healing. She currently packs by herself with gauze and changes these daily. She still follows up with her primary care physician and general surgeon. She denies chills, fever or otherwise feeling of unwell. Progress of Wound: Stable. VAC was discontinued about 3 weeks ago. - Physical Exam Vital Signs Temp Pulse Resp BP 98.2 F 101 H 20 H 137/75 H 06/27/18 10:13 06/27/18 10:13 06/27/18 10:13 06/27/18 10:13 General: Alert, Oriented x3, Cooperative, No apparent distress HEENT: Atraumatic, Normocephalic Oral: Moist Mucosa Neck: Supple Lungs: Normal air movement Cardiovascular: Regular rate Abdomen: Non Tender Extremities: No cyanosis Skin: Ulcer/ Wound Wound Measurements and Assessment WC - Nurse 1 - General Ulcer Measurement Start: 06/17/18 15:52 Freq: Status: Active Protocol: Activity Type Activity Date Activity User E-Sign Co-Sign Detail Recorded Client Recorded Date Recorded By Document 06/27/18 10:13 [id number] 06/27/18 10:17 DL 06/27/18 10:13 Wound Center Nurse 1 [Ulcer Assessment] #2 L Buttocks -Current Size (cm) - Length 1 -Current Size (cm) - Width 0.5 -Current Size (cm) - Depth 0.3 -Total Square Cm 0.5 -Photo Taken No -Exudate Amt Small -Exudate Type Serosanguineous -Wound Margin Distinct, Outline Attached -Granulation Amt Large (67-100%) -Granulation Quality Red -Necrosis Amt None Present (0 %) -Structure Exposed N/A -Texture (Halima-wound Skin Appearance) Scarring -Moisture (Halima-wound Skin Appearance No Abnormality ) -Color (Halima-wound Skin Appearance) Rubor -Temperature (Halima-wound Skin No Abnormality Appearance) (Pt Warm) -Tenderness on Palpation (Halima-wound No Skin Appearance) -Ulcer Cleansing Rinsed/ Irrigated with Saline -Foul Odor after Cleansing No -Anesthetic Used 4% Lidocaine Solution WC - Nurse 2 - General Ulcer CM Notes Start: 06/17/18 15:52 Freq: Status: Active Protocol: Activity Type Activity Date Activity User E-Sign Co-Sign Detail Recorded Client Recorded Date Recorded By Document 06/27/18 10:39 MW [id number] 06/27/18 10:48 MW 06/27/18 10:39 Wound Center Nurse 2 [Procedure/Treatment] -Time 10:41 -Correct Patient Yes -Correct Side, Site, Position Yes -Correct Procedure Yes -Procedure Performed No -Post Debridement Size (cm) - Length 0 -Post Debridement Size (cm) - Width 0 -Post Debridement Size (cm) - Depth 0 -Total Square Cm 0 -Wound/Ulcer Outcome Healed- Epithelialized #1 Pilonidal -Time 10:43 -Correct Patient Yes -Correct Side, Site, Position Yes -Correct Procedure Yes -Procedure Performed Yes -Type of Procedure Debridement -Clinical Debridement Subcutaneous -Post Debridement Size (cm) - Length 1.1 -Post Debridement Size (cm) - Width 0.4 -Post Debridement Size (cm) - Depth 0.3 -Total Square Cm 0.44 -Wound/Ulcer Outcome Not Healed -Ulcer Cleansing Rinsed/ Irrigated with Saline -Foul Odor after Cleansing No -Bioengineered Tissue No -Bleeding Controlled with Pressure -Offloading No -Treatment Response Procedure Tolerated Well [See Physician Procedure note for Specifics] Pain Scale: 0-10 Numeric [Pain] -Is Patient Pain Free? Yes Musculoskeletal: No Muscle Wasting Neurological: Cranial nerves II-XII grossly intact Psych/Mental Status: Normal Affect Debridement Note Post-Debridement Measurements/Treatment - Nurse 2 - General Ulcer CM Notes Start: 06/17/18 15:52 Freq: Status: Active Protocol: Activity Type Activity Date Activity User E-Sign Co-Sign Detail Recorded Client Recorded Date Recorded By Document 06/27/18 10:39 MW [id number] 06/27/18 10:48 MW 06/27/18 10:39 Wound Center Nurse 2 #2 L Buttocks -Time 10:41 -Correct Patient Yes -Correct Side, Site, Position Yes -Correct Procedure Yes -Procedure Performed No -Post Debridement Size (cm) - Length 0 -Post Debridement Size (cm) - Width 0 -Post Debridement Size (cm) - Depth 0 -Total Square Cm 0 -Wound/Ulcer Outcome Healed- Epithelialized #1 Pilonidal -Time 10:43 -Correct Patient Yes -Correct Side, Site, Position Yes -Correct Procedure Yes -Procedure Performed Yes -Type of Procedure Debridement -Clinical Debridement Subcutaneous -Post Debridement Size (cm) - Length 1.1 -Post Debridement Size (cm) - Width 0.4 -Post Debridement Size (cm) - Depth 0.3 -Total Square Cm 0.44 -Wound/Ulcer Outcome Not Healed -Ulcer Cleansing Rinsed/ Irrigated with Saline -Foul Odor after Cleansing No -Bioengineered Tissue No -Bleeding Controlled with Pressure -Offloading No -Treatment Response Procedure Tolerated Well Pain Scale: 0-10 Numeric Is Patient Pain Free? Yes Wound debrided: Midline buttock Wound Grade/Stage: Stage III Type of Debridement: Excisional debridement Anesthesia Used: 4% Lidocaine Solution Depth: Down to and including healthy tissue, in the subcutaneous layer Percentage of wound debrided: 100 Instrument Used: 3mm curette Tissue Removed: Slough and devitalized tissue Severity: Fat Layer Exposed Amount of bleeding with debridement: Mild Bleeding Controlled with: Pressure Patient tolerated procedure well Assessment/Plan Assessment: Nonhealing postsurgical wound. Plan: Stable wound. No concerns at this time. Debridement done as documented above, procedure was well tolerated. Had her snap discontinued about 3 weeks ago during a nurse visit. She states that she has applied a silver dressing since it is not sure of the name. Switch to Promogran. Change daily. Advised to avoid significant repetitive movements. Increased protein intake recommended. Advised to call with any questions or concerns. Follow up with me in 1 week. This note was generated with [employer] software. It may contain incorrect words, spelling, and punctuation that were not noted in checking the note before signing.
[2018-07-11 10:12] VITALS: BP 131/60; PULSE 88; RESP 18; TEMP 36.6
--- NOTE | 2018-07-11 10:48 | PCM.WC.PN ---
(1) Non-healing surgical wound Status: Chronic Current Visit: No Code(s): T81.89XA - Other complications of procedures, not elsewhere classified, initial encounter Type of Wound Chief Complaint: Non healing surgical wound. History of Wound: Ms. Ochoa is a 22yo in apparent stable health who presents to the wound center due to non healing post surgical wound. She had a pilonidal cyst surgery in september due to recurrent pilonidal cysyt however,since surgery, she has had problems with healing. She currently packs by herself with gauze and changes these daily. She still follows up with her primary care physician and general surgeon. She denies chills, fever or otherwise feeling of unwell. Progress of Wound: Stable. No concerns at this time. - Physical Exam Vital Signs Temp Pulse Resp BP 98 F 88 18 131/60 H 07/11/18 10:12 07/11/18 10:12 07/11/18 10:12 07/11/18 10:12 General: Alert, Oriented x3, Cooperative, No apparent distress HEENT: Atraumatic, Normocephalic Oral: Moist Mucosa Neck: Supple Lungs: Normal air movement Abdomen: Non Tender Skin: Ulcer/ Wound Wound Measurements and Assessment WC - Nurse 1 - General Ulcer Measurement Start: 06/17/18 15:52 Freq: Status: Active Protocol: Activity Type Activity Date Activity User E-Sign Co-Sign Detail Recorded Client Recorded Date Recorded By Document 07/11/18 10:12 [id number] 07/11/18 10:18 RB 07/11/18 10:12 Wound Center Nurse 1 [Ulcer Assessment] #1 Pilonidal -Combined with other wound No -Current Size (cm) - Length 0.8 -Current Size (cm) - Width 0.5 -Current Size (cm) - Depth 0.2 -Total Square Cm 0.40 -Tunneling No -Undermining/Tunneling No -Circular Undermining No -Exudate Amt Small -Exudate Type Serosanguineous -Wound Margin Distinct, Outline Attached -Granulation Amt Large (67-100%) -Granulation Quality Red -Slough/Fibrin Yes -Necrosis Amt Small (1-33%) -Necrotic Tissue Type Adherent Slough -Structure Exposed N/A -Texture (Halima-wound Skin Appearance) Assessed -Moisture (Halima-wound Skin Appearance Assessed ) -Color (Halima-wound Skin Appearance) Assessed -Temperature (Halima-wound Skin No Abnormality Appearance) (Pt Warm) -Tenderness on Palpation (Halima-wound No Skin Appearance) -Ulcer Cleansing Rinsed/ Irrigated with Saline -Foul Odor after Cleansing No -Anesthetic Used 5% Lidocaine Gel WC - Nurse 2 - General Ulcer CM Notes Start: 06/17/18 15:52 Freq: Status: Active Protocol: Activity Type Activity Date Activity User E-Sign Co-Sign Detail Recorded Client Recorded Date Recorded By Document 07/11/18 10:22 MW [id number] 07/11/18 10:25 MW 07/11/18 10:22 Wound Center Nurse 2 [Procedure/Treatment] -Time 10:22 -Correct Patient Yes -Correct Side, Site, Position Yes -Correct Procedure Yes -Procedure Performed Yes -Type of Procedure Debridement -Clinical Debridement Subcutaneous -Post Debridement Size (cm) - Length 0.9 -Post Debridement Size (cm) - Width 0.4 -Post Debridement Size (cm) - Depth 0.2 -Total Square Cm 0.36 -Wound/Ulcer Outcome Not Healed -Ulcer Cleansing Rinsed/ Irrigated with Saline -Foul Odor after Cleansing No -Bioengineered Tissue No -Bleeding Controlled with Pressure -Offloading No -Treatment Response Procedure Tolerated Well [See Physician Procedure note for Specifics] Pain Scale: 0-10 Numeric [Pain] -Is Patient Pain Free? Yes Musculoskeletal: No Muscle Wasting Neurological: Cranial nerves II-XII grossly intact Psych/Mental Status: Normal Affect Debridement Note Post-Debridement Measurements/Treatment WC - Nurse 2 - General Ulcer CM Notes Start: 06/17/18 15:52 Freq: Status: Active Protocol: Activity Type Activity Date Activity User E-Sign Co-Sign Detail Recorded Client Recorded Date Recorded By Document 06/27/18 10:39 MW [id number] 06/27/18 10:48 MW Document 07/11/18 10:22 MW [id number] 07/11/18 10:25 MW 06/27/18 07/11/18 10:39 10:22 Wound Center Nurse 2 #2 L Buttocks -Time 10:41 -Correct Patient Yes -Correct Side, Site, Position Yes -Correct Procedure Yes -Procedure Performed No -Post Debridement Size (cm) - Length 0 -Post Debridement Size (cm) - Width 0 -Post Debridement Size (cm) - Depth 0 -Total Square Cm 0 -Wound/Ulcer Outcome Healed- Epithelialized #1 Pilonidal -Time 10:43 10:22 -Correct Patient Yes Yes -Correct Side, Site, Position Yes Yes -Correct Procedure Yes Yes -Procedure Performed Yes Yes -Type of Procedure Debridement Debridement -Clinical Debridement Subcutaneous Subcutaneous -Post Debridement Size (cm) - Length 1.1 0.9 -Post Debridement Size (cm) - Width 0.4 0.4 -Post Debridement Size (cm) - Depth 0.3 0.2 -Total Square Cm 0.44 0.36 -Wound/Ulcer Outcome Not Healed Not Healed -Ulcer Cleansing Rinsed/ Rinsed/ Irrigated with Irrigated with Saline Saline -Foul Odor after Cleansing No No -Bioengineered Tissue No No -Bleeding Controlled with Pressure Pressure -Offloading No No -Treatment Response Procedure Procedure Tolerated Well Tolerated Well Pain Scale: 0-10 Numeric Is Patient Pain Free? Yes Yes Wound debrided: Midline buttock Wound Grade/Stage: Stage III Type of Debridement: Excisional debridement Anesthesia Used: 4% Lidocaine Solution Depth: Down to and including healthy tissue, in the subcutaneous layer Percentage of wound debrided: 100 Instrument Used: 3mm curette Tissue Removed: Slough and devitalized tissue Severity: Fat Layer Exposed Amount of bleeding with debridement: Mild Bleeding Controlled with: Pressure Patient tolerated procedure well Assessment/Plan Assessment: Nonhealing postsurgical wound. Plan: Stable wound. No concerns at this time. Debridement done as documented above, procedure was well tolerated. Continue Promogran. Change daily. Advised to avoid significant repetitive movements. Increased protein intake recommended. Advised to call with any questions or concerns. Follow up with me in 1 week. This note was generated with [employer] dictation software. It may contain incorrect words, spelling, and punctuation that were not noted in checking the note before signing.
== END 2018-07-11 23:59 ==
LOC: WC 10:00
PROVIDERS: Family Provider Family Medicine; PCP Family Medicine; Visit Provider Internal Medicine
DX: L05.91 Pilonidal cyst without abscess (principal); T81.89XA Other complications of procedures, not elsewhere classified, initial encounter; Y83.8 Other surgical procedures as the cause of abnormal reaction of the patient, or of later complication, without mention of misadventure at the time of the procedure
CPT/HCPCS: 11042; 99213; G0463

== ENCOUNTER 2018-07-18 08:21 | Outpatient (RCR) | payer BC, SELFPAY ==
[2018-07-12 01:10] VITALS: BP 131/60; PULSE 88; RESP 18; TEMP 36.6
== END 2018-08-08 23:59 ==
LOC: WC 08:21
PROVIDERS: Family Provider Family Medicine; PCP Family Medicine; Visit Provider Internal Medicine
DX: Z09 Encounter for follow-up examination after completed treatment for conditions other than malignant neoplasm (principal)

== ENCOUNTER → 2022-08-14 | Outpatient (CLI) | payer BC, SELFPAY ==
[2022-08-14 12:45] LABS: Absolute Lymphocyte Count 1.24 X10^3/uL (0.83-4.51); Absolute Neutrophil Count 2.9 X10^3/uL (2.0-7.7); Basophil# 0.04 X10^3/uL; Basophil% 0.8 % (0-1); Eosinophil# 0.24 X10^3/uL; Hematocrit 40.7 % (37-47); Hemoglobin 13.3 g/dL (12.0-15.0); Lymphocyte # 1.24 X10^3/ul (0.83-4.51); Lymphocyte % 25.8 % (19-41); Mean Corp Hgb Conc 32.7 g/dL (32-36); Mean Corpuscular Hgb 31.8 pg (27.0-32.0); Mean Corpuscular Volume 97.4 fL (81-99); Mean Platelet Vol. 10.5 fl (6.2-12.0); Monocyte# 0.36 X10^3/uL; Monocyte% 7.5 % (0-10); NRBC Flagged by Analyzer 0 % (0-5); Neutrophil % 60.5 % (47-70); Platelet Count 275 K/mm3 (150-450); RBC Distribution Width CV 11.7 % (11.6-14.6); RBC Distribution Width SD 42.1 fl (35.1-43.9); Red Blood Count 4.18 M/mm3 (4.2-5.4); White Blood Count 4.8 K/mm3 (4.4-11.0)
[2022-08-14 13:47] LABS: ALB/GLOB Ratio 1.1 RATIO (0.9-2.4); AST(SGOT) 13 U/L (15-37); Alanine Aminotransfer ALT/SGPT 19 U/L (13-56); Albumin, Serum 4.1 g/dL (3.2-5.0); Alkaline Phosphatase 65 U/L (45-117); Anion Gap 6 (5-15); BUN 15 mg/dL (7-18); BUN/Creat Ratio 26.6 RATIO (10-20); Calcium,Total 9.3 mg/dL (8.5-10.1); Chloride 104 mmol/L (98-107); Creatinine, Serum 0.56 mg/dL (0.55-1.02); EST Glomerular Filtration Rate 139 mL/min (>60); Est Glom Filt Rate - Afr Amer 169 mL/min (>60); Globulin 3.7 g/dL (2.2-4.2); Glucose 86 mg/dL (74-106); Potassium 4.4 mmol/L (3.5-5.1); Protein, Total 7.8 g/dL (6.4-8.2); Sodium Level 137 mmol/L (136-145); T4 Free Direct 1.07 ng/dL (0.76-1.46); Thyroid Stim Hormone (TSH) 1.28 uIU/mL (0.358-3.74)
== END | disposition home or self-care (01) ==
LOC: BIMLAB 11:44
PROVIDERS: PCP Internal Medicine; Referring Provider Internal Medicine; Visit Provider Internal Medicine
DX: F41.9 Anxiety disorder, unspecified (principal); F32.A Depression, unspecified
CPT/HCPCS: 36415; 80053; 84439; 84443; 85025

== ENCOUNTER → 2023-08-20 | Outpatient (CLI) | payer BC, SELFPAY ==
[2023-08-20 12:37] LABS: Absolute Lymphocyte Count 1.49 X10^3/uL (0.83-4.51); Absolute Neutrophil Count 3.4 X10^3/uL (2.0-7.7); Basophil# 0.05 X10^3/uL; Basophil% 0.9 % (0-1); Eosinophil# 0.34 X10^3/uL; Eosinophils% 5.9 % (0-5); Hematocrit 41.9 % (37-47); Hemoglobin 13.8 g/dL (12.0-15.0); Lymphocyte # 1.49 X10^3/ul (0.83-4.51); Lymphocyte % 25.9 % (19-41); Mean Corp Hgb Conc 32.9 g/dL (32-36); Mean Corpuscular Hgb 31.5 pg (27.0-32.0); Mean Corpuscular Volume 95.7 fL (81-99); Mean Platelet Vol. 10.8 fl (6.2-12.0); Monocyte# 0.48 X10^3/uL; Monocyte% 8.3 % (0-10); NRBC Flagged by Analyzer 0 % (0-5); Neutrophil # 3.35 X10^3/uL (2.7-7.7); Neutrophil % 58.3 % (47-70); Platelet Count 309 K/mm3 (150-450); RBC Distribution Width CV 12.1 % (11.6-14.6); RBC Distribution Width SD 42.3 fl (35.1-43.9); Red Blood Count 4.38 M/mm3 (4.2-5.4); White Blood Count 5.8 K/mm3 (4.4-11.0)
[2023-08-20 13:25] LABS: ALB/GLOB Ratio 0.9 RATIO (0.9-2.4); AST(SGOT) 14 U/L (15-37); Alanine Aminotransfer ALT/SGPT 20 U/L (13-56); Albumin, Serum 3.8 g/dL (3.2-5.0); Alkaline Phosphatase 94 U/L (45-117); Anion Gap 6 (5-15); BUN 17 mg/dL (7-18); BUN/Creat Ratio 26.4 RATIO (10-20); Calcium,Total 9.1 mg/dL (8.5-10.1); Chloride 108 mmol/L (98-107); Cholesterol 131 mg/dL (200); Creatinine, Serum 0.64 mg/dL (0.55-1.02); EST Glomerular Filtration Rate 118 mL/min (>60); Est Glom Filt Rate - Afr Amer 143 mL/min (>60); Globulin 4.2 g/dL (2.2-4.2); Glucose 83 mg/dL (74-106); High Density Lipoprotein 72 mg/dL; Potassium 3.9 mmol/L (3.5-5.1); Sodium Level 137 mmol/L (136-145); Triglycerides 36 mg/dL; Very Low Density Lipoprotein 7 mg/dL (5-40)
== END | disposition home or self-care (01) ==
LOC: BIMLAB 10:50
PROVIDERS: PCP Internal Medicine; Visit Provider Internal Medicine
DX: Z00.00 Encounter for general adult medical examination without abnormal findings (principal)
CPT/HCPCS: 36415; 80053; 80061; 85025

== ENCOUNTER → 2024-08-25 | Outpatient (CLI) | payer BC, SELFPAY ==
[2024-08-25 12:48] LABS: Absolute Lymphocyte Count 1.24 X10^3/uL (0.83-4.51); Absolute Neutrophil Count 3.5 X10^3/uL (2.0-7.7); Basophil# 0.06 X10^3/uL; Basophil% 1.1 % (0-1); Eosinophil# 0.34 X10^3/uL; Eosinophils% 6.1 % (0-5); Hemoglobin 12.9 g/dL (12.0-15.0); Lymphocyte # 1.24 X10^3/ul (0.83-4.51); Lymphocyte % 22.3 % (19-41); Mean Corp Hgb Conc 33.1 g/dL (32-36); Mean Corpuscular Hgb 32.1 pg (27.0-32.0); Mean Platelet Vol. 11.4 fl (6.2-12.0); Monocyte# 0.43 X10^3/uL; Monocyte% 7.7 % (0-10); NRBC Flagged by Analyzer 0 % (0-5); Neutrophil # 3.46 X10^3/uL (2.7-7.7); Neutrophil % 62.4 % (47-70); Platelet Count 245 K/mm3 (150-450); RBC Distribution Width CV 12.5 % (11.6-14.6); RBC Distribution Width SD 44.4 fl (35.1-43.9); Red Blood Count 4.02 M/mm3 (4.2-5.4); White Blood Count 5.6 K/mm3 (4.4-11.0)
[2024-08-25 14:10] LABS: ALB/GLOB Ratio 1.4 RATIO (0.9-2.4); AST(SGOT) 19 U/L (<=31); Alanine Aminotransfer ALT/SGPT 15 U/L (<=34); Albumin, Serum 4.4 g/dL (3.5-5.0); Alkaline Phosphatase 79 U/L (35-104); Anion Gap 9 (5-15); BUN 18 mg/dL (4-19); BUN/Creat Ratio 31.3 RATIO (10-20); Calcium,Total 9.4 mg/dL (7.6-11.0); Carbon Dioxide 23.3 mmol/L (21.0-32.0); Chloride 105 mmol/L (98-108); Cholesterol 157 mg/dL (<=200); Creatinine, Serum 0.57 mg/dL (0.70-1.20); EST Glomerular Filtration Rate 129 (>60); Globulin 3.2 g/dL (2.2-4.2); Glucose 94 mg/dL (70-99); High Density Lipoprotein 82 mg/dL; Low Density Lipoprotein Calc. 67 mg/dL; Potassium 4.7 mmol/L (3.3-5.1); Protein, Total 7.6 g/dL (5.9-8.4); Sodium Level 138 mmol/L (133-145); Total Bilirubin 0.23 mg/dL (0.00-1.30); Triglycerides 39 mg/dL; Very Low Density Lipoprotein 8 mg/dL (5-40); cholesterol:hdl ratio screen 1.91
== END | disposition home or self-care (01) ==
LOC: BIMLAB 10:24
PROVIDERS: PCP Internal Medicine; Referring Provider Internal Medicine; Visit Provider Internal Medicine
DX: Z00.00 Encounter for general adult medical examination without abnormal findings (principal)
CPT/HCPCS: 36415; 80053; 80061; 85025

== ENCOUNTER → 2025-05-27 | Outpatient (CLI) | payer OTHER, SELFPAY ==
--- NOTE | 2025-05-27 09:41 | RAD_ITS ---
PROCEDURE: CHEST PA AND LATERAL 05/27/2025 REASON FOR EXAM: BRONCHITIS TECHNIQUE: Procedure Code: RADCXR Modality: DX Procedure: CHEST PA AND LATERAL COMPARISON: None FINDINGS: Hardware: None Heart: The heart size is normal. Mediastinum: The mediastinal contour is unremarkable. Lungs: The lungs are clear. Bones: The bones are unremarkable. RAD/Chest PA and Lateral IMPRESSION: NO ACUTE FINDINGS. Reading Location: [id number]
== END | disposition home or self-care (01) ==
LOC: MTRAD 09:38
PROVIDERS: PCP Internal Medicine; Referring Provider Nurse Practitioner Family; Visit Provider Nurse Practitioner Family
DX: J20.9 Acute bronchitis, unspecified (principal)
CPT/HCPCS: 71046